=== PATIENT | female | born 1985 | race Caucasian/White ===

== ENCOUNTER 2018-06-10 13:23 | Observation (INO) | payer BC ==
[2018-06-10] MEDS ORDERED: Ketorolac 30 MG/ML SDV IVPUSH ONE (15:45)
[2018-06-10] MEDS ORDERED: Sodium Chloride 0.9% 1,000 ML IV ONE (15:45)
[2018-06-10] MEDS ORDERED: Ondansetron 4 MG/2 ML SDV IVPUSH ONE (15:45)
[2018-06-10 16:48] LABS: CHLORIDE,CL 102 mmol/L (98-107); SODIUM,NA 142 mmol/L (136-145)
[2018-06-10] MEDS ORDERED: Potassium Chloride Riders 40 MEQ in Premix Bag 1 BAG IV ONE (17:31)
[2018-06-10] MEDS ORDERED: Iopamidol 755 MG/ML 500 ML Multipack Bottle IVPUSH STA (19:29)
--- NOTE | 2018-06-10 20:29 | CT ---
INDICATION: Pain. Gastric bypass 7 weeks ago. History of , D and C, constipation and abdominal pain. TECHNIQUE: CT abdomen and pelvis acquired with 100 mL of Isovue 370 IV contrast. COMPARISON: None. FINDINGS: Lower chest: Unremarkable. Liver: Unremarkable. Spleen: Unremarkable. Pancreas: Unremarkable. Gallbladder and bile ducts: Unremarkable. Kidneys: Unremarkable. Adrenal glands: Unremarkable. GI tract: Changes of gastric bypass. No bowel obstruction or focal inflammatory changes involving the GI tract. The appendix is normal in appearance. No free air, free fluid or drainable fluid collection. Vascular structures: Unremarkable. Lymph nodes: Unremarkable. Pelvic Organs: Intrauterine device is present. Low densities suggesting nabothian cysts in the cervix. Bilateral adnexal regions as imaged are unremarkable. Bladder as imaged is unremarkable. Bones: No acute abnormality. IMPRESSION: No acute intra-abdominal or pelvic abnormality. Dictated by Abner Cardoso MD @ 06/10/2018 8:26:35 PM Please note that all CT scans at this facility use dose modulation, iterative reconstruction, and/or weight-based dosing when appropriate to reduce radiation dose to as low as reasonably achievable. Dictated by: Abner Cardoso MD @ 06/10/2018 20:27:08 (Electronically Signed)
--- NOTE | 2018-06-10 21:09 | EDM.PDOC ---
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 Musculoskeletal History: Reports: None Neurological History: Reports: None Psychiatric History: Reports: None Endocrine/Metabolic History: Reports: None Hematologic History: Reports: None Immunologic History: Reports: None Oncologic (Cancer) History: Reports: None Dermatologic History: Reports: None - Infectious Disease History Infectious Disease History: Reports: None - Past Surgical History Head Surgeries/Procedures: Reports: None GI Surgical History: Reports: Bariatric Procedure Other GI Surgeries/Procedures: gastric bypass 7 weeks ago Female Surgical History: Reports: Section, D&C Neurological Surgical History: Reports: None Social & Family History - Tobacco Use Smoking Status *Q: Never Smoker Second Hand Smoke Exposure: No - Caffeine Use Caffeine Use: Reports: None - Recreational Drug Use Recreational Drug Use: No Course - Vital Signs Last Recorded V/S: Last Vital Signs Temp 35.7 C 06/10/18 14:26 Pulse 84 06/10/18 20:00 Resp 18 06/10/18 20:00 BP 107/69 06/10/18 20:00 Pulse Ox 97 06/10/18 20:00 - Orders/Labs/Meds Orders: Active Orders 24 hr Category Date Time Status Admission Status [Patient Status] [ADT] Stat ADT 06/10/18 20:43 Ordered EKG Documentation Completion [RC] STAT Care 06/10/18 17:30 Active Notify Provider Consults [RC] ASDIRECTED Care 06/10/18 20:46 Ordered Consult to Physician [CONS] Stat Cons 06/10/18 20:45 Ordered CULTURE URINE [RM] Stat Lab 06/10/18 17:22 Received Potassium Chloride Riders [KCL 40 MEQ in Water 100 ML] Med 06/10/18 17:31 Active 40 meq Premix Bag 1 bag IV ONETIME Medication Orders Potassium Chloride 40 meq/ (Premix) 100 mls @ 25 mls/hr IV ONETIME ONE Stop: 06/10/18 21:30 Last Admin: 06/10/18 18:16 Dose: 25 mls/hr Labs: Laboratory Tests 06/10/18 06/10/18 06/10/18 Range/Units 16:15 16:15 16:15 WBC 5.70 (4.0-11.0) K/uL RBC 5.26 (4.30-5.90) M/uL Hgb 14.2 (12.0-16.0) g/dL Hct 41.6 (36.0-46.0) % MCV 79.1 L (80.0-98.0) fL MCH 27.0 (27.0-32.0) pg MCHC 34.1 (31.0-37.0) g/dL RDW Std Deviation 44.8 (28.0-62.0) fl RDW Coeff of Madelyn 16 H (11.0-15.0) % Plt Count 264 (150-400) K/uL MPV 11.60 (7.40-12.00) fL Neut % (Auto) 64.5 (48.0-80.0) % Lymph % (Auto) 20.9 (16.0-40.0) % [place] % (Auto) 14.6 (0.0-15.0) % Eos % (Auto) 0.0 (0.0-7.0) % Baso % (Auto) 0.0 (0.0-1.5) % Neut # (Auto) 3.7 (1.4-5.7) K/uL Lymph # (Auto) 1.2 (0.6-2.4) K/uL [place] # (Auto) 0.8 (0.0-0.8) K/uL Eos # (Auto) 0.0 (0.0-0.7) K/uL Baso # (Auto) 0.0 (0.0-0.1) K/uL Nucleated RBC % 0.0 /100WBC Nucleated RBCs # 0 K/uL Sodium 142 (136-145) mmol/L Potassium 2.5 L (3.5-5.1) mmol/L Chloride 102 (98-107) mmol/L Carbon Dioxide 18.7 L (21.0-32.0) mmol/L BUN 2 L (7.0-18.0) mg/dL Creatinine 0.7 (0.6-1.0) mg/dL Est Cr Clr Drug Dosing 110.01 mL/min Estimated GFR (MDRD) > 60.0 ml/min Glucose 113 H (74-106) mg/dL Calcium 9.6 (8.5-10.1) mg/dL Magnesium 1.8 (1.8-2.4) mg/dL Total Bilirubin 0.8 (0.2-1.0) mg/dL AST 31 (15-37) IU/L ALT 72 H (14-63) IU/L Alkaline Phosphatase 84 (46-116) U/L Total Protein 8.1 (6.4-8.2) g/dL Albumin 4.1 (3.4-5.0) g/dL Globulin 4.0 (2.6-4.0) g/dL Albumin/Globulin Ratio 1.0 (0.9-1.6) Lipase 82 (73-393) U/L Urine Color Urine Appearance Urine pH (5.0-8.0) Ur Specific [place] (1.001-1.035) Urine Protein (NEGATIVE) mg/dL Urine Glucose (UA) (NEGATIVE) mg/dL Urine Ketones (NEGATIVE) mg/dL Urine Occult Blood (NEGATIVE) Urine Nitrite (NEGATIVE) Urine Bilirubin (NEGATIVE) Urine Ictotest Urine Urobilinogen (<2.0) EU/dL Ur Leukocyte Esterase (NEGATIVE) Urine RBC (0-2/HPF) Urine WBC (0-5/HPF) Ur Epithelial Cells (NONE-FEW) Amorphous Sediment (NEGATIVE) Urine Bacteria (NEGATIVE) Urine HCG, Qual (NEGATIVE) 06/10/18 06/10/18 Range/Units 17:22 17:22 WBC (4.0-11.0) K/uL RBC (4.30-5.90) M/uL Hgb (12.0-16.0) g/dL Hct (36.0-46.0) % MCV (80.0-98.0) fL MCH (27.0-32.0) pg MCHC (31.0-37.0) g/dL RDW Std Deviation (28.0-62.0) fl RDW Coeff of Madelyn (11.0-15.0) % Plt Count (150-400) K/uL MPV (7.40-12.00) fL Neut % (Auto) (48.0-80.0) % Lymph % (Auto) (16.0-40.0) % [place] % (Auto) (0.0-15.0) % Eos % (Auto) (0.0-7.0) % Baso % (Auto) (0.0-1.5) % Neut # (Auto) (1.4-5.7) K/uL Lymph # (Auto) (0.6-2.4) K/uL [place] # (Auto) (0.0-0.8) K/uL Eos # (Auto) (0.0-0.7) K/uL Baso # (Auto) (0.0-0.1) K/uL Nucleated RBC % /100WBC Nucleated RBCs # K/uL Sodium (136-145) mmol/L Potassium (3.5-5.1) mmol/L Chloride (98-107) mmol/L Carbon Dioxide (21.0-32.0) mmol/L BUN (7.0-18.0) mg/dL Creatinine (0.6-1.0) mg/dL Est Cr Clr Drug Dosing mL/min Estimated GFR (MDRD) ml/min Glucose (74-106) mg/dL Calcium (8.5-10.1) mg/dL Magnesium (1.8-2.4) mg/dL Total Bilirubin (0.2-1.0) mg/dL AST (15-37) IU/L ALT (14-63) IU/L Alkaline Phosphatase (46-116) U/L Total Protein (6.4-8.2) g/dL Albumin (3.4-5.0) g/dL Globulin (2.6-4.0) g/dL Albumin/Globulin Ratio (0.9-1.6) Lipase (73-393) U/L Urine Color YELLOW Urine Appearance SLT CLOUDY Urine pH 6.0 (5.0-8.0) Ur Specific [place] >= 1.030 (1.001-1.035) Urine Protein 100 H (NEGATIVE) mg/dL Urine Glucose (UA) NEGATIVE (NEGATIVE) mg/dL Urine Ketones >=80 (NEGATIVE) mg/dL Urine Occult Blood MODERATE H (NEGATIVE) Urine Nitrite NEGATIVE (NEGATIVE) Urine Bilirubin MODERATE H (NEGATIVE) Urine Ictotest NEGATIVE Urine Urobilinogen 1.0 (<2.0) EU/dL Ur Leukocyte Esterase SMALL H (NEGATIVE) Urine RBC 4-6 (0-2/HPF) Urine WBC 8-10 (0-5/HPF) Ur Epithelial Cells MODERATE (NONE-FEW) Amorphous Sediment MODERATE (NEGATIVE) Urine Bacteria FEW (NEGATIVE) Urine HCG, Qual NEGATIVE (NEGATIVE) Meds: Medications Generic Name Dose Route Start Last Admin Trade Name Freq PRN Reason Stop Dose Admin Potassium Chloride 40 meq/ 100 mls @ 25 mls/hr 06/10/18 17:31 06/10/18 18:16 Premix IV 06/10/18 21:30 25 mls/hr ONETIME ONE Administration Discontinued Medications Generic Name Dose Route Start Last Admin Trade Name Freq PRN Reason Stop Dose Admin Sodium Chloride 1,000 mls @ 999 mls/hr 06/10/18 15:45 06/10/18 16:18 Normal Saline IV 06/10/18 16:45 999 mls/hr STAT ONE Administration Iopamidol 100 ml 06/10/18 19:29 06/10/18 19:33 Isovue Multipack-370 (76%) IVPUSH 06/10/18 19:30 100 ml ONETIME STA Administration Ketorolac Tromethamine 30 mg 06/10/18 15:45 06/10/18 16:19 Toradol IVPUSH 06/10/18 15:46 Not Given ONETIME ONE Ondansetron HCl 4 mg 06/10/18 15:45 06/10/18 16:19 Zofran IVPUSH 06/10/18 15:46 4 mg ONETIME ONE Administration Departure - Discharge Information Referrals: PCP,Unknown [Primary Care Provider] - - My Orders Last 24 Hours: My Active Orders 06/10/18 17:22 CULTURE URINE [RM] Stat 06/10/18 17:30 EKG Documentation Completion [RC] STAT 06/10/18 17:31 Potassium Chloride Riders [KCL 40 MEQ in Water 100 ML] 40 meq Premix Bag 1 bag IV ONETIME 06/10/18 20:43 Admission Status [Patient Status] [ADT] Stat 06/10/18 20:45 Consult to Physician [CONS] Stat 06/10/18 20:46 Notify Provider Consults [RC] ASDIRECTED - Assessment/Plan Last 24 Hours: My Active Orders 06/10/18 17:22 CULTURE URINE [RM] Stat 06/10/18 17:30 EKG Documentation Completion [RC] STAT 06/10/18 17:31 Potassium Chloride Riders [KCL 40 MEQ in Water 100 ML] 40 meq Premix Bag 1 bag IV ONETIME 06/10/18 20:43 Admission Status [Patient Status] [ADT] Stat 06/10/18 20:45 Consult to Physician [CONS] Stat 06/10/18 20:46 Notify Provider Consults [RC] ASDIRECTED
[2018-06-10] MEDS ORDERED: Ondansetron 4 MG/2 ML SDV IVPUSH PRN (21:38)
[2018-06-10] MEDS ORDERED: Acetaminophen 325 MG Tab PO PRN (21:38)
[2018-06-10] MEDS ORDERED: oxyCODONE 5 MG Tab PO PRN (21:39)
[2018-06-10] MEDS ORDERED: Temazepam 15 MG Cap PO PRN (21:39)
[2018-06-10] MEDS ORDERED: Sodium Chloride 0.9% with KCl 1,000 ML IV SCH (21:45)
[2018-06-10] MEDS ORDERED: cefTRIAXone 1 GM in Sodium Chloride 0.9% 50 ML IV ONE (22:00)
[2018-06-11 06:44] LABS: CHLORIDE,CL 111 mmol/L (98-107); SODIUM,NA 147 mmol/L (136-145)
--- NOTE | 2018-06-11 07:27 | PCM.HP ---
H&P History of Present Illness - General Date of Service: 06/11/18 Admit Problem/Dx: Admission Diagnosis/Problem Admission Diagnosis/Problem Hypokalemia Source of Information: Patient History Limitations: Reports: No Limitations - History of Present Illness Initial Comments - Free Text/Narative: The patient is a 32-year-old lady who had presented to the emergency department with a complaint of nausea and vomiting. The patient is 7 weeks postop gastric bypass which was completed in [facility]. The patient says that she has had nausea and has been unable to keep fluids down for the past several days. She also has not been able to keep her vitamins and supplements down as well. In the emergency department the patient was noted to have severe hypokalemia. Surgery had been consulted in regards to possibility of this being a surgical issue with regards to her nausea and vomiting. She was admitted to observation for correction of the hypokalemia. The patient has had some mild abdominal pain but she has no specific aggravating or relieving factors. Onset of Symptoms: Reports: Sudden Duration of Symptoms: Reports: Day(s):, Getting Worse Location: Reports: Abdomen Quality: Reports: Stabbing, Throbbing Severity: Moderate Improves with: Reports: Medication, Rest Worsens with: Reports: Eating Associated Symptoms: Reports: Nausea/Vomiting - Related Data Allergies/Adverse Reactions: Allergies Allergy/AdvReac Type Severity Reaction Status Date / Time No Known Allergies Allergy Verified 06/11/18 05:08 Home Medications: Home Meds Promethazine [Phenergan] 25 ml EP Q6HR 06/10/18 [History] Scopolamine [Transderm-Scop] 1 mg EP 06/10/18 [History] Venlafaxine HCl [Venlafaxine ER] 150 mg PO DAILY 06/10/18 [History] Past Medical History HEENT History: Reports: None Other HEENT History: glasse Cardiovascular History: Reports: None Respiratory History: Reports: None Gastrointestinal History: Reports: None Genitourinary History: Reports: None 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: Musculoskeletal History: Reports: None Neurological History: Reports: None Psychiatric History: Reports: None Endocrine/Metabolic History: Reports: None Hematologic History: Reports: None Immunologic History: Reports: None Oncologic (Cancer) History: Reports: None Dermatologic History: Reports: None - Infectious Disease History Infectious Disease History: Reports: None - Past Surgical History Head Surgeries/Procedures: Reports: None GI Surgical History: Reports: Bariatric Procedure Other GI Surgeries/Procedures: gastric bypass 7 weeks ago Female Surgical History: Reports: Section, D&C Neurological Surgical History: Reports: None Social & Family History - Family History Cardiac: Reports: Other (See Below) Other Cardiac Family History: heart disease Respiratory: Reports: Asthma Endocrine/Metabolic: Reports: Diabetes, type II Oncologic: Reports: Other (See Below) Other Oncologic Family History: did not specify type - Tobacco Use Smoking Status *Q: Never Smoker Second Hand Smoke Exposure: No - Caffeine Use Caffeine Use: Reports: None - Recreational Drug Use Recreational Drug Use: No - Living Situation & Occupation Living situation: Reports: Occupation: Employed H&P Review of Systems - Review of Systems: Review Of Systems: See Below General: Reports: Weakness, Fatigue HEENT: Reports: No Symptoms Pulmonary: Reports: No Symptoms Cardiovascular: Reports: No Symptoms Gastrointestinal: Reports: Abdominal Pain, Nausea, Vomiting Genitourinary: Reports: No Symptoms Musculoskeletal: Reports: No Symptoms Skin: Reports: No Symptoms Psychiatric: Reports: No Symptoms Neurological: Reports: No Symptoms Hematologic/Lymphatic: Reports: No Symptoms Immunologic: Reports: No Symptoms Exam - Exam Exam: See Below - Vital Signs Vital Signs: Last Vital Signs Temp 36.4 C 06/11/18 04:00 Pulse 71 06/11/18 04:00 Resp 14 06/11/18 04:00 BP 101/62 06/11/18 04:00 Pulse Ox 98 06/11/18 04:00 Weight: 86.636 kg - Exam Quality Assessment: No: Supplemental Oxygen General: Alert, Oriented, Cooperative, Mild Distress HEENT: Conjunctiva Clear, EACs Clear, EOMI, Pupils Equal, PERRLA. No: Mucosa Moist & [place] (Dry) Neck: Supple, Trachea Midline Lungs: Clear to Auscultation, Normal Respiratory Effort Cardiovascular: Regular Rate, Regular Rhythm GI/Abdominal Exam: Normal Bowel Sounds, Soft, Non-Tender, No Distention, Other ( Obese) (Female) Exam: Deferred Rectal (Female) Exam: Deferred Back Exam: Normal Inspection, Full Range of Motion Extremities: Normal Inspection, No Pedal Edema Skin: Warm, Dry, Intact Neurological: Cranial Nerves Intact Neuro Extensive - Mental Status: Alert, Oriented x3 Psychiatric: Alert, Normal Affect, Normal Mood - Patient Data Lab Results Last 24 hrs: Laboratory Results - last 24 hr 06/10/18 06/10/18 06/10/18 Range/Units 16:15 16:15 16:15 WBC 5.70 (4.0-11.0) K/uL RBC 5.26 (4.30-5.90) M/uL Hgb 14.2 (12.0-16.0) g/dL Hct 41.6 (36.0-46.0) % MCV 79.1 L (80.0-98.0) fL MCH 27.0 (27.0-32.0) pg MCHC 34.1 (31.0-37.0) g/dL RDW Std Deviation 44.8 (28.0-62.0) fl RDW Coeff of Madelyn 16 H (11.0-15.0) % Plt Count 264 (150-400) K/uL MPV 11.60 (7.40-12.00) fL Neut % (Auto) 64.5 (48.0-80.0) % Lymph % (Auto) 20.9 (16.0-40.0) % [place] % (Auto) 14.6 (0.0-15.0) % Eos % (Auto) 0.0 (0.0-7.0) % Baso % (Auto) 0.0 (0.0-1.5) % Neut # (Auto) 3.7 (1.4-5.7) K/uL Lymph # (Auto) 1.2 (0.6-2.4) K/uL [place] # (Auto) 0.8 (0.0-0.8) K/uL Eos # (Auto) 0.0 (0.0-0.7) K/uL Baso # (Auto) 0.0 (0.0-0.1) K/uL Nucleated RBC % 0.0 /100WBC Nucleated RBCs # 0 K/uL Sodium 142 (136-145) mmol/L Potassium 2.5 L (3.5-5.1) mmol/L Chloride 102 (98-107) mmol/L Carbon Dioxide 18.7 L (21.0-32.0) mmol/L BUN 2 L (7.0-18.0) mg/dL Creatinine 0.7 (0.6-1.0) mg/dL Est Cr Clr Drug Dosing 110.01 mL/min Estimated GFR (MDRD) > 60.0 ml/min Glucose 113 H (74-106) mg/dL Calcium 9.6 (8.5-10.1) mg/dL Magnesium 1.8 (1.8-2.4) mg/dL Total Bilirubin 0.8 (0.2-1.0) mg/dL AST 31 (15-37) IU/L ALT 72 H (14-63) IU/L Alkaline Phosphatase 84 (46-116) U/L Total Protein 8.1 (6.4-8.2) g/dL Albumin 4.1 (3.4-5.0) g/dL Globulin 4.0 (2.6-4.0) g/dL Albumin/Globulin Ratio 1.0 (0.9-1.6) Lipase 82 (73-393) U/L Urine Color Urine Appearance Urine pH (5.0-8.0) Ur Specific [place] (1.001-1.035) Urine Protein (NEGATIVE) mg/dL Urine Glucose (UA) (NEGATIVE) mg/dL Urine Ketones (NEGATIVE) mg/dL Urine Occult Blood (NEGATIVE) Urine Nitrite (NEGATIVE) Urine Bilirubin (NEGATIVE) Urine Ictotest Urine Urobilinogen (<2.0) EU/dL Ur Leukocyte Esterase (NEGATIVE) Urine RBC (0-2/HPF) Urine WBC (0-5/HPF) Ur Epithelial Cells (NONE-FEW) Amorphous Sediment (NEGATIVE) Urine Bacteria (NEGATIVE) Urine HCG, Qual (NEGATIVE) 06/10/18 06/10/18 06/11/18 Range/Units 17:22 17:22 06:21 WBC 4.75 (4.0-11.0) K/uL RBC 4.47 (4.30-5.90) M/uL Hgb 11.6 L (12.0-16.0) g/dL Hct 35.6 L (36.0-46.0) % MCV 79.6 L (80.0-98.0) fL MCH 26.0 L (27.0-32.0) pg MCHC 32.6 (31.0-37.0) g/dL RDW Std Deviation 45.6 (28.0-62.0) fl RDW Coeff of Madelyn 16 H (11.0-15.0) % Plt Count 233 (150-400) K/uL MPV 11.70 (7.40-12.00) fL Neut % (Auto) 57.0 (48.0-80.0) % Lymph % (Auto) 33.1 (16.0-40.0) % [place] % (Auto) 9.9 (0.0-15.0) % Eos % (Auto) 0.0 (0.0-7.0) % Baso % (Auto) 0.0 (0.0-1.5) % Neut # (Auto) 2.7 (1.4-5.7) K/uL Lymph # (Auto) 1.6 (0.6-2.4) K/uL [place] # (Auto) 0.5 (0.0-0.8) K/uL Eos # (Auto) 0.0 (0.0-0.7) K/uL Baso # (Auto) 0.0 (0.0-0.1) K/uL Nucleated RBC % 0.0 /100WBC Nucleated RBCs # 0 K/uL Sodium (136-145) mmol/L Potassium (3.5-5.1) mmol/L Chloride (98-107) mmol/L Carbon Dioxide (21.0-32.0) mmol/L BUN (7.0-18.0) mg/dL Creatinine (0.6-1.0) mg/dL Est Cr Clr Drug Dosing mL/min Estimated GFR (MDRD) ml/min Glucose (74-106) mg/dL Calcium (8.5-10.1) mg/dL Magnesium (1.8-2.4) mg/dL Total Bilirubin (0.2-1.0) mg/dL AST (15-37) IU/L ALT (14-63) IU/L Alkaline Phosphatase (46-116) U/L Total Protein (6.4-8.2) g/dL Albumin (3.4-5.0) g/dL Globulin (2.6-4.0) g/dL Albumin/Globulin Ratio (0.9-1.6) Lipase (73-393) U/L Urine Color YELLOW Urine Appearance SLT CLOUDY Urine pH 6.0 (5.0-8.0) Ur Specific [place] >= 1.030 (1.001-1.035) Urine Protein 100 H (NEGATIVE) mg/dL Urine Glucose (UA) NEGATIVE (NEGATIVE) mg/dL Urine Ketones >=80 (NEGATIVE) mg/dL Urine Occult Blood MODERATE H (NEGATIVE) Urine Nitrite NEGATIVE (NEGATIVE) Urine Bilirubin MODERATE H (NEGATIVE) Urine Ictotest NEGATIVE Urine Urobilinogen 1.0 (<2.0) EU/dL Ur Leukocyte Esterase SMALL H (NEGATIVE) Urine RBC 4-6 (0-2/HPF) Urine WBC 8-10 (0-5/HPF) Ur Epithelial Cells MODERATE (NONE-FEW) Amorphous Sediment MODERATE (NEGATIVE) Urine Bacteria FEW (NEGATIVE) Urine HCG, Qual NEGATIVE (NEGATIVE) 06/11/18 Range/Units 06:21 WBC (4.0-11.0) K/uL RBC (4.30-5.90) M/uL Hgb (12.0-16.0) g/dL Hct (36.0-46.0) % MCV (80.0-98.0) fL MCH (27.0-32.0) pg MCHC (31.0-37.0) g/dL RDW Std Deviation (28.0-62.0) fl RDW Coeff of Madelyn (11.0-15.0) % Plt Count (150-400) K/uL MPV (7.40-12.00) fL Neut % (Auto) (48.0-80.0) % Lymph % (Auto) (16.0-40.0) % Benzie % (Auto) (0.0-15.0) % Eos % (Auto) (0.0-7.0) % Baso % (Auto) (0.0-1.5) % Neut # (Auto) (1.4-5.7) K/uL Lymph # (Auto) (0.6-2.4) K/uL [place]zie # (Auto) (0.0-0.8) K/uL Eos # (Auto) (0.0-0.7) K/uL Baso # (Auto) (0.0-0.1) K/uL Nucleated RBC % /100WBC Nucleated RBCs # K/uL Sodium 147 H (136-145) mmol/L Potassium 3.3 L (3.5-5.1) mmol/L Chloride 111 H (98-107) mmol/L Carbon Dioxide 19.3 L (21.0-32.0) mmol/L BUN 1 L (7.0-18.0) mg/dL Creatinine 0.6 (0.6-1.0) mg/dL Est Cr Clr Drug Dosing 118.39 mL/min Estimated GFR (MDRD) > 60.0 ml/min Glucose 79 (74-106) mg/dL Calcium 8.8 (8.5-10.1) mg/dL Magnesium (1.8-2.4) mg/dL Total Bilirubin (0.2-1.0) mg/dL AST (15-37) IU/L ALT (14-63) IU/L Alkaline Phosphatase (46-116) U/L Total Protein (6.4-8.2) g/dL Albumin (3.4-5.0) g/dL Globulin (2.6-4.0) g/dL Albumin/Globulin Ratio (0.9-1.6) Lipase (73-393) U/L Urine Color Urine Appearance Urine pH (5.0-8.0) Ur Specific [place] (1.001-1.035) Urine Protein (NEGATIVE) mg/dL Urine Glucose (UA) (NEGATIVE) mg/dL Urine Ketones (NEGATIVE) mg/dL Urine Occult Blood (NEGATIVE) Urine Nitrite (NEGATIVE) Urine Bilirubin (NEGATIVE) Urine Ictotest Urine Urobilinogen (<2.0) EU/dL Ur Leukocyte Esterase (NEGATIVE) Urine RBC (0-2/HPF) Urine WBC (0-5/HPF) Ur Epithelial Cells (NONE-FEW) Amorphous Sediment (NEGATIVE) Urine Bacteria (NEGATIVE) Urine HCG, Qual (NEGATIVE) Result Diagrams: 06/11/18 06:21 06/11/18 06:21 - Problem List (1) Acute hypokalemia SNOMED Code(s): 30484632 ICD Code: E87.6 - HYPOKALEMIA Status: Acute Priority: High Current Visit: Yes (2) UTI (urinary tract infection) SNOMED Code(s): 95707720 ICD Code: N39.0 - URINARY TRACT INFECTION, SITE NOT SPECIFIED Status: Acute Priority: High Current Visit: Yes Qualifiers: Urinary tract infection type: acute cystitis Hematuria presence: without hematuria Qualified Code(s): N30.00 - Acute cystitis without hematuria (3) Dehydration SNOMED Code(s): 95095701 ICD Code: E86.0 - DEHYDRATION Status: Acute Priority: High Current Visit: Yes (4) Nausea & vomiting SNOMED Code(s): 00511142 ICD Code: R11.2 - NAUSEA WITH VOMITING, UNSPECIFIED Status: Acute Priority: High Current Visit: Yes Qualifiers: Vomiting type: bilious vomiting Qualified Code(s): R11.14 - Bilious vomiting (5) Status post gastric bypass for obesity SNOMED Code(s): 757500272, 049019261, 484990227, 541155389 ICD Code: Z98.84 - BARIATRIC SURGERY STATUS Status: Chronic Priority: High Current Visit: Yes Problem Details: 7 weeks post (6) Obesity (BMI 30.0-34.9) SNOMED Code(s): 753407130296725 ICD Code: E66.9 - OBESITY, UNSPECIFIED Status: Chronic Priority: High Current Visit: Yes Problem List Initiated/Reviewed/Updated: Yes Orders Last 24hrs: Active Orders 24 hr Category Date Time Status Admission Status [Patient Status] [ADT] Stat ADT 06/10/18 20:43 Active Notify Provider Consults [RC] ASDIRECTED Care 06/10/18 20:46 Active Consult to Physician [CONS] Stat Cons 06/10/18 20:45 Active NPO [Nothing Per Oral Diet] [DIET] Diet 06/11/18 Breakfast Active CULTURE URINE [RM] Stat Lab 06/10/18 17:22 Received Acetaminophen [Tylenol] Med 06/10/18 21:38 Active 650 mg PO Q4H PRN Ondansetron [Zofran] Med 06/10/18 21:38 Active 4 mg IVPUSH Q4H PRN Sodium Chloride 0.9% with KCl [Normal Saline with 40 Med 06/10/18 21:45 Active mEq KCl] 1,000 ml IV ASDIRECTED Temazepam [Restoril] Med 06/10/18 21:39 Active 15 mg PO BEDTIME PRN oxyCODONE Med 06/10/18 21:39 Active 5 mg PO Q4H PRN Medication Orders Acetaminophen (Tylenol) 650 mg PO Q4H PRN PRN Reason: Pain (mild 1-3) Potassium Chloride/Sodium Chloride (Normal Saline With 40 Meq Kcl) 1,000 mls @ 100 mls/hr IV ASDIRECTED [facility] Last Admin: 06/10/18 22:29 Dose: 100 mls/hr Ondansetron HCl (Zofran) 4 mg IVPUSH Q4H PRN PRN Reason: Nausea/Vomiting Oxycodone HCl (Oxycodone) 5 mg PO Q4H PRN PRN Reason: Pain (moderate 4-6) Temazepam (Restoril) 15 mg PO BEDTIME PRN PRN Reason: Sleep Assessment/Plan Comment:: The patient is an otherwise healthy 32-year-old lady was having episodes of hypokalemia secondary to GI losses from nausea and vomiting. This is been complicated by the picture that the patient has had bariatric surgery 7 weeks ago. This was done secondary to the patient's obesity which is currently listed at 32.8 kg/m. When the patient's nausea and vomiting has been controlled sufficiently she should be able to continue with her supplements in order to help to avoid recurrence of hypokalemic events. Should also be noted that the patient should continue her iron supplements as well as with fluid hydration for dehydration she was noted to have mild anemia with low RBC indices indicating iron deficiency. If the patient's symptoms have been controlled and the patient's hypokalemia had been improved sufficiently she would be appropriate for discharge. Repeat laboratory studies have been ordered. The patient also has been encouraged to ambulate.
[2018-06-11] MEDS ORDERED: Sodium Chloride 0.9% 1,000 ML IV SCH (07:30)
[2018-06-11] MEDS: Venlafaxine 75 MG Cap.ER PO SCH (09:36)
[2018-06-11] MEDS: Enoxaparin 40 MG/0.4 ML Syringe SUBCUT SCH (09:37)
--- NOTE | 2018-06-11 11:52 | EDM.PDOC ---
ED HPI GENERAL MEDICAL PROBLEM - General Chief Complaint: General Stated Complaint: NEEDING FLUIDS Time Seen by Provider: 06/10/18 15:44 Source of Information: Reports: Patient History Limitations: Reports: No Limitations - History of Present Illness INITIAL COMMENTS - FREE TEXT/NARRATIVE: HISTORY AND PHYSICAL: History of present illness: (patient seen yesterday 06/11/18 but technical issue with note occurred yesterday ) Patient is a 32-year-old female who presents to the ED today with concern for dehydration and nausea. Patient states 7-8 weeks ago she had a history of gastric bypass surgery. Patient states she's had issues with being able to eat since surgery. Patient states she did have an appointment on Tuesday with her surgeon and she had been working on adjusting some of her food intake. Patient states over the past 6-8 days the thought of trying to eat has made her vomit. Since then she states she hasn't been able to keep any food down and minimal fluid. Patient denies fever, chills, chest pain, shortness of breath, or cough. Denies headache, neck stiff ness, change in vision, syncope, or near syncope. Denies abdominal pain, diarrhea, constipation, or dysuria. Has not noted any blood in urine or stool. Patient has been eating and drinking appropriately. Review of systems: As per history of present illness and below otherwise all systems reviewed and negative. Past medical history: As per history of present illness and as reviewed below otherwise noncontributory. Surgical history: As per history of present illness and as reviewed below otherwise noncontributory. Social history: See social history for further information Family history: As per history of present illness and as reviewed below otherwise noncontributory. Physical exam: General: Patient is alert, oriented, and in no acute distress. Patient sitting comfortably on exam table. HEENT: Atraumatic, normocephalic, pupils equal and reactive bilaterally, negative for conjunctival pallor or scleral icterus, mucous membranes dry, TMs normal bilaterally, throat clear, neck supple, nontender, trachea midline. No drooling or trismus noted. No meningeal signs. No hot potato voice noted. Lungs: Clear to auscultation, breath sounds equal bilaterally, chest nontender. Heart: S1S2, regular rate and rhythm without overt murmur Abdomen: Soft, nondistended, nontender. Negative for masses or hepatosplenomegaly. Negative for costovertebral tenderness. Pelvis: Stable nontender. Genitourinary: Deferred. Rectal: Deferred. Skin: Intact, warm, dry. No lesions or rashes noted. Extremities: Atraumatic, negative for cords or calf pain. Neurovascular unremarkable. Neuro: Awake, alert, oriented. Cranial nerves II through XII unremarkable. Cerebellum unremarkable. Motor and sensory unremarkable throughout. Exam nonfocal. Notes: Dr. Blackman consulted on patient and will admit to observation. Diagnostics: CBC, CMP, UA, abdominal pelvic CT Therapeutics: Saline, potassium rider Impression: Hypokalemia Dehydration h/o gastric bypass surgery Plan: 1. Admit to observation to Dr. Blackman. Definitive disposition and diagnosis as appropriate pending reevaluation and review of above. Onset: Sudden Duration: Day(s):, Getting Worse Location: Reports: Abdomen Quality: Reports: Stabbing, Throbbing Severity: Moderate Improves with: Reports: Medication, Rest Worsens with: Reports: Eating Associated Symptoms: Reports: Nausea/Vomiting - Related Data Allergies Allergy/AdvReac Type Severity Reaction Status Date / Time No Known Allergies Allergy Verified 06/11/18 05:08 Home Meds: Home Meds Scopolamine [Transderm-Scop] 1 mg EP 06/10/18 [History] Venlafaxine HCl [Venlafaxine ER] 150 mg PO DAILY 06/10/18 [History] Ciprofloxacin HCl 500 mg PO BID #10 tablet 06/11/18 [Rx] Ondansetron [Zofran ODT] 4 mg PO Q6H PRN #12 tab.dis 06/11/18 [Rx] Past Medical History HEENT History: Reports: None Other HEENT History: glasse Cardiovascular History: Reports: None Respiratory History: Reports: None Gastrointestinal History: Reports: None Genitourinary History: Reports: None [employer] History: Reports: Musculoskeletal History: Reports: None Neurological History: Reports: None Psychiatric History: Reports: None Endocrine/Metabolic History: Reports: None Hematologic History: Reports: None Immunologic History: Reports: None Oncologic (Cancer) History: Reports: None Dermatologic History: Reports: None - Infectious Disease History Infectious Disease History: Reports: None - Past Surgical History Head Surgeries/Procedures: Reports: None GI Surgical History: Reports: Bariatric Procedure Other GI Surgeries/Procedures: gastric bypass 7 weeks ago Female Surgical History: Reports: Section, D&C Neurological Surgical History: Reports: None Social & Family History - Family History Cardiac: Reports: Other (See Below) Other Cardiac Family History: heart disease Respiratory: Reports: Asthma Endocrine/Metabolic: Reports: Diabetes, type II Oncologic: Reports: Other (See Below) Other Oncologic Family History: did not specify type - Tobacco Use Smoking Status *Q: Never Smoker Second Hand Smoke Exposure: No - Caffeine Use Caffeine Use: Reports: None - Recreational Drug Use Recreational Drug Use: No - Living Situation & Occupation Living situation: Reports: Occupation: Employed ED ROS GENERAL - Review of Systems Review Of Systems: ROS reveals no pertinent complaints other than HPI. ED EXAM, GENERAL - Physical Exam Exam: See Below (See dictation) GI/Abdominal: Normal Bowel Sounds, Soft, Non-Tender, No Distention, Other (Obese ) Back Exam: Normal Inspection, Full Range of Motion Extremities: Normal Inspection, No Pedal Edema Course - Vital Signs Last Recorded V/S: Last Vital Signs Temp 35.9 C 06/11/18 07:28 Pulse 86 06/11/18 07:28 Resp 16 06/11/18 07:28 BP 111/75 06/11/18 07:28 Pulse Ox 99 06/11/18 07:28 - Orders/Labs/Meds Orders: Active Orders 24 hr Category Date Time Status CULTURE URINE [RM] Stat Lab 06/10/18 17:22 Received Medication Orders Acetaminophen (Tylenol) 650 mg PO Q4H PRN PRN Reason: Pain (mild 1-3) Enoxaparin Sodium (Lovenox) 40 mg SUBCUT Q24H [facility] Last Admin: 06/11/18 09:37 Dose: 40 mg Potassium Chloride/Sodium Chloride (Normal Saline With 40 Meq Kcl) 1,000 mls @ 100 mls/hr IV ASDIRECTED REUBEN Last Admin: 06/10/18 22:29 Dose: 100 mls/hr Sodium Chloride (Normal Saline) 1,000 mls @ 75 mls/hr IV ASDIRECTED REUBEN Last Admin: 06/11/18 09:35 Dose: 75 mls/hr Ondansetron HCl (Zofran) 4 mg IVPUSH Q4H PRN PRN Reason: Nausea/Vomiting Last Admin: 06/11/18 09:51 Dose: 4 mg Oxycodone HCl (Oxycodone) 5 mg PO Q4H PRN PRN Reason: Pain (moderate 4-6) Temazepam (Restoril) 15 mg PO BEDTIME PRN PRN Reason: Sleep Venlafaxine HCl (Effexor Xr) 150 mg PO DAILY REUBEN Last Admin: 06/11/18 09:36 Dose: 150 mg Labs: Laboratory Tests 06/10/18 06/10/18 06/10/18 Range/Units 16:15 16:15 16:15 WBC 5.70 (4.0-11.0) K/uL RBC 5.26 (4.30-5.90) M/uL Hgb 14.2 (12.0-16.0) g/dL Hct 41.6 (36.0-46.0) % MCV 79.1 L (80.0-98.0) fL MCH 27.0 (27.0-32.0) pg MCHC 34.1 (31.0-37.0) g/dL RDW Std Deviation 44.8 (28.0-62.0) fl RDW Coeff of Madelyn 16 H (11.0-15.0) % Plt Count 264 (150-400) K/uL MPV 11.60 (7.40-12.00) fL Neut % (Auto) 64.5 (48.0-80.0) % Lymph % (Auto) 20.9 (16.0-40.0) % Placer % (Auto) 14.6 (0.0-15.0) % Eos % (Auto) 0.0 (0.0-7.0) % Baso % (Auto) 0.0 (0.0-1.5) % Neut # (Auto) 3.7 (1.4-5.7) K/uL Lymph # (Auto) 1.2 (0.6-2.4) K/uL Placer # (Auto) 0.8 (0.0-0.8) K/uL Eos # (Auto) 0.0 (0.0-0.7) K/uL Baso # (Auto) 0.0 (0.0-0.1) K/uL Nucleated RBC % 0.0 /100WBC Nucleated RBCs # 0 K/uL Sodium 142 (136-145) mmol/L Potassium 2.5 L (3.5-5.1) mmol/L Chloride 102 (98-107) mmol/L Carbon Dioxide 18.7 L (21.0-32.0) mmol/L BUN 2 L (7.0-18.0) mg/dL Creatinine 0.7 (0.6-1.0) mg/dL Est Cr Clr Drug Dosing 110.01 mL/min Estimated GFR (MDRD) > 60.0 ml/min Glucose 113 H (74-106) mg/dL Calcium 9.6 (8.5-10.1) mg/dL Magnesium 1.8 (1.8-2.4) mg/dL Total Bilirubin 0.8 (0.2-1.0) mg/dL AST 31 (15-37) IU/L ALT 72 H (14-63) IU/L Alkaline Phosphatase 84 (46-116) U/L Total Protein 8.1 (6.4-8.2) g/dL Albumin 4.1 (3.4-5.0) g/dL Globulin 4.0 (2.6-4.0) g/dL Albumin/Globulin Ratio 1.0 (0.9-1.6) Lipase 82 (73-393) U/L Urine Color Urine Appearance Urine pH (5.0-8.0) Ur Specific [place] (1.001-1.035) Urine Protein (NEGATIVE) mg/dL Urine Glucose (UA) (NEGATIVE) mg/dL Urine Ketones (NEGATIVE) mg/dL Urine Occult Blood (NEGATIVE) Urine Nitrite (NEGATIVE) Urine Bilirubin (NEGATIVE) Urine Ictotest Urine Urobilinogen (<2.0) EU/dL Ur Leukocyte Esterase (NEGATIVE) Urine RBC (0-2/HPF) Urine WBC (0-5/HPF) Ur Epithelial Cells (NONE-FEW) Amorphous Sediment (NEGATIVE) Urine Bacteria (NEGATIVE) Urine HCG, Qual (NEGATIVE) 06/10/18 06/10/18 Range/Units 17:22 17:22 WBC (4.0-11.0) K/uL RBC (4.30-5.90) M/uL Hgb (12.0-16.0) g/dL Hct (36.0-46.0) % MCV (80.0-98.0) fL MCH (27.0-32.0) pg MCHC (31.0-37.0) g/dL RDW Std Deviation (28.0-62.0) fl RDW Coeff of Madelyn (11.0-15.0) % Plt Count (150-400) K/uL MPV (7.40-12.00) fL Neut % (Auto) (48.0-80.0) % Lymph % (Auto) (16.0-40.0) % Placer % (Auto) (0.0-15.0) % Eos % (Auto) (0.0-7.0) % Baso % (Auto) (0.0-1.5) % Neut # (Auto) (1.4-5.7) K/uL Lymph # (Auto) (0.6-2.4) K/uL Placer # (Auto) (0.0-0.8) K/uL Eos # (Auto) (0.0-0.7) K/uL Baso # (Auto) (0.0-0.1) K/uL Nucleated RBC % /100WBC Nucleated RBCs # K/uL Sodium (136-145) mmol/L Potassium (3.5-5.1) mmol/L Chloride (98-107) mmol/L Carbon Dioxide (21.0-32.0) mmol/L BUN (7.0-18.0) mg/dL Creatinine (0.6-1.0) mg/dL Est Cr Clr Drug Dosing mL/min Estimated GFR (MDRD) ml/min Glucose (74-106) mg/dL Calcium (8.5-10.1) mg/dL Magnesium (1.8-2.4) mg/dL Total Bilirubin (0.2-1.0) mg/dL AST (15-37) IU/L ALT (14-63) IU/L Alkaline Phosphatase (46-116) U/L Total Protein (6.4-8.2) g/dL Albumin (3.4-5.0) g/dL Globulin (2.6-4.0) g/dL Albumin/Globulin Ratio (0.9-1.6) Lipase (73-393) U/L Urine Color YELLOW Urine Appearance SLT CLOUDY Urine pH 6.0 (5.0-8.0) Ur Specific [place] >= 1.030 (1.001-1.035) Urine Protein 100 H (NEGATIVE) mg/dL Urine Glucose (UA) NEGATIVE (NEGATIVE) mg/dL Urine Ketones >=80 (NEGATIVE) mg/dL Urine Occult Blood MODERATE H (NEGATIVE) Urine Nitrite NEGATIVE (NEGATIVE) Urine Bilirubin MODERATE H (NEGATIVE) Urine Ictotest NEGATIVE Urine Urobilinogen 1.0 (<2.0) EU/dL Ur Leukocyte Esterase SMALL H (NEGATIVE) Urine RBC 4-6 (0-2/HPF) Urine WBC 8-10 (0-5/HPF) Ur Epithelial Cells MODERATE (NONE-FEW) Amorphous Sediment MODERATE (NEGATIVE) Urine Bacteria FEW (NEGATIVE) Urine HCG, Qual NEGATIVE (NEGATIVE) Meds: Medications Generic Name Dose Route Start Last Admin Trade Name Freq PRN Reason Stop Dose Admin Acetaminophen 650 mg 06/10/18 21:38 Tylenol PO Q4H PRN Pain (mild 1-3) Enoxaparin Sodium 40 mg 06/11/18 07:30 06/11/18 09:37 Lovenox SUBCUT 40 mg Q24H REUBEN Administration Potassium Chloride/Sodium Chloride 1,000 mls @ 100 mls/hr 06/10/18 21:45 22:29 Normal Saline With 40 Meq Kcl IV 100 mls/hr ASDIRECTED REUBEN Administration Sodium Chloride 1,000 mls @ 75 mls/hr 06/11/18 07:30 06/11/18 09:35 Normal Saline IV 75 mls/hr ASDIRECTED REUBEN Administration Ondansetron HCl 4 mg 06/10/18 21:38 06/11/18 09:51 Zofran IVPUSH 4 mg Q4H PRN Administration Nausea/Vomiting Oxycodone HCl 5 mg 06/10/18 21:39 Oxycodone PO Q4H PRN Pain (moderate 4-6) Temazepam 15 mg 06/10/18 21:39 Restoril PO BEDTIME PRN Sleep Venlafaxine HCl 150 mg 06/11/18 09:00 06/11/18 09:36 Effexor Xr PO 150 mg DAILY REUBEN Administration Discontinued Medications Generic Name Dose Route Start Last Admin Trade Name Freq PRN Reason Stop Dose Admin Sodium Chloride 1,000 mls @ 999 mls/hr 06/10/18 15:45 06/10/18 16:18 Normal Saline IV 06/10/18 16:45 999 mls/hr STAT ONE Administration Potassium Chloride 40 meq/ 100 mls @ 25 mls/hr 06/10/18 17:31 06/10/18 18:16 Premix IV 06/10/18 21:30 25 mls/hr ONETIME ONE Administration Ceftriaxone Sodium 1 gm/ 50 mls @ 100 mls/hr 06/10/18 22:00 06/11/18 00:11 Sodium Chloride IV 06/10/18 22:29 Not Given ONETIME ONE Ceftriaxone Sodium/Dextrose 50 mls @ 50 mls/hr 06/10/18 22:30 06/10/18 22:30 Rocephin In Dextrose,Iso-Osm 1 Gm/50 Ml IV 06/10/18 23:29 50 mls/hr ONETIME ONE Administration Iopamidol 100 ml 06/10/18 19:29 06/10/18 19:33 Isovue Multipack-370 (76%) IVPUSH 06/10/18 19:30 100 ml ONETIME STA Administration Ketorolac Tromethamine 30 mg 06/10/18 15:45 06/10/18 16:19 Toradol IVPUSH 06/10/18 15:46 Not Given ONETIME ONE Ondansetron HCl 4 mg 06/10/18 15:45 06/10/18 16:19 Zofran IVPUSH 06/10/18 15:46 4 mg ONETIME ONE Administration Departure - Departure Time of Disposition: 11:51 Disposition: Admitted As Inpatient 68 Clinical Impression: Hypokalemia, Dehydration, History of gastric bypass - Discharge Information *PRESCRIPTION DRUG MONITORING PROGRAM REVIEWED*: No *COPY OF PRESCRIPTION DRUG MONITORING REPORT IN PATIENT AUTUMN: No - My Orders Last 24 Hours: My Active Orders 06/10/18 17:22 CULTURE URINE [RM] Stat - Assessment/Plan Last 24 Hours: My Active Orders 06/10/18 17:22 CULTURE URINE [RM] Stat
[2018-06-11] MEDS ORDERED: Promethazine 25 MG Tab PO PRN (14:51)
[2018-06-11] MEDS: NS + KCl 20mEq/L 1,000 ML IV SCH ×2 (15:24→23:25)
[2018-06-11 15:47] LABS: CHLORIDE,CL 111 mmol/L (98-107); SODIUM,NA 146 mmol/L (136-145)
--- NOTE | 2018-06-11 18:09 | PCM.SN ---
- Free Text/Narrative Note: pt seen, chart reviewed; 1) uti > cipro X 5 days 2) replenish K as you are doing 3) keep on clear liquid till nausea improved 4) dulocolax 10 mg pr thanks for the consult and care of this pleasant pt; recall if questions
[2018-06-11] MEDS: Promethazine 25 MG/ML SDV IM PRN (18:32)
--- NOTE | 2018-06-12 00:14 | CONS ---
DATE OF CONSULTATION: 06/11/2018 DATE OF : 1985 PRIMARY CARE PHYSICIAN: None PCP REFERRING PHYSICIAN: Roosevelt Blackman DO CONSULTING QUESTION: Abdominal pain. HISTORY OF PRESENT ILLNESS: The patient is 32-year-old obese lady, 32.8 BMI today, 7 weeks' status post gastric bypass, laparoscopic surgery. Postop, the patient remarked she was doing fine at first and then the last 1 to 2 weeks, she started not feeling good and feeling dry heaves and also having diarrhea. With the situation not getting better, she sought help in the emergency room. CAT scan did not show any bowel obstruction or any dilated segment, but the patient continued to feel nausea and also potassium was low. The patient was admitted to Medicine to replenish the potassium. The patient remarked last bowel movement was about 6 days ago and was running diarrhea and in the hospital on the second day of hospitalization still feels nauseated. The patient absolutely denies any abdominal pain. Her abdominal pain has been resolved. The patient is passing gas and still feels nauseated. PAST MEDICAL HISTORY: Significant for no diabetes, DC, CVA, hypertension. PAST SURGICAL HISTORY: x1, D and C x1, and laparoscopic gastric bypass. ALLERGIES: Please refer to nursing for details. MEDICATION: Please refer to nursing for details. PHYSICAL EXAMINATION: GENERAL: A very pleasant lady getting up and getting out of bed in a freely manner and very polite and smiled to the doctor. HEENT EXAMINATION: Normocephalic and atraumatic. Sclerae are anicteric. LUNGS: Clear to auscultation. HEART: Regular rate and rhythm. ABDOMEN: Soft and nondistended. No pulsating tenderness in the midline abdominal structure. Well-healed laparoscopic surgical scar. Nontender. Normal bowel sounds in all four quadrants. No high-pitched bowel sounds. No hernia appreciated. LABORATORY DATA: Upon consultation, white count is 4.8, H and H is 12 and 36, and platelet is 238. Sodium 146, potassium 3.2, BUN is 1 and creatinine is 0.6. Total bilirubin is 0.8, AST and ALT 31 and 72, alkaline phosphatase is 84. Urine shows 4 to 6 rbc's and 8 to 10 wbc's and likely suggests UTI. IMPRESSION: Nauseated and hypokalemic, probably possible hypokalemic ileus and from UA, probably also the patient has a touch of urinary tract infection, will get a 5- day treatment of Cipro or Levaquin and will keep her on either clear liquid or ice chips at least for 2 to 3 days and also will give a dose of 10 mg Dulcolax per rectum and help her to move her bowel. The patient does not seem to have any abdominal pain at this stage. Abdominal pain has completely resolved and does not seem to have any surgical issue at this stage. We will sign off and recall if question. I agree with you to continue to replenish potassium. SUZAN / SINDY /[id number]
[2018-06-12 06:41] LABS: CHLORIDE,CL 114 mmol/L (98-107); SODIUM,NA 149 mmol/L (136-145)
[2018-06-12] MEDS: Enoxaparin 40 MG/0.4 ML Syringe SUBCUT SCH (06:50)
[2018-06-12] MEDS: NS + KCl 20mEq/L 1,000 ML IV SCH (08:09)
[2018-06-12] MEDS ORDERED: Magnesium Sulfate/Water 2 GM in Premix Bag 1 BAG IV ONE (09:03)
[2018-06-12] MEDS: Venlafaxine 75 MG Cap.ER PO SCH (09:06)
[2018-06-12] MEDS: Promethazine 25 MG/ML SDV IM PRN (09:07)
--- NOTE | 2018-06-12 09:15 | PCM.PN ---
<Steff Wood M - Last Filed: 06/12/18 10:59> - General Info Date of Service: 06/12/18 Admission Dx/Problem (Free Text): Admission Diagnosis/Problem Admission Diagnosis/Problem Hypokalemia, N/V Subjective Update: Continues to have intermittent nausea. Wanting to try more [place] diet today. No pain. Passing gas, no BM since . Functional Status: Reports: Pain Controlled, Ambulating, Urinating. Denies: Tolerating Diet - Review of Systems General: Reports: No Symptoms. Denies: Fever, Weakness, Fatigue HEENT: Reports: No Symptoms. Denies: Headaches, Sore Throat Pulmonary: Reports: No Symptoms. Denies: Shortness of Breath, Pleuritic Chest Pain Cardiovascular: Reports: No Symptoms. Denies: Chest Pain Gastrointestinal: Reports: Decreased Appetite, Flatus, Nausea. Denies: Abdominal Pain Genitourinary: Reports: No Symptoms Musculoskeletal: Reports: No Symptoms Skin: Reports: No Symptoms Neurological: Reports: No Symptoms Psychiatric: Reports: No Symptoms - Patient Data Vitals - Most Recent: Last Vital Signs Temp 97.2 F 06/12/18 07:48 Pulse 70 06/12/18 07:48 Resp 15 06/12/18 07:48 BP 119/71 06/12/18 07:48 Pulse Ox 99 06/12/18 07:48 Weight - Most Recent: 86.636 kg I&O - Last 24 Hours: Intake & Output 06/11/18 06/12/18 06/12/18 22:59 06:59 14:59 Intake Total 858 1992 Output Total 350 450 Balance 508 1542 Lab Results Last 24 Hours: Laboratory Results - last 24 hr 06/11/18 06/12/18 06/12/18 Range/Units 15:22 05:11 05:11 WBC (4.0-11.0) K/uL RBC (4.30-5.90) M/uL Hgb (12.0-16.0) g/dL Hct (36.0-46.0) % MCV (80.0-98.0) fL MCH (27.0-32.0) pg MCHC (31.0-37.0) g/dL RDW Std Deviation (28.0-62.0) fl RDW Coeff of Madelyn (11.0-15.0) % Plt Count (150-400) K/uL MPV (7.40-12.00) fL Neut % (Auto) (48.0-80.0) % Lymph % (Auto) (16.0-40.0) % Blount % (Auto) (0.0-15.0) % Eos % (Auto) (0.0-7.0) % Baso % (Auto) (0.0-1.5) % Neut # (Auto) (1.4-5.7) K/uL Lymph # (Auto) (0.6-2.4) K/uL Blount # (Auto) (0.0-0.8) K/uL Eos # (Auto) (0.0-0.7) K/uL Baso # (Auto) (0.0-0.1) K/uL Nucleated RBC % /100WBC Nucleated RBCs # K/uL Sodium 146 H 149 H (136-145) mmol/L Potassium 3.2 L 3.3 L (3.5-5.1) mmol/L Chloride 111 H 114 H (98-107) mmol/L Carbon Dioxide 14.5 L 19.0 L (21.0-32.0) mmol/L BUN 1 L 1 L (7.0-18.0) mg/dL Creatinine 0.6 0.6 (0.6-1.0) mg/dL Est Cr Clr Drug Dosing 118.39 118.39 mL/min Estimated GFR (MDRD) > 60.0 > 60.0 ml/min Glucose 96 71 L (74-106) mg/dL Calcium 8.6 8.0 L (8.5-10.1) mg/dL Magnesium 1.6 L (1.8-2.4) mg/dL 06/12/18 Range/Units 06:05 WBC 3.42 L (4.0-11.0) K/uL RBC 3.99 L (4.30-5.90) M/uL Hgb 10.5 L (12.0-16.0) g/dL Hct 32.4 L (36.0-46.0) % MCV 81.2 (80.0-98.0) fL MCH 26.3 L (27.0-32.0) pg MCHC 32.4 (31.0-37.0) g/dL RDW Std Deviation 47.7 (28.0-62.0) fl RDW Coeff of Madelyn 16 H (11.0-15.0) % Plt Count 185 (150-400) K/uL MPV 11.90 (7.40-12.00) fL Neut % (Auto) 45.9 L (48.0-80.0) % Lymph % (Auto) 40.6 H (16.0-40.0) % Blount % (Auto) 12.9 (0.0-15.0) % Eos % (Auto) 0.3 (0.0-7.0) % Baso % (Auto) 0.3 (0.0-1.5) % Neut # (Auto) 1.6 (1.4-5.7) K/uL Lymph # (Auto) 1.4 (0.6-2.4) K/uL Blount # (Auto) 0.4 (0.0-0.8) K/uL Eos # (Auto) 0.0 (0.0-0.7) K/uL Baso # (Auto) 0.0 (0.0-0.1) K/uL Nucleated RBC % 0.0 /100WBC Nucleated RBCs # 0 K/uL Sodium (136-145) mmol/L Potassium (3.5-5.1) mmol/L Chloride (98-107) mmol/L Carbon Dioxide (21.0-32.0) mmol/L BUN (7.0-18.0) mg/dL Creatinine (0.6-1.0) mg/dL Est Cr Clr Drug Dosing mL/min Estimated GFR (MDRD) ml/min Glucose (74-106) mg/dL Calcium (8.5-10.1) mg/dL Magnesium (1.8-2.4) mg/dL [place] Results Last 24 Hours: Microbiology 06/10/18 17:22 Urine Culture - Final Urine, Clean Catch MIXED AYAAN >100,000 CFU/ML Med Orders - Current: Current Medications Acetaminophen (Tylenol) 650 mg PO Q4H PRN PRN Reason: Pain (mild 1-3) Enoxaparin Sodium (Lovenox) 40 mg SUBCUT Q24H REUBEN Last Admin: 06/12/18 06:50 Dose: 40 mg Potassium Chloride 40 meq/ (Dextrose/Water) 1,020 mls @ 100 mls/hr IV Q10H [facility] Magnesium Sulfate 2 gm/ Premix 50 mls @ 50 mls/hr IV ONETIME ONE Stop: 06/12/18 10:02 Oxycodone HCl (Oxycodone) 5 mg PO Q4H PRN PRN Reason: Pain (moderate 4-6) Promethazine HCl (Phenergan) 25 mg IM Q6H PRN PRN Reason: Nausea Last Admin: 06/12/18 09:07 Dose: 25 mg Temazepam (Restoril) 15 mg PO BEDTIME PRN PRN Reason: Sleep Venlafaxine HCl (Effexor Xr) 150 mg PO DAILY [facility] Last Admin: 06/12/18 09:06 Dose: Not Given Discontinued Medications Sodium Chloride (Normal Saline) 1,000 mls @ 999 mls/hr IV STAT ONE Stop: 06/10/18 16:45 Last Admin: 06/10/18 16:18 Dose: 999 mls/hr Potassium Chloride 40 meq/ (Premix) 100 mls @ 25 mls/hr IV ONETIME ONE Stop: 06/10/18 21:30 Last Admin: 06/10/18 18:16 Dose: 25 mls/hr Ceftriaxone Sodium 1 gm/ (Sodium Chloride) 50 mls @ 100 mls/hr IV ONETIME ONE Stop: 06/10/18 22:29 Last Admin: 06/11/18 00:11 Dose: Not Given Potassium Chloride/Sodium Chloride (Normal Saline With 40 Meq Kcl) 1,000 mls @ 100 mls/hr IV ASDIRECTED [facility] Last Admin: 06/10/18 22:29 Dose: 100 mls/hr Ceftriaxone Sodium/Dextrose (Rocephin In Dextrose,Iso-Osm 1 Gm/50 Ml) 50 mls @ 50 mls/hr IV ONETIME ONE Stop: 06/10/18 23:29 Last Admin: 06/10/18 22:30 Dose: 50 mls/hr Sodium Chloride (Normal Saline) 1,000 mls @ 75 mls/hr IV ASDIRECTED [facility] Last Admin: 06/11/18 09:35 Dose: 75 mls/hr Potassium Chloride/Sodium Chloride (Normal Saline With 20 Meq Kcl) 1,000 mls @ 125 mls/hr IV ASDIRECTED [facility] Last Admin: 06/12/18 08:09 Dose: 125 mls/hr Iopamidol (Isovue Multipack-370 (76%)) 100 ml IVPUSH ONETIME STA Stop: 06/10/18 19:30 Last Admin: 06/10/18 19:33 Dose: 100 ml Ketorolac Tromethamine (Toradol) 30 mg IVPUSH ONETIME ONE Stop: 06/10/18 15:46 Last Admin: 06/10/18 16:19 Dose: Not Given Ondansetron HCl (Zofran) 4 mg IVPUSH ONETIME ONE Stop: 06/10/18 15:46 Last Admin: 06/10/18 16:19 Dose: 4 mg Ondansetron HCl (Zofran) 4 mg IVPUSH Q4H PRN PRN Reason: Nausea/Vomiting Last Admin: 06/11/18 09:51 Dose: 4 mg Promethazine HCl (Phenergan) 25 mg PO Q4H PRN PRN Reason: Nausea/Vomiting Last Admin: 06/11/18 15:23 Dose: 25 mg - Exam General: Alert, Oriented, Cooperative Neck: Supple Lungs: Clear to Auscultation, Normal Respiratory Effort Cardiovascular: Regular Rate, Regular Rhythm GI/Abdominal Exam: Normal Bowel Sounds, Soft, Non-Tender Extremities: Normal Inspection, Normal Range of Motion, Non-Tender, No Pedal Edema Wound/Incisions: Healing Well Neurological: No New Focal Deficit Psy/Mental Status: Alert, Normal Affect, Normal Mood - Problem List & Annotations (1) Hypernatremia SNOMED Code(s): 200997070 Code(s): E87.0 - HYPEROSMOLALITY AND HYPERNATREMIA Status: Acute Current Visit: Yes (2) Hypomagnesemia SNOMED Code(s): 509870321 Code(s): E83.42 - HYPOMAGNESEMIA Status: Acute Current Visit: Yes (3) Dehydration SNOMED Code(s): 01542726 Code(s): E86.0 - DEHYDRATION Status: Acute Current Visit: Yes (4) Hypokalemia SNOMED Code(s): 60293337 Code(s): E87.6 - HYPOKALEMIA Status: Acute Current Visit: Yes (5) History of gastric bypass SNOMED Code(s): 081277028 Code(s): Z98.84 - BARIATRIC SURGERY STATUS Status: Acute Current Visit: Yes (6) Nausea & vomiting SNOMED Code(s): 59058078 Code(s): R11.2 - NAUSEA WITH VOMITING, UNSPECIFIED Status: Acute Priority : High Current Visit: Yes Qualifiers: Vomiting type: bilious vomiting Qualified Code(s): R11.14 - Bilious vomiting (7) UTI (urinary tract infection) SNOMED Code(s): 21348190 Code(s): N39.0 - URINARY TRACT INFECTION, SITE NOT SPECIFIED Status: Acute Priority: High Current Visit: Yes Qualifiers: Urinary tract infection type: acute cystitis Hematuria presence: without hematuria Qualified Code(s): N30.00 - Acute cystitis without hematuria - Problem List Review Problem List Initiated/Reviewed/Updated: Yes - My Orders Last 24 Hours: My Active Orders 06/12/18 08:30 Potassium Chloride 40 meq Dextrose 5% in Water 1,000 ml IV Q10H 06/12/18 09:03 Magnesium Sulfate/Water [Magnesium Sulfate 2 GM in Water 50 ML] 2 gm Premix Bag 1 bag IV ONETIME 06/12/18 13:00 BMP [BASIC METABOLIC PANEL,BMP] [CHEM] Routine - Plan Plan:: This 32 year old female admitted with N/V dehydration 7 weeks s/p gastric bypass 1. Nausea/vomiting: Continues. Phenergan helps with nausea. Taking some clear liquids in. Attempted to Call Dr Crews, bariatric surgeon, spoke with her nurse who was in contact with Dr Crews and her PA. They recommended upper GI series to further evaluate. They felt if this was normal, then she could be advance to regular diet and may be more solid foods will help settle her stomach. They also recommended placing Scopolamine patch. She reports that Radha had donated blood a couple weeks ago and they felt that may have caused her to start feeling poorly. Continue IVFs 2. Electrolyte abnormalities: Replacing Potassium and Magnesium. Will change IVFs to D5W due to hypernatremia and hyperchloremia. VTE prophylaxis: SCDs Dispo: 1-2 days pending improvement. <Roosevelt Blackman - Last Filed: 06/12/18 16:38> - General Info Admission Dx/Problem (Free Text): I have seen and examined the patient independently of Steff Wood CNP. I have discussed the case with her. I have reviewed and agreed with the plan of treatment as outlined for this patient by her. Please see orders. GI series completed. - Patient Data Vitals - Most Recent: Last Vital Signs Temp 37.2 C 06/12/18 11:00 Pulse 65 06/12/18 11:00 Resp 18 06/12/18 11:00 BP 109/57 L 06/12/18 11:00 Pulse Ox 100 06/12/18 11:00 I&O - Last 24 Hours: Intake & Output 06/12/18 06/12/18 06/12/18 06:59 14:59 22:59 Intake Total 1992 100 Output Total 450 Balance 1542 100 Lab Results Last 24 Hours: Laboratory Results - last 24 hr 06/12/18 06/12/18 06/12/18 Range/Units 05:11 05:11 06:05 WBC 3.42 L (4.0-11.0) K/uL RBC 3.99 L (4.30-5.90) M/uL Hgb 10.5 L (12.0-16.0) g/dL Hct 32.4 L (36.0-46.0) % MCV 81.2 (80.0-98.0) fL MCH 26.3 L (27.0-32.0) pg MCHC 32.4 (31.0-37.0) g/dL RDW Std Deviation 47.7 (28.0-62.0) fl RDW Coeff of Madelyn 16 H (11.0-15.0) % Plt Count 185 (150-400) K/uL MPV 11.90 (7.40-12.00) fL Neut % (Auto) 45.9 L (48.0-80.0) % Lymph % (Auto) 40.6 H (16.0-40.0) % Blount % (Auto) 12.9 (0.0-15.0) % Eos % (Auto) 0.3 (0.0-7.0) % Baso % (Auto) 0.3 (0.0-1.5) % Neut # (Auto) 1.6 (1.4-5.7) K/uL Lymph # (Auto) 1.4 (0.6-2.4) K/uL Blount # (Auto) 0.4 (0.0-0.8) K/uL Eos # (Auto) 0.0 (0.0-0.7) K/uL Baso # (Auto) 0.0 (0.0-0.1) K/uL Nucleated RBC % 0.0 /100WBC Nucleated RBCs # 0 K/uL Sodium 149 H (136-145) mmol/L Potassium 3.3 L (3.5-5.1) mmol/L Chloride 114 H (98-107) mmol/L Carbon Dioxide 19.0 L (21.0-32.0) mmol/L BUN 1 L (7.0-18.0) mg/dL Creatinine 0.6 (0.6-1.0) mg/dL Est Cr Clr Drug Dosing 118.39 mL/min Estimated GFR (MDRD) > 60.0 ml/min Glucose 71 L (74-106) mg/dL Calcium 8.0 L (8.5-10.1) mg/dL Magnesium 1.6 L (1.8-2.4) mg/dL 06/12/18 Range/Units 13:32 WBC (4.0-11.0) K/uL RBC (4.30-5.90) M/uL Hgb (12.0-16.0) g/dL Hct (36.0-46.0) % MCV (80.0-98.0) fL MCH (27.0-32.0) pg MCHC (31.0-37.0) g/dL RDW Std Deviation (28.0-62.0) fl RDW Coeff of Madelyn (11.0-15.0) % Plt Count (150-400) K/uL MPV (7.40-12.00) fL Neut % (Auto) (48.0-80.0) % Lymph % (Auto) (16.0-40.0) % Blount % (Auto) (0.0-15.0) % Eos % (Auto) (0.0-7.0) % Baso % (Auto) (0.0-1.5) % Neut # (Auto) (1.4-5.7) K/uL Lymph # (Auto) (0.6-2.4) K/uL Blount # (Auto) (0.0-0.8) K/uL Eos # (Auto) (0.0-0.7) K/uL Baso # (Auto) (0.0-0.1) K/uL Nucleated RBC % /100WBC Nucleated RBCs # K/uL Sodium 144 (136-145) mmol/L Potassium 3.6 (3.5-5.1) mmol/L Chloride 109 H (98-107) mmol/L Carbon Dioxide 21.6 (21.0-32.0) mmol/L BUN 1 L (7.0-18.0) mg/dL Creatinine 0.6 (0.6-1.0) mg/dL Est Cr Clr Drug Dosing 118.39 mL/min Estimated GFR (MDRD) > 60.0 ml/min Glucose 96 (74-106) mg/dL Calcium 8.0 L (8.5-10.1) mg/dL Magnesium (1.8-2.4) mg/dL [place] Results Last 24 Hours: Microbiology 06/10/18 17:22 Urine Culture - Final Urine, Clean Catch MIXED AYAAN >100,000 CFU/ML Med Orders - Current: Current Medications Acetaminophen (Tylenol) 650 mg PO Q4H PRN PRN Reason: Pain (mild 1-3) Enoxaparin Sodium (Lovenox) 40 mg SUBCUT Q24H [facility] Last Admin: 06/12/18 06:50 Dose: 40 mg Potassium Chloride 40 meq/ (Dextrose/Water) 1,020 mls @ 100 mls/hr IV Q10H [facility] Last Admin: 06/12/18 09:31 Dose: 100 mls/hr Ceftriaxone Sodium/Dextrose 1 (gm/ Premix) 50 mls @ 100 mls/hr IV Q24H [facility] Last Admin: 06/12/18 12:48 Dose: 100 mls/hr Oxycodone HCl (Oxycodone) 5 mg PO Q4H PRN PRN Reason: Pain (moderate 4-6) Promethazine HCl (Phenergan) 25 mg IM Q6H PRN PRN Reason: Nausea Last Admin: 06/12/18 09:07 Dose: 25 mg Scopolamine (Transderm-Scop) 1.5 mg TRDERM Q72H [facility] Last Admin: 06/12/18 12:49 Dose: 1.5 mg Temazepam (Restoril) 15 mg PO BEDTIME PRN PRN Reason: Sleep Venlafaxine HCl (Effexor Xr) 150 mg PO DAILY [facility] Last Admin: 06/12/18 09:06 Dose: Not Given Discontinued Medications Sodium Chloride (Normal Saline) 1,000 mls @ 999 mls/hr IV STAT ONE Stop: 06/10/18 16:45 Last Admin: 06/10/18 16:18 Dose: 999 mls/hr Potassium Chloride 40 meq/ (Premix) 100 mls @ 25 mls/hr IV ONETIME ONE Stop: 06/10/18 21:30 Last Admin: 06/10/18 18:16 Dose: 25 mls/hr Ceftriaxone Sodium 1 gm/ (Sodium Chloride) 50 mls @ 100 mls/hr IV ONETIME ONE Stop: 06/10/18 22:29 Last Admin: 06/11/18 00:11 Dose: Not Given Potassium Chloride/Sodium Chloride (Normal Saline With 40 Meq Kcl) 1,000 mls @ 100 mls/hr IV ASDIRECTED [facility] Last Admin: 06/10/18 22:29 Dose: 100 mls/hr Ceftriaxone Sodium/Dextrose (Rocephin In Dextrose,Iso-Osm 1 Gm/50 Ml) 50 mls @ 50 mls/hr IV ONETIME ONE Stop: 06/10/18 23:29 Last Admin: 06/10/18 22:30 Dose: 50 mls/hr Sodium Chloride (Normal Saline) 1,000 mls @ 75 mls/hr IV ASDIRECTED [facility] Last Admin: 06/11/18 09:35 Dose: 75 mls/hr Potassium Chloride/Sodium Chloride (Normal Saline With 20 Meq Kcl) 1,000 mls @ 125 mls/hr IV ASDIRECTED [facility] Last Admin: 06/12/18 08:09 Dose: 125 mls/hr Magnesium Sulfate 2 gm/ Premix 50 mls @ 50 mls/hr IV ONETIME ONE Stop: 06/12/18 10:02 Last Admin: 06/12/18 10:08 Dose: 50 mls/hr Iopamidol (Isovue Multipack-370 (76%)) 100 ml IVPUSH ONETIME STA Stop: 06/10/18 19:30 Last Admin: 06/10/18 19:33 Dose: 100 ml Ketorolac Tromethamine (Toradol) 30 mg IVPUSH ONETIME ONE Stop: 06/10/18 15:46 Last Admin: 06/10/18 16:19 Dose: Not Given Ondansetron HCl (Zofran) 4 mg IVPUSH ONETIME ONE Stop: 06/10/18 15:46 Last Admin: 06/10/18 16:19 Dose: 4 mg Ondansetron HCl (Zofran) 4 mg IVPUSH Q4H PRN PRN Reason: Nausea/Vomiting Last Admin: 06/11/18 09:51 Dose: 4 mg Promethazine HCl (Phenergan) 25 mg PO Q4H PRN PRN Reason: Nausea/Vomiting Last Admin: 06/11/18 15:23 Dose: 25 mg - Problem List & Annotations (1) Acute hypokalemia SNOMED Code(s): 00626341 Code(s): E87.6 - HYPOKALEMIA Status: Resolved Priority: High Current Visit: Yes (2) UTI (urinary tract infection) SNOMED Code(s): 47787594 Code(s): N39.0 - URINARY TRACT INFECTION, SITE NOT SPECIFIED Status: Acute Priority: High Current Visit: Yes Qualifiers: Urinary tract infection type: acute cystitis Hematuria presence: without hematuria Qualified Code(s): N30.00 - Acute cystitis without hematuria (3) Dehydration SNOMED Code(s): 65280685 Code(s): E86.0 - DEHYDRATION Status: Resolved Priority: High Current Visit: Yes (4) Nausea & vomiting SNOMED Code(s): 73137856 Code(s): R11.2 - NAUSEA WITH VOMITING, UNSPECIFIED Status: Acute Priority : High Current Visit: Yes Qualifiers: Vomiting type: bilious vomiting Qualified Code(s): R11.14 - Bilious vomiting (5) Status post gastric bypass for obesity SNOMED Code(s): 214596341, 089908774, 338032361, 664149226 Code(s): Z98.84 - BARIATRIC SURGERY STATUS Status: Chronic Priority: High Current Visit: Yes Annotation/Comment:: 7 weeks post (6) Obesity (BMI 30.0-34.9) SNOMED Code(s): 251584936090565 Code(s): E66.9 - OBESITY, UNSPECIFIED Status: Chronic Priority: High Current Visit: Yes - My Orders Last 24 Hours: My Active Orders 06/11/18 16:35 Promethazine [Phenergan] 25 mg IM Q6H PRN
[2018-06-12] MEDS: Potassium Chloride 40 MEQ in Dextrose 5% in Water 1,000 ML IV SCH ×4 (09:31→21:08)
[2018-06-12] MEDS ORDERED: Scopolamine 1.5 MG Transdermal Patch TRDERM SCH (11:45)
[2018-06-12] MEDS: cefTRIAXone 1 GM in Premix Bag 1 BAG IV SCH (12:48)
[2018-06-12 13:59] LABS: CHLORIDE,CL 109 mmol/L (98-107); SODIUM,NA 144 mmol/L (136-145)
--- NOTE | 2018-06-12 16:17 | CR ---
EXAMINATION: Single contrast upper GI HISTORY: Gastric bypass, nausea and vomiting COMPARISON: CT dated 06/10/2018 TECHNIQUE: Upright contrast upper GI was performed. FINDINGS: The patient swallowed barium without difficulty. The esophagus is normal in caliber. No filling defect or ulceration. Motility is normal. Changes are noted secondary to gastric bypass. The gastric pouch appears normal in size. The gastric ileal anastomosis is normal in caliber without evidence of obstruction. The ileal motility appeared relatively slow however no obstruction was noted. IMPRESSION: 1. Expected changes secondary to gastric bypass otherwise unremarkable.
[2018-06-12] MEDS ORDERED: Sodium Chloride 0.45% 1,000 ML IV SCH (20:45)
[2018-06-13 06:23] LABS: CHLORIDE,CL 107 mmol/L (98-107); SODIUM,NA 142 mmol/L (136-145)
[2018-06-13] MEDS: Enoxaparin 40 MG/0.4 ML Syringe SUBCUT SCH (06:40)
[2018-06-13] MEDS ORDERED: Magnesium Sulfate/Water 2 GM in Premix Bag 1 BAG IV ONE (07:22)
[2018-06-13] MEDS ORDERED: Dextrose 5%-0.225% NaCl w/KCl 1,000 ML IV SCH (07:30)
[2018-06-13] MEDS ORDERED: Potassium Chloride 20 MEQ Tab.ER PO ONE (08:12)
[2018-06-13] MEDS: Venlafaxine 75 MG Cap.ER PO SCH (09:01)
[2018-06-13] MEDS ORDERED: Potassium Chloride 10 MEQ Tab.ER PO ONE (09:20)
[2018-06-13] MEDS ORDERED: Potassium Chloride 40 MEQ in Sodium Chloride 0.9% 500 ML IV SCH (10:45)
[2018-06-13] MEDS: cefTRIAXone 1 GM in Premix Bag 1 BAG IV SCH (11:54)
[2018-06-13 14:42] LABS: CHLORIDE,CL 107 mmol/L (98-107); SODIUM,NA 142 mmol/L (136-145)
--- NOTE | 2018-06-13 15:53 | PCM.DCSUM1 ---
<Steff Wood M - Last Filed: 06/13/18 19:19> Discharge Summary - Hospital Course Brief History: The patient is a 32-year-old lady who had presented to the emergency department with a complaint of nausea and vomiting. The patient is 7 weeks postop gastric bypass which was completed in [facility]. The patient says that she has had nausea and has been unable to keep fluids down for the past several days. She also has not been able to keep her vitamins and supplements down as well. In the emergency department the patient was noted to have severe hypokalemia. Surgery had been consulted in regards to possibility of this being a surgical issue with regards to her nausea and vomiting. She was admitted to observation for correction of the hypokalemia. The patient has had some mild abdominal pain but she has no specific aggravating or relieving factors. Diagnosis: Stroke: No - Discharge Data Discharge Date: 06/13/18 Discharge Disposition: Home, Self-Care 01 Condition: Good - Discharge Diagnosis/Problem(s) (1) Hypernatremia SNOMED Code(s): 233124643 ICD Code: E87.0 - HYPEROSMOLALITY AND HYPERNATREMIA Status: Acute (2) Hypomagnesemia SNOMED Code(s): 784961229 ICD Code: E83.42 - HYPOMAGNESEMIA Status: Acute (3) Dehydration SNOMED Code(s): 68607867 ICD Code: E86.0 - DEHYDRATION Status: Acute (4) Hypokalemia SNOMED Code(s): 61365083 ICD Code: E87.6 - HYPOKALEMIA Status: Acute (5) History of gastric bypass SNOMED Code(s): 096773024 ICD Code: Z98.84 - BARIATRIC SURGERY STATUS Status: Acute (6) Nausea & vomiting SNOMED Code(s): 21303572 ICD Code: R11.2 - NAUSEA WITH VOMITING, UNSPECIFIED Status: Acute Priority: High Qualifiers: Vomiting type: bilious vomiting Qualified Code(s): R11.14 - Bilious vomiting (7) UTI (urinary tract infection) SNOMED Code(s): 90004785 ICD Code: N39.0 - URINARY TRACT INFECTION, SITE NOT SPECIFIED Status: Acute Priority: High Qualifiers: Urinary tract infection type: acute cystitis Hematuria presence: without hematuria Qualified Code(s): N30.00 - Acute cystitis without hematuria - Patient Summary/Data Consults: Consultations 06/10/18 20:45 Consult to Physician [CONS] Stat - Patient Instructions Diet: Usual Diet as Tolerated Activity: As Tolerated Showering/Bathing: May Shower Notify Provider of: Fever, Increased Pain, Swelling and Redness, Nausea and/or Vomiting - Discharge Plan *PRESCRIPTION DRUG MONITORING PROGRAM REVIEWED*: No *COPY OF PRESCRIPTION DRUG MONITORING REPORT IN PATIENT AUTUMN: No Prescriptions/Med Rec: Ciprofloxacin HCl 500 mg PO BID #10 tablet Ondansetron [Zofran ODT] 4 mg PO Q6H PRN #12 tab.dis PRN Reason: Nausea/Vomiting Home Medications: Home Meds Scopolamine [Transderm-Scop] 1 mg EP 06/10/18 [History] Venlafaxine HCl [Venlafaxine ER] 150 mg PO DAILY 06/10/18 [History] Ciprofloxacin HCl 500 mg PO BID #10 tablet 06/11/18 [Rx] Ondansetron [Zofran ODT] 4 mg PO Q6H PRN #12 tab.dis 06/11/18 [Rx] Oxygen Therapy Mode: Room Air Patient Handouts: Hypernatremia, [place], Ondansetron tablets, Hypomagnesemia, Dehydration, Adult, Fben-ye-Hblf, Urinary Tract Infection, Adult , Ciprofloxacin tablets Referrals: Alice Rico MD [Physician] - 06/22/18 10:00 am - Discharge Summary/Plan Comment DC Time >30 min.: No Discharge Summary/Plan Comment: Discharge Diagnoses: Electrolyte abnormalities- corrected Nausea/Vomiting S/P gastric bypass Radha was admitted due to hypokalemia, nausea and vomiting. She was treated with IVFs and replacement of her electrolytes including potassium and magnesium. Today she is feeling better, continues to have some nausea, but it is tolerable with Scopolamine patch. I spoke with Dr Saavedra nurse yesterday, who relayed information to Dr Crews in surgery. She recommended upper GI series , this was obtained and was negative. She recommended then Scopolamine patch and to have patient continue phenergan gel she was given at outpatient follow up. They are aware of her nausea and feel this is related to her donating blood a couple weeks ago and so close to operation. They recommended regular diet. Radha feels comfortable going home today and would much rather be there. Potassium normalized as well as magnesium. She was encouraged to follow up with PCP and with Dr Crews as previously scheduled. If she continues to have concerns return to the ED and or be in contact closely with Dr Crews's office. - General Info Date of Service: 06/13/18 Admission Dx/Problem (Free Text: Nausea Subjective Update: Doing well today, no extra Phenergan needed. Feels good going home and wanting to leave. Nausea lingers but it is intermittent. Did not throw up today and did eat some breakfast. continues to pass gas. Functional Status: Reports: Tolerating Diet, Ambulating, Urinating - Review of Systems General: Reports: No Symptoms. Denies: Fever, Weakness, Fatigue HEENT: Reports: No Symptoms. Denies: Sinus Congestion Pulmonary: Reports: No Symptoms. Denies: Shortness of Breath Cardiovascular: Reports: No Symptoms. Denies: Chest Pain Gastrointestinal: Reports: Flatus, Nausea. Denies: Abdominal Pain, Vomiting Genitourinary: Reports: No Symptoms. Denies: Dysuria, Frequency, Burning Neurological: Reports: No Symptoms Psychiatric: Reports: No Symptoms - Patient Data Vitals - Most Recent: Last Vital Signs Temp 98.1 F 06/13/18 11:40 Pulse 57 L 06/13/18 11:40 Resp 13 06/13/18 11:40 BP 95/55 L 06/13/18 11:40 Pulse Ox 94 L 06/13/18 11:40 Weight - Most Recent: 86.636 kg I&O - Last 24 hours: Intake & Output 06/13/18 06/13/18 06/13/18 06:59 14:59 22:59 Intake Total 1110 50 Output Total 250 Balance 860 50 Lab Results - Last 24 hrs: Laboratory Results - last 24 hr 06/13/18 06/13/18 06/13/18 Range/Units 05:45 05:45 14:08 WBC 3.54 L (4.0-11.0) K/uL RBC 4.16 L (4.30-5.90) M/uL Hgb 10.9 L (12.0-16.0) g/dL Hct 33.6 L (36.0-46.0) % MCV 80.8 (80.0-98.0) fL MCH 26.2 L (27.0-32.0) pg MCHC 32.4 (31.0-37.0) g/dL RDW Std Deviation 46.2 (28.0-62.0) fl RDW Coeff of Madelyn 16 H (11.0-15.0) % Plt Count 174 (150-400) K/uL MPV 11.60 (7.40-12.00) fL Neut % (Auto) 44.1 L (48.0-80.0) % Lymph % (Auto) 44.6 H (16.0-40.0) % [place] % (Auto) 11.0 (0.0-15.0) % Eos % (Auto) 0.3 (0.0-7.0) % Baso % (Auto) 0.0 (0.0-1.5) % Neut # (Auto) 1.6 (1.4-5.7) K/uL Lymph # (Auto) 1.6 (0.6-2.4) K/uL [place] # (Auto) 0.4 (0.0-0.8) K/uL Eos # (Auto) 0.0 (0.0-0.7) K/uL Baso # (Auto) 0.0 (0.0-0.1) K/uL Nucleated RBC % 0.0 /100WBC Nucleated RBCs # 0 K/uL Sodium 142 142 (136-145) mmol/L Potassium 3.1 L 4.0 (3.5-5.1) mmol/L Chloride 107 107 (98-107) mmol/L Carbon Dioxide 23.7 23.2 (21.0-32.0) mmol/L BUN 1 L 1 L (7.0-18.0) mg/dL Creatinine 0.5 L 0.5 L (0.6-1.0) mg/dL Est Cr Clr Drug Dosing 142.07 142.07 mL/min Estimated GFR (MDRD) > 60.0 > 60.0 ml/min Glucose 82 93 (74-106) mg/dL Calcium 8.2 L 8.5 (8.5-10.1) mg/dL Magnesium 1.7 L (1.8-2.4) mg/dL Med Orders - Current: Current Medications Acetaminophen (Tylenol) 650 mg PO Q4H PRN PRN Reason: Pain (mild 1-3) Enoxaparin Sodium (Lovenox) 40 mg SUBCUT Q24H [facility] Last Admin: 06/13/18 06:40 Dose: 40 mg Ceftriaxone Sodium/Dextrose 1 (gm/ Premix) 50 mls @ 100 mls/hr IV Q24H [facility] Last Admin: 06/13/18 11:54 Dose: 100 mls/hr Sodium Chloride (Sodium Chloride 0.45%) 1,000 mls @ 100 mls/hr IV ASDIRECTED [facility] Last Admin: 06/12/18 20:54 Dose: 100 mls/hr Oxycodone HCl (Oxycodone) 5 mg PO Q4H PRN PRN Reason: Pain (moderate 4-6) Promethazine HCl (Phenergan) 25 mg IM Q6H PRN PRN Reason: Nausea Last Admin: 06/12/18 09:07 Dose: 25 mg Scopolamine (Transderm-Scop) 1.5 mg TRDERM Q72H [facility] Last Admin: 06/12/18 12:49 Dose: 1.5 mg Temazepam (Restoril) 15 mg PO BEDTIME PRN PRN Reason: Sleep Venlafaxine HCl (Effexor Xr) 150 mg PO DAILY [facility] Last Admin: 06/13/18 09:01 Dose: 150 mg Discontinued Medications Sodium Chloride (Normal Saline) 1,000 mls @ 999 mls/hr IV STAT ONE Stop: 06/10/18 16:45 Last Admin: 06/10/18 16:18 Dose: 999 mls/hr Potassium Chloride 40 meq/ (Premix) 100 mls @ 25 mls/hr IV ONETIME ONE Stop: 06/10/18 21:30 Last Admin: 06/10/18 18:16 Dose: 25 mls/hr Ceftriaxone Sodium 1 gm/ (Sodium Chloride) 50 mls @ 100 mls/hr IV ONETIME ONE Stop: 06/10/18 22:29 Last Admin: 06/11/18 00:11 Dose: Not Given Potassium Chloride/Sodium Chloride (Normal Saline With 40 Meq Kcl) 1,000 mls @ 100 mls/hr IV ASDIRECTED [facility] Last Admin: 06/10/18 22:29 Dose: 100 mls/hr Ceftriaxone Sodium/Dextrose (Rocephin In Dextrose,Iso-Osm 1 Gm/50 Ml) 50 mls @ 50 mls/hr IV ONETIME ONE Stop: 06/10/18 23:29 Last Admin: 06/10/18 22:30 Dose: 50 mls/hr Sodium Chloride (Normal Saline) 1,000 mls @ 75 mls/hr IV ASDIRECTED [facility] Last Admin: 06/11/18 09:35 Dose: 75 mls/hr Potassium Chloride/Sodium Chloride (Normal Saline With 20 Meq Kcl) 1,000 mls @ 125 mls/hr IV ASDIRECTED [facility] Last Admin: 06/12/18 08:09 Dose: 125 mls/hr Potassium Chloride 40 meq/ (Dextrose/Water) 1,020 mls @ 100 mls/hr IV Q10H [facility] Last Admin: 06/12/18 21:08 Dose: Not Given Magnesium Sulfate 2 gm/ Premix 50 mls @ 50 mls/hr IV ONETIME ONE Stop: 06/12/18 10:02 Last Admin: 06/12/18 10:08 Dose: 50 mls/hr Potassium Chloride/Dextrose/Sod Cl (D5 1/4 Ns With 20 Meq Kcl) 1,000 mls @ 100 mls/hr IV ASDIRECTED [facility] Magnesium Sulfate 2 gm/ Premix 50 mls @ 50 mls/hr IV ONETIME ONE Stop: 06/13/18 08:21 Last Admin: 06/13/18 09:06 Dose: 50 mls/hr Potassium Chloride 40 meq/ (Sodium Chloride) 520 mls @ 125 mls/hr IV .BOLUS [facility] Last Admin: 06/13/18 10:52 Dose: 125 mls/hr Iopamidol (Isovue Multipack-370 (76%)) 100 ml IVPUSH ONETIME STA Stop: 06/10/18 19:30 Last Admin: 06/10/18 19:33 Dose: 100 ml Ketorolac Tromethamine (Toradol) 30 mg IVPUSH ONETIME ONE Stop: 06/10/18 15:46 Last Admin: 06/10/18 16:19 Dose: Not Given Ondansetron HCl (Zofran) 4 mg IVPUSH ONETIME ONE Stop: 06/10/18 15:46 Last Admin: 06/10/18 16:19 Dose: 4 mg Ondansetron HCl (Zofran) 4 mg IVPUSH Q4H PRN PRN Reason: Nausea/Vomiting Last Admin: 06/11/18 09:51 Dose: 4 mg Potassium Chloride (Klor-Con M20) 40 meq PO ONETIME ONE Stop: 06/13/18 08:13 Last Admin: 06/13/18 09:28 Dose: Not Given Potassium Chloride (Klor-Con 10) 40 meq PO ONETIME ONE Stop: 06/13/18 09:21 Last Admin: 06/13/18 09:38 Dose: 40 meq Promethazine HCl (Phenergan) 25 mg PO Q4H PRN PRN Reason: Nausea/Vomiting Last Admin: 06/11/18 15:23 Dose: 25 mg - Exam General: Reports: Alert, Oriented, Cooperative Lungs: Reports: Clear to Auscultation, Normal Respiratory Effort Cardiovascular: Reports: Regular Rate, Regular Rhythm GI/Abdominal Exam: Normal Bowel Sounds, Soft, Non-Tender Back Exam: Reports: Normal Inspection, Full Range of Motion Extremities: Normal Inspection, Normal Range of Motion, Non-Tender Neurological: Reports: No New Focal Deficit Psy/Mental Status: Reports: Alert, Normal Affect, Normal Mood <Hiral,Roosevelt Merida - Last Filed: 06/14/18 08:01> Discharge Summary - Hospital Course Free Text/Narrative:: I have seen and examined the patient independently of Steff Wood CNP. I have discussed the case with her. I have reviewed and agreed with the plan of treatment as outlined for this patient by her. Please see orders. GI series completed. - Discharge Diagnosis/Problem(s) (1) Acute hypokalemia SNOMED Code(s): 49024626 ICD Code: E87.6 - HYPOKALEMIA Status: Resolved Priority: High (2) UTI (urinary tract infection) SNOMED Code(s): 96702429 ICD Code: N39.0 - URINARY TRACT INFECTION, SITE NOT SPECIFIED Status: Acute Priority: High Qualifiers: Urinary tract infection type: acute cystitis Hematuria presence: without hematuria Qualified Code(s): N30.00 - Acute cystitis without hematuria (3) Dehydration SNOMED Code(s): 71906878 ICD Code: E86.0 - DEHYDRATION Status: Resolved Priority: High (4) Nausea & vomiting SNOMED Code(s): 22581458 ICD Code: R11.2 - NAUSEA WITH VOMITING, UNSPECIFIED Status: Acute Priority: High Qualifiers: Vomiting type: bilious vomiting Qualified Code(s): R11.14 - Bilious vomiting (5) Status post gastric bypass for obesity SNOMED Code(s): 576367976, 586991139, 238742954, 376287816 ICD Code: Z98.84 - BARIATRIC SURGERY STATUS Status: Chronic Priority: High Problem Details: 7 weeks post (6) Obesity (BMI 30.0-34.9) SNOMED Code(s): 563543951711926 ICD Code: E66.9 - OBESITY, UNSPECIFIED Status: Chronic Priority: High - Patient Summary/Data Consults: Consultations 06/10/18 20:45 Consult to Physician [CONS] Stat - Patient Data Vitals - Most Recent: Last Vital Signs Temp 36.7 C 06/13/18 16:00 Pulse 72 06/13/18 16:00 Resp 16 06/13/18 16:00 BP 107/64 06/13/18 16:00 Pulse Ox 99 06/13/18 16:00 I&O - Last 24 hours: Intake & Output 06/13/18 06/14/18 06/14/18 22:59 06:59 14:59 Intake Total 940 Output Total 1150 Balance -210 Lab Results - Last 24 hrs: Laboratory Results - last 24 hr 06/13/18 Range/Units 14:08 Sodium 142 (136-145) mmol/L Potassium 4.0 (3.5-5.1) mmol/L Chloride 107 (98-107) mmol/L Carbon Dioxide 23.2 (21.0-32.0) mmol/L BUN 1 L (7.0-18.0) mg/dL Creatinine 0.5 L (0.6-1.0) mg/dL Est Cr Clr Drug Dosing 142.07 mL/min Estimated GFR (MDRD) > 60.0 ml/min Glucose 93 (74-106) mg/dL Calcium 8.5 (8.5-10.1) mg/dL Med Orders - Current: Current Medications Discontinued Medications Acetaminophen (Tylenol) 650 mg PO Q4H PRN PRN Reason: Pain (mild 1-3) Enoxaparin Sodium (Lovenox) 40 mg SUBCUT Q24H [facility] Last Admin: 06/13/18 06:40 Dose: 40 mg Sodium Chloride (Normal Saline) 1,000 mls @ 999 mls/hr IV STAT ONE Stop: 06/10/18 16:45 Last Admin: 06/10/18 16:18 Dose: 999 mls/hr Potassium Chloride 40 meq/ (Premix) 100 mls @ 25 mls/hr IV ONETIME ONE Stop: 06/10/18 21:30 Last Admin: 06/10/18 18:16 Dose: 25 mls/hr Ceftriaxone Sodium 1 gm/ (Sodium Chloride) 50 mls @ 100 mls/hr IV ONETIME ONE Stop: 06/10/18 22:29 Last Admin: 06/11/18 00:11 Dose: Not Given Potassium Chloride/Sodium Chloride (Normal Saline With 40 Meq Kcl) 1,000 mls @ 100 mls/hr IV ASDIRECTED [facility] Last Admin: 06/10/18 22:29 Dose: 100 mls/hr Ceftriaxone Sodium/Dextrose (Rocephin In Dextrose,Iso-Osm 1 Gm/50 Ml) 50 mls @ 50 mls/hr IV ONETIME ONE Stop: 06/10/18 23:29 Last Admin: 06/10/18 22:30 Dose: 50 mls/hr Sodium Chloride (Normal Saline) 1,000 mls @ 75 mls/hr IV ASDIRECTED [facility] Last Admin: 06/11/18 09:35 Dose: 75 mls/hr Potassium Chloride/Sodium Chloride (Normal Saline With 20 Meq Kcl) 1,000 mls @ 125 mls/hr IV ASDIRECTED [facility] Last Admin: 06/12/18 08:09 Dose: 125 mls/hr Potassium Chloride 40 meq/ (Dextrose/Water) 1,020 mls @ 100 mls/hr IV Q10H [facility] Last Admin: 06/12/18 21:08 Dose: Not Given Magnesium Sulfate 2 gm/ Premix 50 mls @ 50 mls/hr IV ONETIME ONE Stop: 06/12/18 10:02 Last Admin: 06/12/18 10:08 Dose: 50 mls/hr Ceftriaxone Sodium/Dextrose 1 (gm/ Premix) 50 mls @ 100 mls/hr IV Q24H [facility] Last Admin: 06/13/18 11:54 Dose: 100 mls/hr Sodium Chloride (Sodium Chloride 0.45%) 1,000 mls @ 100 mls/hr IV ASDIRECTED [facility] Last Admin: 06/12/18 20:54 Dose: 100 mls/hr Potassium Chloride/Dextrose/Sod Cl (D5 1/4 Ns With 20 Meq Kcl) 1,000 mls @ 100 mls/hr IV ASDIRECTED [facility] Magnesium Sulfate 2 gm/ Premix 50 mls @ 50 mls/hr IV ONETIME ONE Stop: 06/13/18 08:21 Last Admin: 06/13/18 09:06 Dose: 50 mls/hr Potassium Chloride 40 meq/ (Sodium Chloride) 520 mls @ 125 mls/hr IV .BOLUS [facility] Last Admin: 06/13/18 10:52 Dose: 125 mls/hr Iopamidol (Isovue Multipack-370 (76%)) 100 ml IVPUSH ONETIME STA Stop: 06/10/18 19:30 Last Admin: 06/10/18 19:33 Dose: 100 ml Ketorolac Tromethamine (Toradol) 30 mg IVPUSH ONETIME ONE Stop: 06/10/18 15:46 Last Admin: 06/10/18 16:19 Dose: Not Given Ondansetron HCl (Zofran) 4 mg IVPUSH ONETIME ONE Stop: 06/10/18 15:46 Last Admin: 06/10/18 16:19 Dose: 4 mg Ondansetron HCl (Zofran) 4 mg IVPUSH Q4H PRN PRN Reason: Nausea/Vomiting Last Admin: 06/11/18 09:51 Dose: 4 mg Oxycodone HCl (Oxycodone) 5 mg PO Q4H PRN PRN Reason: Pain (moderate 4-6) Potassium Chloride (Klor-Con M20) 40 meq PO ONETIME ONE Stop: 06/13/18 08:13 Last Admin: 06/13/18 09:28 Dose: Not Given Potassium Chloride (Klor-Con 10) 40 meq PO ONETIME ONE Stop: 06/13/18 09:21 Last Admin: 06/13/18 09:38 Dose: 40 meq Promethazine HCl (Phenergan) 25 mg PO Q4H PRN PRN Reason: Nausea/Vomiting Last Admin: 06/11/18 15:23 Dose: 25 mg Promethazine HCl (Phenergan) 25 mg IM Q6H PRN PRN Reason: Nausea Last Admin: 06/12/18 09:07 Dose: 25 mg Scopolamine (Transderm-Scop) 1.5 mg TRDERM Q72H [facility] Last Admin: 06/12/18 12:49 Dose: 1.5 mg Temazepam (Restoril) 15 mg PO BEDTIME PRN PRN Reason: Sleep Venlafaxine HCl (Effexor Xr) 150 mg PO DAILY [facility] Last Admin: 06/13/18 09:01 Dose: 150 mg
[2018-06-13 17:11] VITALS: BP 107/64
== END 2018-06-13 17:15 | disposition home or self-care (01) ==
LOC: MW.ED 13:23 → MW.MS 20:43
PROVIDERS: ADMIT Internal Medicine; ATTEND Internal Medicine
DX: E87.6 Hypokalemia (principal); E87.0 Hyperosmolality and hypernatremia; E83.42 Hypomagnesemia; E86.0 Dehydration; N30.00 Acute cystitis without hematuria; E66.9 Obesity, unspecified; Z68.32 Body mass index [BMI] 32.0-32.9, adult; Z98.84 Bariatric surgery status; Z79.899 Other long term (current) drug therapy
CPT/HCPCS: 36415; 74177; 74246; 80048; 80053; 81001; 81025; 83690; 83735; 85025; 87086; 93005; 96361; 96365; 96366; 96367; 96368; 96372; 96375; 96376; 99285; A9270; G0378; J0696; J1650; J2405; J2550; J3475; J3480; J7030; J7040; J7060; Q9967; 99284

== ENCOUNTER 2018-07-24 15:23 | Observation (INO) | payer BC ==
[2018-07-24] MEDS ORDERED: Ondansetron 4 MG/2 ML SDV IVPUSH ONE (15:40)
[2018-07-24] MEDS ORDERED: Sodium Chloride 0.9% 1,000 ML IV ONE (15:40)
--- NOTE | 2018-07-24 16:11 | EDM.PDOC ---
ED HPI GENERAL MEDICAL PROBLEM - General Chief Complaint: Gastrointestinal Problem Stated Complaint: DEHYDRATED Time Seen by Provider: 07/24/18 15:27 Source of Information: Reports: Patient History Limitations: Reports: No Limitations - History of Present Illness INITIAL COMMENTS - FREE TEXT/NARRATIVE: HISTORY AND PHYSICAL: History of present illness: Patient is a 32-year-old female who presents to the ED today with concern for dehydration and nausea. Patient has had gastric bypass done back in March and has had difficulties with eating since his surgery. Patient was seen in the ED on 06/11/18 for similar complaint and was admitted due to dehydration. Patient states that since then she is followed up with her GI specialist on several occasions and has had continuous issues with eating and drinking. Patient states she has a scope scheduled for August 01 in [place]. Patient states the last time she has eaten was on Tuesday and had just a few bites of tomato. Patient states she has not drank much since. Patient states she is starting to feel dizzy and lightheaded which is similar to how she felt last time she was seen in the ED. Denies any abdominal pain. Patient denies fever, chills, chest pain, shortness of breath, or cough. Denies headache, neck stiff ness, change in vision, syncope, or near syncope. Denies abdominal pain, diarrhea, constipation, or dysuria. Has not noted any blood in urine or stool. Review of systems: As per history of present illness and below otherwise all systems reviewed and negative. Past medical history: As per history of present illness and as reviewed below otherwise noncontributory. Surgical history: As per history of present illness and as reviewed below otherwise noncontributory. Social history: See social history for further information Family history: As per history of present illness and as reviewed below otherwise noncontributory. Physical exam: General: Patient is alert, oriented, and in no acute distress. Patient laying comfortably on exam table, tired appearing. HEENT: Atraumatic, normocephalic, pupils equal and reactive bilaterally, negative for conjunctival pallor or scleral icterus, mucous membranes dry, TMs normal bilaterally, throat clear, neck supple, nontender, trachea midline. No drooling or trismus noted. No meningeal signs. No hot potato voice noted. Lungs: Clear to auscultation, breath sounds equal bilaterally, chest nontender. Heart: S1S2, regular rate and rhythm without overt murmur Abdomen: Soft, nondistended, nontender. Negative for masses or hepatosplenomegaly. Negative for costovertebral tenderness. Pelvis: Stable nontender. Genitourinary: Deferred. Rectal: Deferred. Skin: Intact, warm, dry. No lesions or rashes noted. Extremities: Atraumatic, negative for cords or calf pain. Neurovascular unremarkable. Neuro: Awake, alert, oriented. Cranial nerves II through XII unremarkable. Cerebellum unremarkable. Motor and sensory unremarkable throughout. Exam nonfocal. Notes: Dr. Overton verbally involved in patient care. Dr. Kilgore consult on patient and will admit to observation. Voices understanding and is agreeable to plan of care. Denies any further questions or concerns at this time. Diagnostics: CBC, CMP, UA, urine hCG, lipase, EKG, orthostatic vitals, magnesium, Therapeutics: Saline, Zofran, Potassium Impression: hypokalemia Dehydration h/o gastric bypass Plan: 1. Admit to observation to Dr. Kilgore Definitive disposition and diagnosis as appropriate pending reevaluation and review of above. 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: Musculoskeletal History: Reports: None Neurological History: Reports: None Psychiatric History: Reports: None Endocrine/Metabolic History: Reports: None Hematologic History: Reports: None Immunologic History: Reports: None Oncologic (Cancer) History: Reports: None Dermatologic History: Reports: None - Infectious Disease History Infectious Disease History: Reports: Chicken Pox - Past Surgical History Head Surgeries/Procedures: Reports: None GI Surgical History: Reports: Bariatric Procedure Female Surgical History: Reports: Section, D&C Neurological Surgical History: Reports: None Social & Family History - Family History Family Medical History: Noncontributory Cardiac: Reports: Other (See Below) Other Cardiac Family History: heart disease Respiratory: Reports: Asthma Endocrine/Metabolic: Reports: Diabetes, type II Oncologic: Reports: Other (See Below) Other Oncologic Family History: did not specify type - Tobacco Use Smoking Status *Q: Never Smoker - Caffeine Use Caffeine Use: Reports: None - Recreational Drug Use Recreational Drug Use: No - Living Situation & Occupation Living situation: Reports: Occupation: Employed ED ROS GENERAL - Review of Systems Review Of Systems: ROS reveals no pertinent complaints other than HPI. ED EXAM, GI/ABD - Physical Exam Exam: See Below (See dictation) Course - Vital Signs Last Recorded V/S: Last Vital Signs Temp 36.1 C 07/24/18 15:30 Pulse 104 H 07/24/18 15:30 Resp 18 07/24/18 15:30 BP 124/89 07/24/18 15:30 Pulse Ox 96 07/24/18 15:30 - Orders/Labs/Meds Orders: Active Orders 24 hr Category Date Time Status Admission Status [Patient Status] [ADT] Stat ADT 07/24/18 16:38 Ordered EKG Documentation Completion [RC] STAT Care 07/24/18 16:11 Active Orthostatic Vital Signs [RC] ASDIRECTED Care 07/24/18 16:11 Active HCG QUALITATIVE,URINE [URCHEM] Stat Lab 07/24/18 15:40 Ordered MAGNESIUM [CHEM] Stat Lab 07/24/18 16:37 Ordered UA RFX RIVERA AND CULT IF INDIC [URIN] Stat Lab 07/24/18 15:40 Ordered Potassium Chloride Riders [KCL 40 MEQ in Water 100 ML] Med 07/24/18 16:31 Ordered 40 meq Premix Bag 1 bag IV ONETIME Sodium Chloride 0.9% [Normal Saline] 1,000 ml Med 07/24/18 15:40 Active IV BOLUS Medication Orders Sodium Chloride (Normal Saline) 1,000 mls @ 999 mls/hr IV BOLUS ONE Stop: 07/24/18 16:40 Last Admin: 07/24/18 15:59 Dose: 999 mls/hr Potassium Chloride 40 meq/ (Premix) 100 mls @ 25 mls/hr IV ONETIME ONE Stop: 07/24/18 20:30 Labs: Laboratory Tests 07/24/18 07/24/18 Range/Units 15:47 15:47 WBC 6.10 (4.0-11.0) K/uL RBC 5.57 (4.30-5.90) M/uL Hgb 14.8 (12.0-16.0) g/dL Hct 44.5 (36.0-46.0) % MCV 79.9 L (80.0-98.0) fL MCH 26.6 L (27.0-32.0) pg MCHC 33.3 (31.0-37.0) g/dL RDW Std Deviation 41.9 (28.0-62.0) fl RDW Coeff of Madelyn 15 (11.0-15.0) % Plt Count 213 (150-400) K/uL MPV 12.20 H (7.40-12.00) fL Neut % (Auto) 50.8 (48.0-80.0) % Lymph % (Auto) 36.2 (16.0-40.0) % [place] % (Auto) 13.0 (0.0-15.0) % Eos % (Auto) 0.0 (0.0-7.0) % Baso % (Auto) 0.0 (0.0-1.5) % Neut # (Auto) 3.1 (1.4-5.7) K/uL Lymph # (Auto) 2.2 (0.6-2.4) K/uL [place] # (Auto) 0.8 (0.0-0.8) K/uL Eos # (Auto) 0.0 (0.0-0.7) K/uL Baso # (Auto) 0.0 (0.0-0.1) K/uL Nucleated RBC % 0.0 /100WBC Nucleated RBCs # 0 K/uL Sodium 141 (136-145) mmol/L Potassium 2.8 L (3.5-5.1) mmol/L Chloride 98 (98-107) mmol/L Carbon Dioxide 23.5 (21.0-32.0) mmol/L BUN 2 L (7.0-18.0) mg/dL Creatinine 0.7 (0.6-1.0) mg/dL Est Cr Clr Drug Dosing 101.48 mL/min Estimated GFR (MDRD) > 60.0 ml/min Glucose 110 H (74-106) mg/dL Calcium 9.5 (8.5-10.1) mg/dL Total Bilirubin 1.1 H (0.2-1.0) mg/dL AST 59 H (15-37) IU/L ALT 62 (14-63) IU/L Alkaline Phosphatase 71 (46-116) U/L Total Protein 7.5 (6.4-8.2) g/dL Albumin 4.0 (3.4-5.0) g/dL Globulin 3.5 (2.6-4.0) g/dL Albumin/Globulin Ratio 1.1 (0.9-1.6) Lipase 101 (73-393) U/L Meds: Medications Generic Name Dose Route Start Last Admin Trade Name Kevin PRN Reason Stop Dose Admin Sodium Chloride 1,000 mls @ 999 mls/hr 07/24/18 15:40 07/24/18 15:59 Normal Saline IV 07/24/18 16:40 999 mls/hr BOLUS ONE Administration Potassium Chloride 40 meq/ 100 mls @ 25 mls/hr 07/24/18 16:31 Premix IV 07/24/18 20:30 ONETIME ONE Discontinued Medications Generic Name Dose Route Start Last Admin Trade Name Kevin PRN Reason Stop Dose Admin Ondansetron HCl 4 mg 07/24/18 15:40 07/24/18 15:59 Zofran IVPUSH 07/24/18 15:41 4 mg ONETIME ONE Administration Departure - Departure Time of Disposition: 16:40 Disposition: Refer to Observation Clinical Impression: Hypokalemia, Dehydration, History of gastric bypass, Nausea - Discharge Information Referrals: PCP,Unknown [Primary Care Provider] - - My Orders Last 24 Hours: My Active Orders 07/24/18 15:40 HCG QUALITATIVE,URINE [URCHEM] Stat UA RFX RIVERA AND CULT IF INDIC [URIN] Stat Sodium Chloride 0.9% [Normal Saline] 1,000 ml IV BOLUS 07/24/18 16:11 EKG Documentation Completion [RC] STAT Orthostatic Vital Signs [RC] ASDIRECTED 07/24/18 16:31 Potassium Chloride Riders [KCL 40 MEQ in Water 100 ML] 40 meq Premix Bag 1 bag IV ONETIME 07/24/18 16:37 MAGNESIUM [CHEM] Stat 07/24/18 16:38 Admission Status [Patient Status] [ADT] Stat - Assessment/Plan Last 24 Hours: My Active Orders 07/24/18 15:40 HCG QUALITATIVE,URINE [URCHEM] Stat UA RFX RIVERA AND CULT IF INDIC [URIN] Stat Sodium Chloride 0.9% [Normal Saline] 1,000 ml IV BOLUS 07/24/18 16:11 EKG Documentation Completion [RC] STAT Orthostatic Vital Signs [RC] ASDIRECTED 07/24/18 16:31 Potassium Chloride Riders [KCL 40 MEQ in Water 100 ML] 40 meq Premix Bag 1 bag IV ONETIME 07/24/18 16:37 MAGNESIUM [CHEM] Stat 07/24/18 16:38 Admission Status [Patient Status] [ADT] Stat
[2018-07-24 16:16] LABS: CHLORIDE,CL 98 mmol/L (98-107); SODIUM,NA 141 mmol/L (136-145)
[2018-07-24] MEDS ORDERED: Potassium Chloride Riders 40 MEQ in Premix Bag 1 BAG IV ONE (16:31)
[2018-07-24] MEDS ORDERED: Sodium Chloride 0.9% 1,000 ML IV SCH (17:30)
--- NOTE | 2018-07-24 18:11 | PCM.HP ---
H&P History of Present Illness - General Date of Service: 07/24/18 Admit Problem/Dx: Admission Diagnosis/Problem Admission Diagnosis/Problem Hypokalemia Source of Information: Patient History Limitations: Reports: No Limitations - History of Present Illness Initial Comments - Free Text/Narative: 32F hx of recent gastric bypass procedure, depression presenting to the ER w/ complaint of nausea, vomiting x2-3 days. She is currently dry heaving. She does not endorse any abdominal pain, dizziness, pain elsewhere. She states that she has a f/u with her surgeon in [place] upcoming next week for an EGD. This issue with malabsorption, nausea has been a reoccurring issue. Her last bowel movement was a few days ago, which is normal as per her. She denies fever, hemoptysis. - Related Data Allergies/Adverse Reactions: Allergies Allergy/AdvReac Type Severity Reaction Status Date / Time No Known Allergies Allergy Verified 07/24/18 15:38 Home Medications: Home Meds Scopolamine [Transderm-Scop] 1 mg TOP ASDIRECTED 06/10/18 [History] Venlafaxine HCl [Venlafaxine ER] 150 mg PO DAILY 06/10/18 [History] Ondansetron [Zofran ODT] 4 mg PO Q6H PRN #12 tab.dis 06/11/18 [Rx] Past Medical History HEENT History: Reports: None Other HEENT History: glasse Cardiovascular History: Reports: None Respiratory History: Reports: None Gastrointestinal History: Reports: None Genitourinary History: Reports: None 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: Musculoskeletal History: Reports: None Neurological History: Reports: None Psychiatric History: Reports: None Endocrine/Metabolic History: Reports: None Hematologic History: Reports: None Immunologic History: Reports: None Oncologic (Cancer) History: Reports: None Dermatologic History: Reports: None - Infectious Disease History Infectious Disease History: Reports: Chicken Pox - Past Surgical History Head Surgeries/Procedures: Reports: None GI Surgical History: Reports: Bariatric Procedure Female Surgical History: Reports: Section, D&C Neurological Surgical History: Reports: None Social & Family History - Family History Family Medical History: Noncontributory Cardiac: Reports: Other (See Below) Other Cardiac Family History: heart disease Respiratory: Reports: Asthma Endocrine/Metabolic: Reports: Diabetes, type II Oncologic: Reports: Other (See Below) Other Oncologic Family History: did not specify type - Tobacco Use Smoking Status *Q: Never Smoker - Caffeine Use Caffeine Use: Reports: None - Recreational Drug Use Recreational Drug Use: No - Living Situation & Occupation Living situation: Reports: Occupation: Employed H&P Review of Systems - Review of Systems: Review Of Systems: ROS reveals no pertinent complaints other than HPI. Exam - Exam Exam: See Below - Vital Signs Vital Signs: Last Vital Signs Temp 36.1 C 07/24/18 15:30 Pulse 67 07/24/18 17:25 Resp 18 07/24/18 17:25 BP 108/69 07/24/18 17:25 Pulse Ox 99 07/24/18 17:25 Orthostatic Blood Pressure [ 100/52 Standing] Orthostatic Blood Pressure [ 105/59 Sitting] Orthostatic Blood Pressure [ 104/73 Supine] Weight: 75 kg - Exam General: Alert, Oriented, 4 HEENT: Conjunctiva Clear, EACs Clear, EOMI, Hearing Intact, Nares Patent, Normal Nasal Septum, Posterior Pharynx Clear, TMs Clear, Other (dry oral mucosa) , PERRLA Neck: Supple, Trachea Midline, 2 Lungs: Clear to Auscultation, Normal Respiratory Effort Cardiovascular: Regular Rate, Regular Rhythm GI/Abdominal Exam: Normal Bowel Sounds, Soft, Non-Tender, No Organomegaly, No Distention, No Abnormal Bruit, No Mass Back Exam: Normal Inspection, Full Range of Motion, NT Extremities: Normal Inspection, No Pedal Edema Peripheral Pulses: 2+: Dorsalis Pedis (L), Dorsalis Pedis (R) Skin: Warm, Dry, Intact Neurological: Cranial Nerves Intact, Reflexes Equal Bilateral DTR: 1+: Achilles (L), Achilles (R) Psychiatric: Alert, Normal Affect, Normal Mood - Patient Data Lab Results Last 24 hrs: Laboratory Results - last 24 hr 07/24/18 07/24/18 07/24/18 Range/Units 15:47 15:47 15:47 WBC 6.10 (4.0-11.0) K/uL RBC 5.57 (4.30-5.90) M/uL Hgb 14.8 (12.0-16.0) g/dL Hct 44.5 (36.0-46.0) % MCV 79.9 L (80.0-98.0) fL MCH 26.6 L (27.0-32.0) pg MCHC 33.3 (31.0-37.0) g/dL RDW Std Deviation 41.9 (28.0-62.0) fl RDW Coeff of Madelyn 15 (11.0-15.0) % Plt Count 213 (150-400) K/uL MPV 12.20 H (7.40-12.00) fL Neut % (Auto) 50.8 (48.0-80.0) % Lymph % (Auto) 36.2 (16.0-40.0) % [place] % (Auto) 13.0 (0.0-15.0) % Eos % (Auto) 0.0 (0.0-7.0) % Baso % (Auto) 0.0 (0.0-1.5) % Neut # (Auto) 3.1 (1.4-5.7) K/uL Lymph # (Auto) 2.2 (0.6-2.4) K/uL [place] # (Auto) 0.8 (0.0-0.8) K/uL Eos # (Auto) 0.0 (0.0-0.7) K/uL Baso # (Auto) 0.0 (0.0-0.1) K/uL Nucleated RBC % 0.0 /100WBC Nucleated RBCs # 0 K/uL Sodium 141 (136-145) mmol/L Potassium 2.8 L (3.5-5.1) mmol/L Chloride 98 (98-107) mmol/L Carbon Dioxide 23.5 (21.0-32.0) mmol/L BUN 2 L (7.0-18.0) mg/dL Creatinine 0.7 (0.6-1.0) mg/dL Est Cr Clr Drug Dosing 101.48 mL/min Estimated GFR (MDRD) > 60.0 ml/min Glucose 110 H (74-106) mg/dL Calcium 9.5 (8.5-10.1) mg/dL Magnesium 1.9 (1.8-2.4) mg/dL Total Bilirubin 1.1 H (0.2-1.0) mg/dL AST 59 H (15-37) IU/L ALT 62 (14-63) IU/L Alkaline Phosphatase 71 (46-116) U/L Total Protein 7.5 (6.4-8.2) g/dL Albumin 4.0 (3.4-5.0) g/dL Globulin 3.5 (2.6-4.0) g/dL Albumin/Globulin Ratio 1.1 (0.9-1.6) Lipase 101 (73-393) U/L Urine Color Urine Appearance Urine pH (5.0-8.0) Ur Specific [place] (1.001-1.035) Urine Protein (NEGATIVE) mg/dL Urine Glucose (UA) (NEGATIVE) mg/dL Urine Ketones (NEGATIVE) mg/dL Urine Occult Blood (NEGATIVE) Urine Nitrite (NEGATIVE) Urine Bilirubin (NEGATIVE) Urine Ictotest Urine Urobilinogen (<2.0) EU/dL Ur Leukocyte Esterase (NEGATIVE) Urine RBC (0-2/HPF) Urine WBC (0-5/HPF) Ur Epithelial Cells (NONE-FEW) Urine Bacteria (NEGATIVE) Urine HCG, Qual (NEGATIVE) 07/24/18 07/24/18 Range/Units 16:55 16:56 WBC (4.0-11.0) K/uL RBC (4.30-5.90) M/uL Hgb (12.0-16.0) g/dL Hct (36.0-46.0) % MCV (80.0-98.0) fL MCH (27.0-32.0) pg MCHC (31.0-37.0) g/dL RDW Std Deviation (28.0-62.0) fl RDW Coeff of Madelyn (11.0-15.0) % Plt Count (150-400) K/uL MPV (7.40-12.00) fL Neut % (Auto) (48.0-80.0) % Lymph % (Auto) (16.0-40.0) % [place] % (Auto) (0.0-15.0) % Eos % (Auto) (0.0-7.0) % Baso % (Auto) (0.0-1.5) % Neut # (Auto) (1.4-5.7) K/uL Lymph # (Auto) (0.6-2.4) K/uL [place] # (Auto) (0.0-0.8) K/uL Eos # (Auto) (0.0-0.7) K/uL Baso # (Auto) (0.0-0.1) K/uL Nucleated RBC % /100WBC Nucleated RBCs # K/uL Sodium (136-145) mmol/L Potassium (3.5-5.1) mmol/L Chloride (98-107) mmol/L Carbon Dioxide (21.0-32.0) mmol/L BUN (7.0-18.0) mg/dL Creatinine (0.6-1.0) mg/dL Est Cr Clr Drug Dosing mL/min Estimated GFR (MDRD) ml/min Glucose (74-106) mg/dL Calcium (8.5-10.1) mg/dL Magnesium (1.8-2.4) mg/dL Total Bilirubin (0.2-1.0) mg/dL AST (15-37) IU/L ALT (14-63) IU/L Alkaline Phosphatase (46-116) U/L Total Protein (6.4-8.2) g/dL Albumin (3.4-5.0) g/dL Globulin (2.6-4.0) g/dL Albumin/Globulin Ratio (0.9-1.6) Lipase (73-393) U/L Urine Color YELLOW Urine Appearance CLEAR Urine pH 6.0 (5.0-8.0) Ur Specific [place] >= 1.030 (1.001-1.035) Urine Protein 30 H (NEGATIVE) mg/dL Urine Glucose (UA) NEGATIVE (NEGATIVE) mg/dL Urine Ketones >=80 (NEGATIVE) mg/dL Urine Occult Blood LARGE H (NEGATIVE) Urine Nitrite NEGATIVE (NEGATIVE) Urine Bilirubin SMALL H (NEGATIVE) Urine Ictotest NEGATIVE Urine Urobilinogen 0.2 (<2.0) EU/dL Ur Leukocyte Esterase NEGATIVE (NEGATIVE) Urine RBC 7-8 (0-2/HPF) Urine WBC 0-1 (0-5/HPF) Ur Epithelial Cells FEW (NONE-FEW) Urine Bacteria FEW (NEGATIVE) Urine HCG, Qual NEGATIVE (NEGATIVE) Result Diagrams: 07/24/18 15:47 07/24/18 15:47 Problem List Initiated/Reviewed/Updated: Yes Orders Last 24hrs: Active Orders 24 hr Category Date Time Status Admission Status [Patient Status] [ADT] Stat ADT 07/24/18 16:38 Active EKG Documentation Completion [RC] STAT Care 07/24/18 16:11 Active Orthostatic Vital Signs [RC] ASDIRECTED Care 07/24/18 16:11 Active Potassium Chloride Riders [KCL 40 MEQ in Water 100 ML] Med 07/24/18 16:31 Active 40 meq Premix Bag 1 bag IV ONETIME Sodium Chloride 0.9% [Normal Saline] 1,000 ml Med 07/24/18 17:30 Active IV ASDIRECTED Medication Orders Potassium Chloride 40 meq/ (Premix) 100 mls @ 25 mls/hr IV ONETIME ONE Stop: 07/24/18 20:30 Last Admin: 07/24/18 17:28 Dose: 25 mls/hr Sodium Chloride (Normal Saline) 1,000 mls @ 125 mls/hr IV ASDIRECTED [facility] Last Admin: 07/24/18 17:28 Dose: 125 mls/hr Assessment/Plan Comment:: Assessment: #1. Dehydration #2. Hypokalemia #3. Nausea #4. History of gastric bypass procedure Plan: #1. Refer to observation #2. Vitals per floor #3. Regular diet #4. IVNS + 40meq KCl at 125ml/h #5. 20meq KCl PO x1. She received 40meq of potassium in the ER #6. PRN Zofran #7. Repeat bmp tomorrow AM #8. Anticipate dc 1-2 days
[2018-07-24] MEDS ORDERED: Ondansetron 4 MG/2 ML SDV IVPUSH PRN (18:13)
[2018-07-24] MEDS ORDERED: Potassium Chloride 40 MEQ in Sodium Chloride 0.9% 480 ML IV ONE (18:15)
[2018-07-24] MEDS ORDERED: Potassium Chloride 20 MEQ Tab.ER PO ONE (18:15)
[2018-07-24] MEDS ORDERED: Potassium Chloride 20 MEQ Tab.ER PO SCH (20:45)
[2018-07-24] MEDS: NS + KCl 20mEq/L 1,000 ML IV SCH (23:46)
[2018-07-25] MEDS: NS + KCl 20mEq/L 1,000 ML IV SCH (06:49)
[2018-07-25 08:14] LABS: CHLORIDE,CL 109 mmol/L (98-107); SODIUM,NA 147 mmol/L (136-145)
[2018-07-25] MEDS: Simethicone 80 MG Tab.Chew PO ONE ×2 (08:26→14:53)
[2018-07-25] MEDS: Potassium Chloride 20 MEQ Tab.ER PO ONE ×2 (08:50→08:56)
[2018-07-25 08:53] LABS: BILIRUBIN INDIRECT 0.71
[2018-07-25] MEDS ORDERED: Potassium Chloride 20 MEQ Tab.ER PO ONE ×2 (09:21→10:03)
[2018-07-25] MEDS ORDERED: Sodium Chloride 0.9% with KCl 1,000 ML IV SCH (09:30)
[2018-07-25] MEDS ORDERED: Potassium Chloride 10% 20 MEQ/15 ML Soln 30 ML UD Cup PO ONE (10:15)
[2018-07-25 12:28] VITALS: BP 90/55
--- NOTE | 2018-07-25 13:59 | PCM.DCSUM1 ---
Discharge Summary - Hospital Course Free Text/Narrative:: Admission date: 07/24/2018 Discharge date: 07/25/2018 Admission dx: #1. Dehydration #2. Hypokalemia #3. Nausea #4. History of gastric bypass procedure Discharge dx: #1. Mild hypokalemia #2. History of gastric bypass Hospital course: 32F hx of gastric bypass presented w/ intractable nausea and dry heaving found to be mildly dehydrated and hypokalemia. She was given IV fluids and potassium replacement. next morning she felt better w/ K+ of 3.3. She wanted to go home. She is to go home on oral liquid Potassium which is low likely to malabsorption issues. She has a f/u with her surgeon who did her gastric bypass next week where she'll get an EGD as this has been a reoccuring issue after her procedure. I recommend repeat K+ check at her f/u with PCP. - Discharge Data Discharge Date: 07/25/18 Discharge Disposition: Home, Self-Care 01 Condition: Stable - Patient Instructions Diet: Usual Diet as Tolerated Activity: As Tolerated Notify Provider of: Fever, Increased Pain, Nausea and/or Vomiting - Discharge Plan Prescriptions/Med Rec: Potassium Chloride [Potassium Chloride Solution] 20 meq PO DAILY 5 Days #1 bottle Home Medications: Home Meds Scopolamine [Transderm-Scop] 1 mg TOP ASDIRECTED 06/10/18 [History] Venlafaxine HCl [Venlafaxine ER] 150 mg PO DAILY 06/10/18 [History] Ondansetron [Zofran ODT] 4 mg PO Q6H PRN #12 tab.dis 06/11/18 [Rx] Potassium Chloride [Potassium Chloride Solution] 20 meq PO DAILY 5 Days #1 bottle 07/25/18 [Rx] Patient Handouts: Hypokalemia Referrals: Rebecca Chun PA [Physician Outreach Nurse] - 07/31/18 2:30 pm - Discharge Summary/Plan Comment DC Time >30 min.: No - Patient Data Vitals - Most Recent: Last Vital Signs Temp 36.1 C 07/25/18 12:00 Pulse 58 L 07/25/18 12:00 Resp 16 07/25/18 12:00 BP 90/55 L 07/25/18 12:00 Pulse Ox 100 07/25/18 12:00 Orthostatic Blood Pressure [ 100/52 Standing] Orthostatic Blood Pressure [ 105/59 Sitting] Orthostatic Blood Pressure [ 104/73 Supine] Weight - Most Recent: 73.5 kg I&O - Last 24 hours: Intake & Output 07/24/18 07/25/18 07/25/18 22:59 06:59 14:59 Intake Total 1075 Output Total 750 Balance 325 Lab Results - Last 24 hrs: Laboratory Results - last 24 hr 07/24/18 07/24/18 07/24/18 Range/Units 15:47 15:47 15:47 WBC 6.10 (4.0-11.0) K/uL RBC 5.57 (4.30-5.90) M/uL Hgb 14.8 (12.0-16.0) g/dL Hct 44.5 (36.0-46.0) % MCV 79.9 L (80.0-98.0) fL MCH 26.6 L (27.0-32.0) pg MCHC 33.3 (31.0-37.0) g/dL RDW Std Deviation 41.9 (28.0-62.0) fl RDW Coeff of Madelyn 15 (11.0-15.0) % Plt Count 213 (150-400) K/uL MPV 12.20 H (7.40-12.00) fL Neut % (Auto) 50.8 (48.0-80.0) % Lymph % (Auto) 36.2 (16.0-40.0) % [place] % (Auto) 13.0 (0.0-15.0) % Eos % (Auto) 0.0 (0.0-7.0) % Baso % (Auto) 0.0 (0.0-1.5) % Neut # (Auto) 3.1 (1.4-5.7) K/uL Lymph # (Auto) 2.2 (0.6-2.4) K/uL [place] # (Auto) 0.8 (0.0-0.8) K/uL Eos # (Auto) 0.0 (0.0-0.7) K/uL Baso # (Auto) 0.0 (0.0-0.1) K/uL Nucleated RBC % 0.0 /100WBC Nucleated RBCs # 0 K/uL Sodium 141 (136-145) mmol/L Potassium 2.8 L (3.5-5.1) mmol/L Chloride 98 (98-107) mmol/L Carbon Dioxide 23.5 (21.0-32.0) mmol/L BUN 2 L (7.0-18.0) mg/dL Creatinine 0.7 (0.6-1.0) mg/dL Est Cr Clr Drug Dosing 101.48 mL/min Estimated GFR (MDRD) > 60.0 ml/min Glucose 110 H (74-106) mg/dL Calcium 9.5 (8.5-10.1) mg/dL Magnesium 1.9 (1.8-2.4) mg/dL Total Bilirubin 1.1 H (0.2-1.0) mg/dL Direct Bilirubin (0.0-0.5) mg/dL Indirect Bilirubin AST 59 H (15-37) IU/L ALT 62 (14-63) IU/L Alkaline Phosphatase 71 (46-116) U/L Total Protein 7.5 (6.4-8.2) g/dL Albumin 4.0 (3.4-5.0) g/dL Globulin 3.5 (2.6-4.0) g/dL Albumin/Globulin Ratio 1.1 (0.9-1.6) Lipase 101 (73-393) U/L Urine Color Urine Appearance Urine pH (5.0-8.0) Ur Specific [place] (1.001-1.035) Urine Protein (NEGATIVE) mg/dL Urine Glucose (UA) (NEGATIVE) mg/dL Urine Ketones (NEGATIVE) mg/dL Urine Occult Blood (NEGATIVE) Urine Nitrite (NEGATIVE) Urine Bilirubin (NEGATIVE) Urine Ictotest Urine Urobilinogen (<2.0) EU/dL Ur Leukocyte Esterase (NEGATIVE) Urine RBC (0-2/HPF) Urine WBC (0-5/HPF) Ur Epithelial Cells (NONE-FEW) Urine Bacteria (NEGATIVE) Urine HCG, Qual (NEGATIVE) 07/24/18 07/24/18 07/25/18 Range/Units 16:55 16:56 07:35 WBC (4.0-11.0) K/uL RBC (4.30-5.90) M/uL Hgb (12.0-16.0) g/dL Hct (36.0-46.0) % MCV (80.0-98.0) fL MCH (27.0-32.0) pg MCHC (31.0-37.0) g/dL RDW Std Deviation (28.0-62.0) fl RDW Coeff of Madelyn (11.0-15.0) % Plt Count (150-400) K/uL MPV (7.40-12.00) fL Neut % (Auto) (48.0-80.0) % Lymph % (Auto) (16.0-40.0) % [place] % (Auto) (0.0-15.0) % Eos % (Auto) (0.0-7.0) % Baso % (Auto) (0.0-1.5) % Neut # (Auto) (1.4-5.7) K/uL Lymph # (Auto) (0.6-2.4) K/uL [place] # (Auto) (0.0-0.8) K/uL Eos # (Auto) (0.0-0.7) K/uL Baso # (Auto) (0.0-0.1) K/uL Nucleated RBC % /100WBC Nucleated RBCs # K/uL Sodium 147 H (136-145) mmol/L Potassium 3.0 L (3.5-5.1) mmol/L Chloride 109 H (98-107) mmol/L Carbon Dioxide 21.8 (21.0-32.0) mmol/L BUN 2 L (7.0-18.0) mg/dL Creatinine 0.6 (0.6-1.0) mg/dL Est Cr Clr Drug Dosing 118.39 mL/min Estimated GFR (MDRD) > 60.0 ml/min Glucose 76 (74-106) mg/dL Calcium 8.5 (8.5-10.1) mg/dL Magnesium (1.8-2.4) mg/dL Total Bilirubin (0.2-1.0) mg/dL Direct Bilirubin (0.0-0.5) mg/dL Indirect Bilirubin AST (15-37) IU/L ALT (14-63) IU/L Alkaline Phosphatase (46-116) U/L Total Protein (6.4-8.2) g/dL Albumin (3.4-5.0) g/dL Globulin (2.6-4.0) g/dL Albumin/Globulin Ratio (0.9-1.6) Lipase (73-393) U/L Urine Color YELLOW Urine Appearance CLEAR Urine pH 6.0 (5.0-8.0) Ur Specific [place] >= 1.030 (1.001-1.035) Urine Protein 30 H (NEGATIVE) mg/dL Urine Glucose (UA) NEGATIVE (NEGATIVE) mg/dL Urine Ketones >=80 (NEGATIVE) mg/dL Urine Occult Blood LARGE H (NEGATIVE) Urine Nitrite NEGATIVE (NEGATIVE) Urine Bilirubin SMALL H (NEGATIVE) Urine Ictotest NEGATIVE Urine Urobilinogen 0.2 (<2.0) EU/dL Ur Leukocyte Esterase NEGATIVE (NEGATIVE) Urine RBC 7-8 (0-2/HPF) Urine WBC 0-1 (0-5/HPF) Ur Epithelial Cells FEW (NONE-FEW) Urine Bacteria FEW (NEGATIVE) Urine HCG, Qual NEGATIVE (NEGATIVE) 07/25/18 07/25/18 Range/Units 07:35 13:00 WBC (4.0-11.0) K/uL RBC (4.30-5.90) M/uL Hgb (12.0-16.0) g/dL Hct (36.0-46.0) % MCV (80.0-98.0) fL MCH (27.0-32.0) pg MCHC (31.0-37.0) g/dL RDW Std Deviation (28.0-62.0) fl RDW Coeff of Madelyn (11.0-15.0) % Plt Count (150-400) K/uL MPV (7.40-12.00) fL Neut % (Auto) (48.0-80.0) % Lymph % (Auto) (16.0-40.0) % [place] % (Auto) (0.0-15.0) % Eos % (Auto) (0.0-7.0) % Baso % (Auto) (0.0-1.5) % Neut # (Auto) (1.4-5.7) K/uL Lymph # (Auto) (0.6-2.4) K/uL [place] # (Auto) (0.0-0.8) K/uL Eos # (Auto) (0.0-0.7) K/uL Baso # (Auto) (0.0-0.1) K/uL Nucleated RBC % /100WBC Nucleated RBCs # K/uL Sodium (136-145) mmol/L Potassium 3.3 L (3.5-5.1) mmol/L Chloride (98-107) mmol/L Carbon Dioxide (21.0-32.0) mmol/L BUN (7.0-18.0) mg/dL Creatinine (0.6-1.0) mg/dL Est Cr Clr Drug Dosing mL/min Estimated GFR (MDRD) ml/min Glucose (74-106) mg/dL Calcium (8.5-10.1) mg/dL Magnesium 1.8 (1.8-2.4) mg/dL Total Bilirubin 0.9 (0.2-1.0) mg/dL Direct Bilirubin 0.19 (0.0-0.5) mg/dL Indirect Bilirubin 0.71 AST 37 (15-37) IU/L ALT 44 (14-63) IU/L Alkaline Phosphatase 51 (46-116) U/L Total Protein 6.0 L (6.4-8.2) g/dL Albumin 3.1 L (3.4-5.0) g/dL Globulin 2.9 (2.6-4.0) g/dL Albumin/Globulin Ratio 1.1 (0.9-1.6) Lipase (73-393) U/L Urine Color Urine Appearance Urine pH (5.0-8.0) Ur Specific [place] (1.001-1.035) Urine Protein (NEGATIVE) mg/dL Urine Glucose (UA) (NEGATIVE) mg/dL Urine Ketones (NEGATIVE) mg/dL Urine Occult Blood (NEGATIVE) Urine Nitrite (NEGATIVE) Urine Bilirubin (NEGATIVE) Urine Ictotest Urine Urobilinogen (<2.0) EU/dL Ur Leukocyte Esterase (NEGATIVE) Urine RBC (0-2/HPF) Urine WBC (0-5/HPF) Ur Epithelial Cells (NONE-FEW) Urine Bacteria (NEGATIVE) Urine HCG, Qual (NEGATIVE) Med Orders - Current: Current Medications Potassium Chloride/Sodium Chloride (Normal Saline With 40 Meq Kcl) 1,000 mls @ 200 mls/hr IV ASDIRECTED REUBEN Stop: 07/25/18 14:29 Last Admin: 07/25/18 10:38 Dose: 200 mls/hr Ondansetron HCl (Zofran) 4 mg IVPUSH Q4H PRN PRN Reason: Nausea Last Admin: 07/24/18 22:31 Dose: 4 mg Discontinued Medications Sodium Chloride (Normal Saline) 1,000 mls @ 999 mls/hr IV BOLUS ONE Stop: 07/24/18 16:40 Last Admin: 07/24/18 15:59 Dose: 999 mls/hr Potassium Chloride 40 meq/ (Premix) 100 mls @ 25 mls/hr IV ONETIME ONE Stop: 07/24/18 20:30 Last Admin: 07/24/18 17:28 Dose: 25 mls/hr Sodium Chloride (Normal Saline) 1,000 mls @ 125 mls/hr IV ASDIRECTED [facility] Last Admin: 07/24/18 17:28 Dose: 125 mls/hr Potassium Chloride 40 meq/ (Sodium Chloride) 500 mls @ 125 mls/hr IV ONETIME ONE Stop: 07/24/18 22:14 Last Admin: 07/24/18 23:27 Dose: Not Given Potassium Chloride/Sodium Chloride (Normal Saline With 20 Meq Kcl) 1,000 mls @ 150 mls/hr IV ASDIRECTED [facility] Last Admin: 07/25/18 06:49 Dose: 150 mls/hr Ondansetron HCl (Zofran) 4 mg IVPUSH ONETIME ONE Stop: 07/24/18 15:41 Last Admin: 07/24/18 15:59 Dose: 4 mg Potassium Chloride (Klor-Con M20) 20 meq PO ONETIME ONE Stop: 07/24/18 18:16 Last Admin: 07/24/18 23:25 Dose: Not Given Potassium Chloride (Klor-Con M20) 20 meq PO ONETIME REUBEN Stop: 07/24/18 23:00 Potassium Chloride (Klor-Con M20) 40 meq PO ONETIME ONE Stop: 07/25/18 08:28 Last Admin: 07/25/18 08:56 Dose: Not Given Potassium Chloride (Klor-Con M20) 40 meq PO ONETIME ONE Stop: 07/25/18 09:22 Last Admin: 07/25/18 11:05 Dose: Not Given Potassium Chloride (Potassium Chloride) 40 meq PO ONETIME ONE Stop: 07/25/18 10:16 Last Admin: 07/25/18 10:15 Dose: 40 meq Simethicone (Simethicone) 160 mg PO ONETIME ONE Stop: 07/25/18 08:13 Last Admin: 07/25/18 08:26 Dose: 160 mg
== END 2018-07-25 14:45 | disposition home or self-care (01) ==
LOC: MW.ED 15:23 → MW.MS 18:42
PROVIDERS: ADMIT Internal Medicine; ATTEND Internal Medicine
DX: E87.6 Hypokalemia (principal); E86.0 Dehydration; Z98.84 Bariatric surgery status; Z79.899 Other long term (current) drug therapy
CPT/HCPCS: 36415; 80048; 80053; 80076; 81001; 81025; 83690; 83735; 84132; 85025; 93005; 96361; 96365; 96366; 96375; 96376; 99285; A4217; A9270; G0378; J2405; J3480; J7040

== ENCOUNTER 2018-08-13 09:48 | Inpatient (IN) | payer BC ==
[2018-08-13] MEDS ORDERED: Ondansetron 4 MG/2 ML SDV IVPUSH ONE (10:06)
[2018-08-13] MEDS ORDERED: Sodium Chloride 0.9% 1,000 ML IV ONE ×2 (10:06→10:56)
--- NOTE | 2018-08-13 10:11 | EDM.PDOC ---
ED HPI GENERAL MEDICAL PROBLEM - General Chief Complaint: Gastrointestinal Problem Stated Complaint: DEHYDRATION Time Seen by Provider: 08/13/18 10:07 Source of Information: Reports: Patient History Limitations: Reports: No Limitations - History of Present Illness INITIAL COMMENTS - FREE TEXT/NARRATIVE: HISTORY AND PHYSICAL: History of present illness: Patient is a 32-year-old female who presents to the emergency room with complaints of nausea and vomiting 3 days. She had a bariatric surgery performed in March 2018 in [place]. Denies any postoperative complications. She states since that time she has had 3 separate episodes of nausea and vomiting. Recently she had a EGD done for further assessment of these symptoms. Mom reports there were no significant findings with the EGD. She had been prescribed some antinausea medications for these symptoms but states she has not tried them this round and she felt they were not giving her any relief. She has been encouraged to follow-up with the primary care provider here in [place] but states she is not able to be evaluated until August. Patient denies any fever, chills, headache, change in vision, syncope or near syncope. Denies any chest pain, back pain, shortness of breath or cough. Denies any diarrhea, constipation or dysuria. Has not noted any blood in urine or stool. Patient has been eating and drinking appropriately. Review of systems: As per history of present illness and below otherwise all systems reviewed and negative. Past medical history: As per history of present illness and as reviewed below otherwise noncontributory. Surgical history: As per history of present illness and as reviewed below otherwise noncontributory. Social history: See social history for further information Family history: As per history of present illness and as reviewed below otherwise noncontributory. Physical exam: General: Well-developed and well-nourished 32-year-old female. Alert and oriented. Flat affect and avoids eye contact. Nontoxic appearing and in no acute distress. HEENT: Atraumatic, normocephalic, pupils equal and reactive bilaterally, negative for conjunctival pallor or scleral icterus, mucous membranes moist, trachea midline. No drooling or trismus noted. No meningeal signs. No hot potato voice noted. Lungs: Clear to auscultation, breath sounds equal bilaterally, chest nontender. Heart: S1S2, regular rate and rhythm without overt murmur Abdomen: Soft, nondistended, nontender. Negative for masses. Negative for costovertebral tenderness. Pelvis: Stable nontender. Genitourinary: Deferred. Rectal: Deferred. Skin: Intact, warm, dry. No lesions or rashes noted. Extremities: Atraumatic, moves all extremities per self without difficulty or deficits. Neurovascular unremarkable. Neuro: Awake, alert, oriented. Cranial nerves II through XII unremarkable. Cerebellum unremarkable. Motor and sensory unremarkable throughout. Exam nonfocal. Notes: Patient reports that she does have a history of hypokalemia although does not take any supplement replacements for this. Today her potassium is low. We'll give her IV replacement of this. We did discuss admission for fluid and electrolyte replacement. She is agreeable. Dr. Blackman was consulted on this case and agreeable for admission. Vital signs remain stable. We'll continue to monitor. Diagnostics: CBC, CMP, lipase, UA, magnesium, EKG Therapeutics: IV fluids, zofran, 40meQ K Impression: Hypokalemia History of bariatric surgery Dehydration Plan: Observation admission to [facility] Definitive disposition and diagnosis as appropriate pending reevaluation and review of above. 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: Musculoskeletal History: Reports: None Neurological History: Reports: None Psychiatric History: Reports: None Endocrine/Metabolic History: Reports: None Hematologic History: Reports: None Immunologic History: Reports: None Oncologic (Cancer) History: Reports: None Dermatologic History: Reports: None - Infectious Disease History Infectious Disease History: Reports: Chicken Pox - Past Surgical History Head Surgeries/Procedures: Reports: None GI Surgical History: Reports: Bariatric Procedure Female Surgical History: Reports: Section, D&C Neurological Surgical History: Reports: None Social & Family History - Family History Family Medical History: Noncontributory Cardiac: Reports: Other (See Below) Other Cardiac Family History: heart disease Respiratory: Reports: Asthma Endocrine/Metabolic: Reports: Diabetes, type II Oncologic: Reports: Other (See Below) Other Oncologic Family History: did not specify type - Tobacco Use Smoking Status *Q: Never Smoker - Caffeine Use Caffeine Use: Reports: None - Recreational Drug Use Recreational Drug Use: No - Living Situation & Occupation Living situation: Reports: Occupation: Employed ED ROS GENERAL - Review of Systems Review Of Systems: ROS reveals no pertinent complaints other than HPI. ED EXAM, GI/ABD - Physical Exam Exam: See Below (See dictation) Course - Vital Signs Last Recorded V/S: Last Vital Signs Temp 96.9 F 08/13/18 09:55 Pulse 68 08/13/18 11:12 Resp 18 08/13/18 11:12 BP 105/72 08/13/18 11:12 Pulse Ox 98 08/13/18 11:12 - Orders/Labs/Meds Orders: Active Orders 24 hr Category Date Time Status Admission Status [Patient Status] [ADT] Stat ADT 08/13/18 11:18 Active EKG Documentation Completion [RC] STAT Care 08/13/18 10:53 Active HCG QUALITATIVE,URINE [URCHEM] Stat Lab 08/13/18 10:06 Ordered UA RFX RIVERA AND CULT IF INDIC [URIN] Stat Lab 08/13/18 10:06 Ordered Potassium Chloride Riders [KCL 40 MEQ in Water 100 ML] Med 08/13/18 10:52 Active 40 meq Premix Bag 1 bag IV ONETIME Sodium Chloride 0.9% [Normal Saline] 1,000 ml Med 08/13/18 10:56 Active IV STAT Medication Orders Enoxaparin Sodium (Lovenox) 40 mg SUBCUT Q24H [facility] Last Admin: 08/13/18 12:46 Dose: 40 mg Potassium Chloride 40 meq/ (Premix) 100 mls @ 25 mls/hr IV ONETIME ONE Stop: 08/13/18 14:51 Last Admin: 08/13/18 11:37 Dose: 25 mls/hr Sodium Chloride (Normal Saline) 1,000 mls @ 125 mls/hr IV STAT ONE Stop: 08/13/18 18:55 Last Admin: 08/13/18 11:37 Dose: 125 mls/hr Ketorolac Tromethamine (Toradol) 30 mg IM Q6H PRN PRN Reason: Pain (moderate 4-6) Morphine Sulfate (Morphine) 2 mg IVPUSH Q2H PRN PRN Reason: Pain (severe 7-10) Stop: 08/14/18 11:50 Ondansetron HCl (Zofran) 4 mg IVPUSH Q4H PRN PRN Reason: Nausea Labs: Laboratory Tests 08/13/18 08/13/18 08/13/18 Range/Units 10:15 10:18 10:18 WBC 5.76 (4.0-11.0) K/uL RBC 5.73 (4.30-5.90) M/uL Hgb 15.6 (12.0-16.0) g/dL Hct 47.1 H (36.0-46.0) % MCV 82.2 (80.0-98.0) fL MCH 27.2 (27.0-32.0) pg MCHC 33.1 (31.0-37.0) g/dL RDW Std Deviation 46.4 (28.0-62.0) fl RDW Coeff of Madelyn 16 H (11.0-15.0) % Plt Count 256 (150-400) K/uL MPV 11.90 (7.40-12.00) fL Neut % (Auto) 51.9 (48.0-80.0) % Lymph % (Auto) 34.0 (16.0-40.0) % [place] % (Auto) 14.1 (0.0-15.0) % Eos % (Auto) 0.0 (0.0-7.0) % Baso % (Auto) 0.0 (0.0-1.5) % Neut # (Auto) 3.0 (1.4-5.7) K/uL Lymph # (Auto) 2.0 (0.6-2.4) K/uL [place] # (Auto) 0.8 (0.0-0.8) K/uL Eos # (Auto) 0.0 (0.0-0.7) K/uL Baso # (Auto) 0.0 (0.0-0.1) K/uL Nucleated RBC % 0.0 /100WBC Nucleated RBCs # 0 K/uL Sodium 142 (136-145) mmol/L Potassium 2.7 L (3.5-5.1) mmol/L Chloride 103 (98-107) mmol/L Carbon Dioxide 19.2 L (21.0-32.0) mmol/L BUN 5 L (7.0-18.0) mg/dL Creatinine 0.7 (0.6-1.0) mg/dL Est Cr Clr Drug Dosing 101.48 mL/min Estimated GFR (MDRD) > 60.0 ml/min Glucose 136 H (74-106) mg/dL Calcium 9.3 (8.5-10.1) mg/dL Magnesium (1.8-2.4) mg/dL Total Bilirubin 1.1 H (0.2-1.0) mg/dL AST 40 H (15-37) IU/L ALT 50 (14-63) IU/L Alkaline Phosphatase 63 (46-116) U/L Total Protein 7.6 (6.4-8.2) g/dL Albumin 4.0 (3.4-5.0) g/dL Globulin 3.6 (2.6-4.0) g/dL Albumin/Globulin Ratio 1.1 (0.9-1.6) Lipase (73-393) U/L TSH 3rd Generation 2.04 (0.36-3.74) uIU/mL 08/13/18 08/13/18 Range/Units 10:18 10:18 WBC (4.0-11.0) K/uL RBC (4.30-5.90) M/uL Hgb (12.0-16.0) g/dL Hct (36.0-46.0) % MCV (80.0-98.0) fL MCH (27.0-32.0) pg MCHC (31.0-37.0) g/dL RDW Std Deviation (28.0-62.0) fl RDW Coeff of Madelyn (11.0-15.0) % Plt Count (150-400) K/uL MPV (7.40-12.00) fL Neut % (Auto) (48.0-80.0) % Lymph % (Auto) (16.0-40.0) % [place] % (Auto) (0.0-15.0) % Eos % (Auto) (0.0-7.0) % Baso % (Auto) (0.0-1.5) % Neut # (Auto) (1.4-5.7) K/uL Lymph # (Auto) (0.6-2.4) K/uL [place] # (Auto) (0.0-0.8) K/uL Eos # (Auto) (0.0-0.7) K/uL Baso # (Auto) (0.0-0.1) K/uL Nucleated RBC % /100WBC Nucleated RBCs # K/uL Sodium (136-145) mmol/L Potassium (3.5-5.1) mmol/L Chloride (98-107) mmol/L Carbon Dioxide (21.0-32.0) mmol/L BUN (7.0-18.0) mg/dL Creatinine (0.6-1.0) mg/dL Est Cr Clr Drug Dosing mL/min Estimated GFR (MDRD) ml/min Glucose (74-106) mg/dL Calcium (8.5-10.1) mg/dL Magnesium 1.8 (1.8-2.4) mg/dL Total Bilirubin (0.2-1.0) mg/dL AST (15-37) IU/L ALT (14-63) IU/L Alkaline Phosphatase (46-116) U/L Total Protein (6.4-8.2) g/dL Albumin (3.4-5.0) g/dL Globulin (2.6-4.0) g/dL Albumin/Globulin Ratio (0.9-1.6) Lipase 102 (73-393) U/L TSH 3rd Generation (0.36-3.74) uIU/mL Meds: Medications Generic Name Dose Route Start Last Admin Trade Name Freq PRN Reason Stop Dose Admin Enoxaparin Sodium 40 mg 08/13/18 12:00 08/13/18 12:46 Lovenox SUBCUT 40 mg Q24H REUBEN Administration Potassium Chloride 40 meq/ 100 mls @ 25 mls/hr 08/13/18 10:52 08/13/18 11:37 Premix IV 08/13/18 14:51 25 mls/hr ONETIME ONE Administration Sodium Chloride 1,000 mls @ 125 mls/hr 08/13/18 10:56 08/13/18 11:37 Normal Saline IV 08/13/18 18:55 125 mls/hr STAT ONE Administration Ketorolac Tromethamine 30 mg 08/13/18 11:48 Toradol IM Q6H PRN Pain (moderate 4-6) Morphine Sulfate 2 mg 08/13/18 11:48 Morphine IVPUSH 08/14/18 11:50 Q2H PRN Pain (severe 7-10) Ondansetron HCl 4 mg 08/13/18 11:48 Zofran IVPUSH Q4H PRN Nausea Discontinued Medications Generic Name Dose Route Start Last Admin Trade Name Freq PRN Reason Stop Dose Admin Sodium Chloride 1,000 mls @ 999 mls/hr 08/13/18 10:06 08/13/18 10:26 Normal Saline IV 08/13/18 11:06 999 mls/hr STAT ONE Administration Ondansetron HCl 4 mg 08/13/18 10:06 08/13/18 10:26 Zofran IVPUSH 08/13/18 10:07 4 mg ONETIME ONE Administration Sumatriptan Succinate 6 mg 08/13/18 11:55 08/13/18 12:45 Imitrex SUBCUT 08/13/18 11:56 Not Given ONETIME ONE Departure - Departure Time of Disposition: 12:49 Disposition: Refer to Observation Clinical Impression: Dehydration, History of gastric bypass, Hypokalemia - Discharge Information - My Orders Last 24 Hours: My Active Orders 08/13/18 10:06 HCG QUALITATIVE,URINE [URCHEM] Stat UA RFX RIVERA AND CULT IF INDIC [URIN] Stat 08/13/18 10:52 Potassium Chloride Riders [KCL 40 MEQ in Water 100 ML] 40 meq Premix Bag 1 bag IV ONETIME 08/13/18 10:53 EKG Documentation Completion [RC] STAT 08/13/18 10:56 Sodium Chloride 0.9% [Normal Saline] 1,000 ml IV STAT 08/13/18 11:18 Admission Status [Patient Status] [ADT] Stat - Assessment/Plan Last 24 Hours: My Active Orders 08/13/18 10:06 HCG QUALITATIVE,URINE [URCHEM] Stat UA RFX RIVERA AND CULT IF INDIC [URIN] Stat 08/13/18 10:52 Potassium Chloride Riders [KCL 40 MEQ in Water 100 ML] 40 meq Premix Bag 1 bag IV ONETIME 08/13/18 10:53 EKG Documentation Completion [RC] STAT 08/13/18 10:56 Sodium Chloride 0.9% [Normal Saline] 1,000 ml IV STAT 08/13/18 11:18 Admission Status [Patient Status] [ADT] Stat
[2018-08-13 10:45] LABS: CHLORIDE,CL 103 mmol/L (98-107); SODIUM,NA 142 mmol/L (136-145)
[2018-08-13] MEDS ORDERED: Potassium Chloride Riders 40 MEQ in Premix Bag 1 BAG IV ONE ×2 (10:52→16:39)
[2018-08-13] MEDS ORDERED: Ketorolac 30 MG/ML SDV IM PRN (11:48)
[2018-08-13] MEDS ORDERED: Morphine 10 MG/ML Syringe IVPUSH PRN (11:48)
[2018-08-13] MEDS ORDERED: SUMAtriptan 6 MG/0.5 ML SDV SUBCUT ONE (11:55)
--- NOTE | 2018-08-13 12:01 | PCM.HP ---
<Tomy Blackwood - Last Filed: 08/13/18 12:01> H&P History of Present Illness - General Date of Service: 08/13/18 Admit Problem/Dx: Admission Diagnosis/Problem Admission Diagnosis/Problem Hypokalemia - History of Present Illness Initial Comments - Free Text/Narative: 32 y/o female s/p bariatric surgery in Mar 2018 who presents today to the ER accompanied by her mother for nausea and vomiting. Patient has been feeling nauseous for the past 4-5 days, poor appetite with intermittent vomiting. No hematemesis. Denies any headache, cough, chest pain, dyspnea, abdominal pain, dysuria, diarrhea, constipation. No recent illness. States that her nausea has been on and off since her surgery. Had upper EGD performed recently about 2 weeks ago which did not show any acute finding. In addition, she tells me she has not taken her antidepressant since feeling nauseous. Did not try anti-nausea medication at home since she states it doesn' t work. Denies any alcohol consumption. No illicit drug use. In the ER, she was found to by hypokalemic K 2.8. Now receiving NS IV with KCl. States she still feels nauseous but improved from before. upper abd Pain Score (Numeric/FACES): 3 - Related Data Allergies/Adverse Reactions: Allergies Allergy/AdvReac Type Severity Reaction Status Date / Time No Known Allergies Allergy Verified 07/24/18 15:38 Home Medications: Home Meds Cyanocobalamin (Vitamin B-12) [Vitamin B-12] 08/13/18 [History] Omeprazole 08/13/18 [History] Past Medical History HEENT History: Reports: None Other HEENT History: glasses Cardiovascular History: Reports: None Respiratory History: Reports: None Gastrointestinal History: Reports: None Other Gastrointestinal History: Bariatric surgery in March Genitourinary History: Reports: None [employer]ATE History: Reports: Musculoskeletal History: Reports: None Neurological History: Reports: None Psychiatric History: Reports: None Endocrine/Metabolic History: Reports: None Hematologic History: Reports: None Immunologic History: Reports: None Oncologic (Cancer) History: Reports: None Dermatologic History: Reports: None - Infectious Disease History Infectious Disease History: Reports: Chicken Pox - Past Surgical History Head Surgeries/Procedures: Reports: None GI Surgical History: Reports: Bariatric Procedure Female Surgical History: Reports: Section, D&C Neurological Surgical History: Reports: None Social & Family History - Family History Family Medical History: Noncontributory Cardiac: Reports: Other (See Below) Other Cardiac Family History: heart disease Respiratory: Reports: Asthma Endocrine/Metabolic: Reports: Diabetes, type II Oncologic: Reports: Other (See Below) Other Oncologic Family History: did not specify type - Tobacco Use Smoking Status *Q: Never Smoker - Caffeine Use Caffeine Use: Reports: None - Recreational Drug Use Recreational Drug Use: No - Living Situation & Occupation Living situation: Reports: Occupation: Employed H&P Review of Systems - Review of Systems: Review Of Systems: ROS reveals no pertinent complaints other than HPI. Exam - Exam Exam: See Below - Vital Signs Vital Signs: Last Vital Signs Temp 36.1 C 08/13/18 09:55 Pulse 68 08/13/18 11:12 Resp 18 08/13/18 11:12 BP 105/72 08/13/18 11:12 Pulse Ox 98 08/13/18 11:12 Weight: 74.843 kg - Exam General: Alert, Oriented, Cooperative HEENT: Conjunctiva Clear, Other (dry oral mucosa) Lungs: Clear to Auscultation, Normal Respiratory Effort. No: Crackles, Wheezing Cardiovascular: Regular Rate, Regular Rhythm GI/Abdominal Exam: Normal Bowel Sounds, Soft, Non-Tender, No Organomegaly, No Distention Extremities: Normal Inspection, No Pedal Edema Skin: Warm, Dry - Patient Data Lab Results Last 24 hrs: Laboratory Results - last 24 hr 08/13/18 08/13/18 08/13/18 Range/Units 10:18 10:18 10:18 WBC 5.76 (4.0-11.0) K/uL RBC 5.73 (4.30-5.90) M/uL Hgb 15.6 (12.0-16.0) g/dL Hct 47.1 H (36.0-46.0) % MCV 82.2 (80.0-98.0) fL MCH 27.2 (27.0-32.0) pg MCHC 33.1 (31.0-37.0) g/dL RDW Std Deviation 46.4 (28.0-62.0) fl RDW Coeff of Madelyn 16 H (11.0-15.0) % Plt Count 256 (150-400) K/uL MPV 11.90 (7.40-12.00) fL Neut % (Auto) 51.9 (48.0-80.0) % Lymph % (Auto) 34.0 (16.0-40.0) % [place] % (Auto) 14.1 (0.0-15.0) % Eos % (Auto) 0.0 (0.0-7.0) % Baso % (Auto) 0.0 (0.0-1.5) % Neut # (Auto) 3.0 (1.4-5.7) K/uL Lymph # (Auto) 2.0 (0.6-2.4) K/uL [place] # (Auto) 0.8 (0.0-0.8) K/uL Eos # (Auto) 0.0 (0.0-0.7) K/uL Baso # (Auto) 0.0 (0.0-0.1) K/uL Nucleated RBC % 0.0 /100WBC Nucleated RBCs # 0 K/uL Sodium 142 (136-145) mmol/L Potassium 2.7 L (3.5-5.1) mmol/L Chloride 103 (98-107) mmol/L Carbon Dioxide 19.2 L (21.0-32.0) mmol/L BUN 5 L (7.0-18.0) mg/dL Creatinine 0.7 (0.6-1.0) mg/dL Est Cr Clr Drug Dosing 101.48 mL/min Estimated GFR (MDRD) > 60.0 ml/min Glucose 136 H (74-106) mg/dL Calcium 9.3 (8.5-10.1) mg/dL Magnesium (1.8-2.4) mg/dL Total Bilirubin 1.1 H (0.2-1.0) mg/dL AST 40 H (15-37) IU/L ALT 50 (14-63) IU/L Alkaline Phosphatase 63 (46-116) U/L Total Protein 7.6 (6.4-8.2) g/dL Albumin 4.0 (3.4-5.0) g/dL Globulin 3.6 (2.6-4.0) g/dL Albumin/Globulin Ratio 1.1 (0.9-1.6) Lipase 102 (73-393) U/L 08/13/18 Range/Units 10:18 WBC (4.0-11.0) K/uL RBC (4.30-5.90) M/uL Hgb (12.0-16.0) g/dL Hct (36.0-46.0) % MCV (80.0-98.0) fL MCH (27.0-32.0) pg MCHC (31.0-37.0) g/dL RDW Std Deviation (28.0-62.0) fl RDW Coeff of Madelyn (11.0-15.0) % Plt Count (150-400) K/uL MPV (7.40-12.00) fL Neut % (Auto) (48.0-80.0) % Lymph % (Auto) (16.0-40.0) % [place] % (Auto) (0.0-15.0) % Eos % (Auto) (0.0-7.0) % Baso % (Auto) (0.0-1.5) % Neut # (Auto) (1.4-5.7) K/uL Lymph # (Auto) (0.6-2.4) K/uL [place] # (Auto) (0.0-0.8) K/uL Eos # (Auto) (0.0-0.7) K/uL Baso # (Auto) (0.0-0.1) K/uL Nucleated RBC % /100WBC Nucleated RBCs # K/uL Sodium (136-145) mmol/L Potassium (3.5-5.1) mmol/L Chloride (98-107) mmol/L Carbon Dioxide (21.0-32.0) mmol/L BUN (7.0-18.0) mg/dL Creatinine (0.6-1.0) mg/dL Est Cr Clr Drug Dosing mL/min Estimated GFR (MDRD) ml/min Glucose (74-106) mg/dL Calcium (8.5-10.1) mg/dL Magnesium 1.8 (1.8-2.4) mg/dL Total Bilirubin (0.2-1.0) mg/dL AST (15-37) IU/L ALT (14-63) IU/L Alkaline Phosphatase (46-116) U/L Total Protein (6.4-8.2) g/dL Albumin (3.4-5.0) g/dL Globulin (2.6-4.0) g/dL Albumin/Globulin Ratio (0.9-1.6) Lipase (73-393) U/L Result Diagrams: 08/13/18 10:18 08/13/18 10:18 Problem List Initiated/Reviewed/Updated: Yes Orders Last 24hrs: Active Orders 24 hr Category Date Time Status Admission Status [Patient Status] [ADT] Stat ADT 08/13/18 11:18 Active EKG Documentation Completion [RC] STAT Care 08/13/18 10:53 Active Intake and Output [RC] QSHIFT Care 08/13/18 11:49 Ordered Oxygen Therapy [RC] PRN Care 08/13/18 11:48 Ordered Up ad [place] [RC] ASDIRECTED Care 08/13/18 11:48 Ordered VTE/DVT Education [RC] PER UNIT ROUTINE Care 08/13/18 11:48 Ordered Vital Signs [RC] Q4H Care 08/13/18 11:48 Ordered Nothing per Oral Now Diet [DIET] Diet 08/13/18 Dinner Ordered DRUG SCREEN, URINE [URCHEM] Routine Lab 08/13/18 11:52 Ordered HCG QUALITATIVE,URINE [URCHEM] Stat Lab 08/13/18 10:06 Ordered TSH [CHEM] Routine Lab 08/13/18 11:52 Ordered UA RFX RIVERA AND CULT IF INDIC [URIN] Stat Lab 08/13/18 10:06 Ordered Enoxaparin [Lovenox] Med 08/13/18 12:00 Ordered 40 mg SUBCUT Q24H Ketorolac [Toradol] Med 08/13/18 11:48 Ordered 30 mg IM Q6H PRN Morphine Med 08/13/18 11:48 Ordered 2 mg IVPUSH Q2H PRN Ondansetron [Zofran] Med 08/13/18 11:48 Ordered 4 mg IVPUSH Q4H PRN Potassium Chloride Riders [KCL 40 MEQ in Water 100 ML] Med 08/13/18 10:52 Active 40 meq Premix Bag 1 bag IV ONETIME SUMAtriptan [Imitrex] Med 08/13/18 11:55 Once 6 mg SUBCUT ONETIME ONE Sodium Chloride 0.9% [Normal Saline] 1,000 ml Med 08/13/18 10:56 Active IV STAT Resuscitation Status Routine Resus Stat 08/13/18 11:48 Ordered Medication Orders Enoxaparin Sodium (Lovenox) 40 mg SUBCUT Q24H REUBEN Potassium Chloride 40 meq/ (Premix) 100 mls @ 25 mls/hr IV ONETIME ONE Stop: 08/13/18 14:51 Last Admin: 08/13/18 11:37 Dose: 25 mls/hr Sodium Chloride (Normal Saline) 1,000 mls @ 125 mls/hr IV STAT ONE Stop: 08/13/18 18:55 Last Admin: 08/13/18 11:37 Dose: 125 mls/hr Ketorolac Tromethamine (Toradol) 30 mg IM Q6H PRN PRN Reason: Pain (moderate 4-6) Morphine Sulfate (Morphine) 2 mg IVPUSH Q2H PRN PRN Reason: Pain (severe 7-10) Stop: 08/14/18 11:50 Ondansetron HCl (Zofran) 4 mg IVPUSH Q4H PRN PRN Reason: Nausea Sumatriptan Succinate (Imitrex) 6 mg SUBCUT ONETIME ONE Stop: 08/13/18 11:56 Assessment/Plan Comment:: A: 1. Intractable nausea, vomiting 2. Hypokalemia 3. PMH bariatric surgery, depression, anxiety P: 1. Intractable nausea,vomiting- NPO for now. Zofran PRN. Will check urine drug screen and TSH. Will try sumatriptan for possible migraine and see if that helps. 2. Hypokalemia-getting NS+ 40 mEq in the ER. Will recheck and replete as needed. 3. HX depression, anxiety- will hold her PO meds for now until nausea, vomiting improved. Dispo: 1-2 days <Roosevelt Blackman - Last Filed: 08/13/18 14:26> H&P History of Present Illness - General Admit Problem/Dx: Admission Diagnosis/Problem Admission Diagnosis/Problem Hypokalemia I have seen and examined to patient independently of medical pathology teacher, Tomy Manzano MD. I have discussed the case for care of this patient with him. I have reviewed and approve of the plan of care as outlined by medical pathology teacher. Please see orders. Exam - Vital Signs Vital Signs: Last Vital Signs Temp 35.6 C 08/13/18 12:00 Pulse 81 08/13/18 12:00 Resp 17 08/13/18 12:00 BP 112/75 08/13/18 12:00 Pulse Ox 99 08/13/18 12:00 - Patient Data Lab Results Last 24 hrs: Laboratory Results - last 24 hr 08/13/18 08/13/18 08/13/18 Range/Units 10:15 10:18 10:18 WBC 5.76 (4.0-11.0) K/uL RBC 5.73 (4.30-5.90) M/uL Hgb 15.6 (12.0-16.0) g/dL Hct 47.1 H (36.0-46.0) % MCV 82.2 (80.0-98.0) fL MCH 27.2 (27.0-32.0) pg MCHC 33.1 (31.0-37.0) g/dL RDW Std Deviation 46.4 (28.0-62.0) fl RDW Coeff of Madelyn 16 H (11.0-15.0) % Plt Count 256 (150-400) K/uL MPV 11.90 (7.40-12.00) fL Neut % (Auto) 51.9 (48.0-80.0) % Lymph % (Auto) 34.0 (16.0-40.0) % [place] % (Auto) 14.1 (0.0-15.0) % Eos % (Auto) 0.0 (0.0-7.0) % Baso % (Auto) 0.0 (0.0-1.5) % Neut # (Auto) 3.0 (1.4-5.7) K/uL Lymph # (Auto) 2.0 (0.6-2.4) K/uL [place] # (Auto) 0.8 (0.0-0.8) K/uL Eos # (Auto) 0.0 (0.0-0.7) K/uL Baso # (Auto) 0.0 (0.0-0.1) K/uL Nucleated RBC % 0.0 /100WBC Nucleated RBCs # 0 K/uL Sodium 142 (136-145) mmol/L Potassium 2.7 L (3.5-5.1) mmol/L Chloride 103 (98-107) mmol/L Carbon Dioxide 19.2 L (21.0-32.0) mmol/L BUN 5 L (7.0-18.0) mg/dL Creatinine 0.7 (0.6-1.0) mg/dL Est Cr Clr Drug Dosing 101.48 mL/min Estimated GFR (MDRD) > 60.0 ml/min Glucose 136 H (74-106) mg/dL Calcium 9.3 (8.5-10.1) mg/dL Magnesium (1.8-2.4) mg/dL Total Bilirubin 1.1 H (0.2-1.0) mg/dL AST 40 H (15-37) IU/L ALT 50 (14-63) IU/L Alkaline Phosphatase 63 (46-116) U/L Total Protein 7.6 (6.4-8.2) g/dL Albumin 4.0 (3.4-5.0) g/dL Globulin 3.6 (2.6-4.0) g/dL Albumin/Globulin Ratio 1.1 (0.9-1.6) Lipase (73-393) U/L TSH 3rd Generation 2.04 (0.36-3.74) uIU/mL Urine Color Urine Appearance Urine pH (5.0-8.0) Ur Specific [place] (1.001-1.035) Urine Protein (NEGATIVE) mg/dL Urine Glucose (UA) (NEGATIVE) mg/dL Urine Ketones (NEGATIVE) mg/dL Urine Occult Blood (NEGATIVE) Urine Nitrite (NEGATIVE) Urine Bilirubin (NEGATIVE) Urine Ictotest Urine Urobilinogen (<2.0) EU/dL Ur Leukocyte Esterase (NEGATIVE) Urine RBC (0-2/HPF) Urine WBC (0-5/HPF) Ur Epithelial Cells (NONE-FEW) Amorphous Sediment (NEGATIVE) Urine Bacteria (NEGATIVE) Urine Mucus (NONE-MOD) Urine HCG, Qual (NEGATIVE) Urine Opiates Screen (NEGATIVE) Ur Oxycodone Screen (NEGATIVE) Urine Methadone Screen (NEGATIVE) Ur Barbiturates Screen (NEGATIVE) Ur Phencyclidine Scrn (NEGATIVE) Ur Amphetamine Screen (NEGATIVE) U Methamphetamines Scrn (NEGATIVE) U Benzodiazepines Scrn (NEGATIVE) U Cocaine Metab Screen (NEGATIVE) U Marijuana (THC) Screen (NEGATIVE) 08/13/18 08/13/18 08/13/18 Range/Units 10:18 10:18 14:00 WBC (4.0-11.0) K/uL RBC (4.30-5.90) M/uL Hgb (12.0-16.0) g/dL Hct (36.0-46.0) % MCV (80.0-98.0) fL MCH (27.0-32.0) pg MCHC (31.0-37.0) g/dL RDW Std Deviation (28.0-62.0) fl RDW Coeff of Madelyn (11.0-15.0) % Plt Count (150-400) K/uL MPV (7.40-12.00) fL Neut % (Auto) (48.0-80.0) % Lymph % (Auto) (16.0-40.0) % [place] % (Auto) (0.0-15.0) % Eos % (Auto) (0.0-7.0) % Baso % (Auto) (0.0-1.5) % Neut # (Auto) (1.4-5.7) K/uL Lymph # (Auto) (0.6-2.4) K/uL [place] # (Auto) (0.0-0.8) K/uL Eos # (Auto) (0.0-0.7) K/uL Baso # (Auto) (0.0-0.1) K/uL Nucleated RBC % /100WBC Nucleated RBCs # K/uL Sodium (136-145) mmol/L Potassium (3.5-5.1) mmol/L Chloride (98-107) mmol/L Carbon Dioxide (21.0-32.0) mmol/L BUN (7.0-18.0) mg/dL Creatinine (0.6-1.0) mg/dL Est Cr Clr Drug Dosing mL/min Estimated GFR (MDRD) ml/min Glucose (74-106) mg/dL Calcium (8.5-10.1) mg/dL Magnesium 1.8 (1.8-2.4) mg/dL Total Bilirubin (0.2-1.0) mg/dL AST (15-37) IU/L ALT (14-63) IU/L Alkaline Phosphatase (46-116) U/L Total Protein (6.4-8.2) g/dL Albumin (3.4-5.0) g/dL Globulin (2.6-4.0) g/dL Albumin/Globulin Ratio (0.9-1.6) Lipase 102 (73-393) U/L TSH 3rd Generation (0.36-3.74) uIU/mL Urine Color DARK YELLOW Urine Appearance CLOUDY Urine pH 6.0 (5.0-8.0) Ur Specific [place] >= 1.030 (1.001-1.035) Urine Protein 30 H (NEGATIVE) mg/dL Urine Glucose (UA) NEGATIVE (NEGATIVE) mg/dL Urine Ketones >=80 (NEGATIVE) mg/dL Urine Occult Blood MODERATE H (NEGATIVE) Urine Nitrite NEGATIVE (NEGATIVE) Urine Bilirubin MODERATE H (NEGATIVE) Urine Ictotest POSITIVE Urine Urobilinogen 0.2 (<2.0) EU/dL Ur Leukocyte Esterase MODERATE H (NEGATIVE) Urine RBC 10-15 (0-2/HPF) Urine WBC 30-40 (0-5/HPF) Ur Epithelial Cells MODERATE (NONE-FEW) Amorphous Sediment LIGHT (NEGATIVE) Urine Bacteria 1+ H (NEGATIVE) Urine Mucus LIGHT (NONE-MOD) Urine HCG, Qual (NEGATIVE) Urine Opiates Screen (NEGATIVE) Ur Oxycodone Screen (NEGATIVE) Urine Methadone Screen (NEGATIVE) Ur Barbiturates Screen (NEGATIVE) Ur Phencyclidine Scrn (NEGATIVE) Ur Amphetamine Screen (NEGATIVE) U Methamphetamines Scrn (NEGATIVE) U Benzodiazepines Scrn (NEGATIVE) U Cocaine Metab Screen (NEGATIVE) U Marijuana (THC) Screen (NEGATIVE) 08/13/18 08/13/18 Range/Units 14:00 14:00 WBC (4.0-11.0) K/uL RBC (4.30-5.90) M/uL Hgb (12.0-16.0) g/dL Hct (36.0-46.0) % MCV (80.0-98.0) fL MCH (27.0-32.0) pg MCHC (31.0-37.0) g/dL RDW Std Deviation (28.0-62.0) fl RDW Coeff of Madelyn (11.0-15.0) % Plt Count (150-400) K/uL MPV (7.40-12.00) fL Neut % (Auto) (48.0-80.0) % Lymph % (Auto) (16.0-40.0) % [place] % (Auto) (0.0-15.0) % Eos % (Auto) (0.0-7.0) % Baso % (Auto) (0.0-1.5) % Neut # (Auto) (1.4-5.7) K/uL Lymph # (Auto) (0.6-2.4) K/uL [place] # (Auto) (0.0-0.8) K/uL Eos # (Auto) (0.0-0.7) K/uL Baso # (Auto) (0.0-0.1) K/uL Nucleated RBC % /100WBC Nucleated RBCs # K/uL Sodium (136-145) mmol/L Potassium (3.5-5.1) mmol/L Chloride (98-107) mmol/L Carbon Dioxide (21.0-32.0) mmol/L BUN (7.0-18.0) mg/dL Creatinine (0.6-1.0) mg/dL Est Cr Clr Drug Dosing mL/min Estimated GFR (MDRD) ml/min Glucose (74-106) mg/dL Calcium (8.5-10.1) mg/dL Magnesium (1.8-2.4) mg/dL Total Bilirubin (0.2-1.0) mg/dL AST (15-37) IU/L ALT (14-63) IU/L Alkaline Phosphatase (46-116) U/L Total Protein (6.4-8.2) g/dL Albumin (3.4-5.0) g/dL Globulin (2.6-4.0) g/dL Albumin/Globulin Ratio (0.9-1.6) Lipase (73-393) U/L TSH 3rd Generation (0.36-3.74) uIU/mL Urine Color Urine Appearance Urine pH (5.0-8.0) Ur Specific [place] (1.001-1.035) Urine Protein (NEGATIVE) mg/dL Urine Glucose (UA) (NEGATIVE) mg/dL Urine Ketones (NEGATIVE) mg/dL Urine Occult Blood (NEGATIVE) Urine Nitrite (NEGATIVE) Urine Bilirubin (NEGATIVE) Urine Ictotest Urine Urobilinogen (<2.0) EU/dL Ur Leukocyte Esterase (NEGATIVE) Urine RBC (0-2/HPF) Urine WBC (0-5/HPF) Ur Epithelial Cells (NONE-FEW) Amorphous Sediment (NEGATIVE) Urine Bacteria (NEGATIVE) Urine Mucus (NONE-MOD) Urine HCG, Qual NEGATIVE (NEGATIVE) Urine Opiates Screen NEGATIVE (NEGATIVE) Ur Oxycodone Screen NEGATIVE (NEGATIVE) Urine Methadone Screen NEGATIVE (NEGATIVE) Ur Barbiturates Screen NEGATIVE (NEGATIVE) Ur Phencyclidine Scrn NEGATIVE (NEGATIVE) Ur Amphetamine Screen NEGATIVE (NEGATIVE) U Methamphetamines Scrn NEGATIVE (NEGATIVE) U Benzodiazepines Scrn NEGATIVE (NEGATIVE) U Cocaine Metab Screen NEGATIVE (NEGATIVE) U Marijuana (THC) Screen NEGATIVE (NEGATIVE) Result Diagrams: 08/13/18 10:18 08/13/18 10:18 Orders Last 24hrs: Active Orders 24 hr Category Date Time Status Admission Status [Patient Status] [ADT] Stat ADT 08/13/18 11:18 Active EKG Documentation Completion [RC] STAT Care 08/13/18 10:53 Active Intake and Output [RC] Q12H Care 08/13/18 11:49 Active Oxygen Therapy [RC] PRN Care 08/13/18 11:48 Active Up ad [place] [RC] ASDIRECTED Care 08/13/18 11:48 Active VTE/DVT Education [RC] PER UNIT ROUTINE Care 08/13/18 11:48 Active Vital Signs [RC] Q4H Care 08/13/18 11:48 Active Nothing per Oral Now Diet [DIET] Diet 08/13/18 Dinner Active CULTURE URINE [RM] Stat Lab 08/13/18 14:00 Received Enoxaparin [Lovenox] Med 08/13/18 12:00 Active 40 mg SUBCUT Q24H Ketorolac [Toradol] Med 08/13/18 11:48 Active 30 mg IM Q6H PRN Morphine Med 08/13/18 11:48 Active 2 mg IVPUSH Q2H PRN Ondansetron [Zofran] Med 08/13/18 11:48 Active 4 mg IVPUSH Q4H PRN Potassium Chloride Riders [KCL 40 MEQ in Water 100 ML] Med 08/13/18 10:52 Active 40 meq Premix Bag 1 bag IV ONETIME Sodium Chloride 0.9% [Normal Saline] 1,000 ml Med 08/13/18 10:56 Active IV STAT Resuscitation Status Routine Resus Stat 08/13/18 11:48 Ordered Medication Orders Enoxaparin Sodium (Lovenox) 40 mg SUBCUT Q24H REUBEN Last Admin: 08/13/18 12:46 Dose: 40 mg Potassium Chloride 40 meq/ (Premix) 100 mls @ 25 mls/hr IV ONETIME ONE Stop: 08/13/18 14:51 Last Admin: 08/13/18 11:37 Dose: 25 mls/hr Sodium Chloride (Normal Saline) 1,000 mls @ 125 mls/hr IV STAT ONE Stop: 08/13/18 18:55 Last Admin: 08/13/18 11:37 Dose: 125 mls/hr Ketorolac Tromethamine (Toradol) 30 mg IM Q6H PRN PRN Reason: Pain (moderate 4-6) Morphine Sulfate (Morphine) 2 mg IVPUSH Q2H PRN PRN Reason: Pain (severe 7-10) Stop: 08/14/18 11:50 Ondansetron HCl (Zofran) 4 mg IVPUSH Q4H PRN PRN Reason: Nausea
[2018-08-13] MEDS: Enoxaparin 40 MG/0.4 ML Syringe SUBCUT SCH (12:46)
--- NOTE | 2018-08-13 12:49 | CR ---
Indication: Vomiting. Technique: AP portable upright view of the abdomen was obtained. Comparison: None Findings: High-density material is identified within the ascending colon. The bowel gas pattern is nonobstructive. No free air is identified. The pelvis is not included on the study. Impression: Nonobstructive bowel gas pattern. No free air. Dictated by Jigna Thomas MD @ Aug 13 2018 12:47PM Signed by Dr. Jigna Thomas @ Aug 13 2018 12:48PM
[2018-08-13] MEDS: cefTRIAXone 1 GM in Premix Bag 1 BAG IV SCH (15:07)
[2018-08-13] MEDS: Ondansetron 4 MG/2 ML SDV IVPUSH PRN (19:26)
[2018-08-13] MEDS: Sodium Chloride 0.9% 1,000 ML IV SCH (21:46)
[2018-08-14] MEDS: Omeprazole 20 MG Cap.CR PO ONE ×2 (01:36→04:55)
[2018-08-14] MEDS: Sodium Chloride 0.9% 1,000 ML IV SCH (05:41)
[2018-08-14] MEDS: Ondansetron 4 MG/2 ML SDV IVPUSH PRN ×4 (05:49→21:17)
[2018-08-14 06:38] LABS: CHLORIDE,CL 114 mmol/L (98-107); SODIUM,NA 148 mmol/L (136-145)
[2018-08-14] MEDS ORDERED: Morphine 2 MG/ML Syringe IVPUSH PRN (07:23)
[2018-08-14] MEDS ORDERED: Pantoprazole 40 MG in Sodium Chloride 0.9% 100 ML IVPUSH SCH (08:00)
[2018-08-14] MEDS ORDERED: Potassium Chloride 40 MEQ in Dextrose 5% in Water 1,000 ML IV SCH ×2 (08:00)
[2018-08-14] MEDS ORDERED: Pantoprazole 40 MG Vial IV SCH (08:15)
--- NOTE | 2018-08-14 08:16 | PCM.PN ---
<Steff Wood M - Last Filed: 08/14/18 09:10> - General Info Date of Service: 08/14/18 Admission Dx/Problem (Free Text): Admission Diagnosis/Problem Admission Diagnosis/Problem Hypokalemia, N/V Subjective Update: Continues to have pain when eating, points to esophagus up and down and nauseated. No chest pain or SOB. taking very limits fluids in. Functional Status: Reports: Ambulating, Urinating. Denies: Pain Controlled, Tolerating Diet - Review of Systems General: Reports: Malaise HEENT: Reports: No Symptoms. Denies: Headaches, Sore Throat Pulmonary: Reports: No Symptoms. Denies: Shortness of Breath Cardiovascular: Reports: No Symptoms. Denies: Chest Pain Gastrointestinal: Reports: Abdominal Pain (more GERD like symptoms), Decreased Appetite, Nausea. Denies: Vomiting Genitourinary: Reports: No Symptoms. Denies: Dysuria, Frequency, Burning Musculoskeletal: Reports: No Symptoms Skin: Reports: No Symptoms Neurological: Reports: No Symptoms Psychiatric: Reports: No Symptoms - Patient Data Vitals - Most Recent: Last Vital Signs Temp 96.6 F 08/14/18 07:40 Pulse 60 08/14/18 07:40 Resp 16 08/14/18 07:40 BP 103/64 08/14/18 07:40 Pulse Ox 100 08/14/18 07:40 Weight - Most Recent: 74.843 kg I&O - Last 24 Hours: Intake & Output 08/13/18 08/14/18 08/14/18 22:59 06:59 14:59 Intake Total 637 1706 Output Total 100 200 Balance 537 1506 Lab Results Last 24 Hours: Laboratory Results - last 24 hr 08/13/18 08/13/18 08/13/18 Range/Units 10:15 10:15 10:18 WBC 5.76 (4.0-11.0) K/uL RBC 5.73 (4.30-5.90) M/uL Hgb 15.6 (12.0-16.0) g/dL Hct 47.1 H (36.0-46.0) % MCV 82.2 (80.0-98.0) fL MCH 27.2 (27.0-32.0) pg MCHC 33.1 (31.0-37.0) g/dL RDW Std Deviation 46.4 (28.0-62.0) fl RDW Coeff of Madelyn 16 H (11.0-15.0) % Plt Count 256 (150-400) K/uL MPV 11.90 (7.40-12.00) fL Neut % (Auto) 51.9 (48.0-80.0) % Lymph % (Auto) 34.0 (16.0-40.0) % [place] % (Auto) 14.1 (0.0-15.0) % Eos % (Auto) 0.0 (0.0-7.0) % Baso % (Auto) 0.0 (0.0-1.5) % Neut # (Auto) 3.0 (1.4-5.7) K/uL Lymph # (Auto) 2.0 (0.6-2.4) K/uL [place] # (Auto) 0.8 (0.0-0.8) K/uL Eos # (Auto) 0.0 (0.0-0.7) K/uL Baso # (Auto) 0.0 (0.0-0.1) K/uL Nucleated RBC % 0.0 /100WBC Nucleated RBCs # 0 K/uL Sodium (136-145) mmol/L Potassium (3.5-5.1) mmol/L Chloride (98-107) mmol/L Carbon Dioxide (21.0-32.0) mmol/L BUN (7.0-18.0) mg/dL Creatinine (0.6-1.0) mg/dL Est Cr Clr Drug Dosing mL/min Estimated GFR (MDRD) ml/min Glucose (74-106) mg/dL Calcium (8.5-10.1) mg/dL Magnesium (1.8-2.4) mg/dL Total Bilirubin (0.2-1.0) mg/dL AST (15-37) IU/L ALT (14-63) IU/L Alkaline Phosphatase (46-116) U/L Total Protein (6.4-8.2) g/dL Albumin (3.4-5.0) g/dL Globulin (2.6-4.0) g/dL Albumin/Globulin Ratio (0.9-1.6) Triglycerides 98 (0-200) mg/dL Cholesterol 195 (50-200) mg/dL LDL Cholesterol, Calc 132 (60-180) mg/dL VLDL Cholesterol 19 (5-55) mg/dL HDL Cholesterol 43 (40-60) mg/dL Cholesterol/HDL Ratio 4.5 (3.3-6.0) Lipase (73-393) U/L TSH 3rd Generation 2.04 (0.36-3.74) uIU/mL Urine Color Urine Appearance Urine pH (5.0-8.0) Ur Specific [place] (1.001-1.035) Urine Protein (NEGATIVE) mg/dL Urine Glucose (UA) (NEGATIVE) mg/dL Urine Ketones (NEGATIVE) mg/dL Urine Occult Blood (NEGATIVE) Urine Nitrite (NEGATIVE) Urine Bilirubin (NEGATIVE) Urine Ictotest Urine Urobilinogen (<2.0) EU/dL Ur Leukocyte Esterase (NEGATIVE) Urine RBC (0-2/HPF) Urine WBC (0-5/HPF) Ur Epithelial Cells (NONE-FEW) Amorphous Sediment (NEGATIVE) Urine Bacteria (NEGATIVE) Urine Mucus (NONE-MOD) Urine HCG, Qual (NEGATIVE) Urine Opiates Screen (NEGATIVE) Ur Oxycodone Screen (NEGATIVE) Urine Methadone Screen (NEGATIVE) Ur Barbiturates Screen (NEGATIVE) Ur Phencyclidine Scrn (NEGATIVE) Ur Amphetamine Screen (NEGATIVE) U Methamphetamines Scrn (NEGATIVE) U Benzodiazepines Scrn (NEGATIVE) U Cocaine Metab Screen (NEGATIVE) U Marijuana (THC) Screen (NEGATIVE) 08/13/18 08/13/18 08/13/18 Range/Units 10:18 10:18 10:18 WBC (4.0-11.0) K/uL RBC (4.30-5.90) M/uL Hgb (12.0-16.0) g/dL Hct (36.0-46.0) % MCV (80.0-98.0) fL MCH (27.0-32.0) pg MCHC (31.0-37.0) g/dL RDW Std Deviation (28.0-62.0) fl RDW Coeff of Madelyn (11.0-15.0) % Plt Count (150-400) K/uL MPV (7.40-12.00) fL Neut % (Auto) (48.0-80.0) % Lymph % (Auto) (16.0-40.0) % [place] % (Auto) (0.0-15.0) % Eos % (Auto) (0.0-7.0) % Baso % (Auto) (0.0-1.5) % Neut # (Auto) (1.4-5.7) K/uL Lymph # (Auto) (0.6-2.4) K/uL [place] # (Auto) (0.0-0.8) K/uL Eos # (Auto) (0.0-0.7) K/uL Baso # (Auto) (0.0-0.1) K/uL Nucleated RBC % /100WBC Nucleated RBCs # K/uL Sodium 142 (136-145) mmol/L Potassium 2.7 L (3.5-5.1) mmol/L Chloride 103 (98-107) mmol/L Carbon Dioxide 19.2 L (21.0-32.0) mmol/L BUN 5 L (7.0-18.0) mg/dL Creatinine 0.7 (0.6-1.0) mg/dL Est Cr Clr Drug Dosing 101.48 mL/min Estimated GFR (MDRD) > 60.0 ml/min Glucose 136 H (74-106) mg/dL Calcium 9.3 (8.5-10.1) mg/dL Magnesium 1.8 (1.8-2.4) mg/dL Total Bilirubin 1.1 H (0.2-1.0) mg/dL AST 40 H (15-37) IU/L ALT 50 (14-63) IU/L Alkaline Phosphatase 63 (46-116) U/L Total Protein 7.6 (6.4-8.2) g/dL Albumin 4.0 (3.4-5.0) g/dL Globulin 3.6 (2.6-4.0) g/dL Albumin/Globulin Ratio 1.1 (0.9-1.6) Triglycerides (0-200) mg/dL Cholesterol (50-200) mg/dL LDL Cholesterol, Calc (60-180) mg/dL VLDL Cholesterol (5-55) mg/dL HDL Cholesterol (40-60) mg/dL Cholesterol/HDL Ratio (3.3-6.0) Lipase 102 (73-393) U/L TSH 3rd Generation (0.36-3.74) uIU/mL Urine Color Urine Appearance Urine pH (5.0-8.0) Ur Specific [place] (1.001-1.035) Urine Protein (NEGATIVE) mg/dL Urine Glucose (UA) (NEGATIVE) mg/dL Urine Ketones (NEGATIVE) mg/dL Urine Occult Blood (NEGATIVE) Urine Nitrite (NEGATIVE) Urine Bilirubin (NEGATIVE) Urine Ictotest Urine Urobilinogen (<2.0) EU/dL Ur Leukocyte Esterase (NEGATIVE) Urine RBC (0-2/HPF) Urine WBC (0-5/HPF) Ur Epithelial Cells (NONE-FEW) Amorphous Sediment (NEGATIVE) Urine Bacteria (NEGATIVE) Urine Mucus (NONE-MOD) Urine HCG, Qual (NEGATIVE) Urine Opiates Screen (NEGATIVE) Ur Oxycodone Screen (NEGATIVE) Urine Methadone Screen (NEGATIVE) Ur Barbiturates Screen (NEGATIVE) Ur Phencyclidine Scrn (NEGATIVE) Ur Amphetamine Screen (NEGATIVE) U Methamphetamines Scrn (NEGATIVE) U Benzodiazepines Scrn (NEGATIVE) U Cocaine Metab Screen (NEGATIVE) U Marijuana (THC) Screen (NEGATIVE) 08/13/18 08/13/18 08/13/18 Range/Units 14:00 14:00 14:00 WBC (4.0-11.0) K/uL RBC (4.30-5.90) M/uL Hgb (12.0-16.0) g/dL Hct (36.0-46.0) % MCV (80.0-98.0) fL MCH (27.0-32.0) pg MCHC (31.0-37.0) g/dL RDW Std Deviation (28.0-62.0) fl RDW Coeff of Madelyn (11.0-15.0) % Plt Count (150-400) K/uL MPV (7.40-12.00) fL Neut % (Auto) (48.0-80.0) % Lymph % (Auto) (16.0-40.0) % [place] % (Auto) (0.0-15.0) % Eos % (Auto) (0.0-7.0) % Baso % (Auto) (0.0-1.5) % Neut # (Auto) (1.4-5.7) K/uL Lymph # (Auto) (0.6-2.4) K/uL [place] # (Auto) (0.0-0.8) K/uL Eos # (Auto) (0.0-0.7) K/uL Baso # (Auto) (0.0-0.1) K/uL Nucleated RBC % /100WBC Nucleated RBCs # K/uL Sodium (136-145) mmol/L Potassium (3.5-5.1) mmol/L Chloride (98-107) mmol/L Carbon Dioxide (21.0-32.0) mmol/L BUN (7.0-18.0) mg/dL Creatinine (0.6-1.0) mg/dL Est Cr Clr Drug Dosing mL/min Estimated GFR (MDRD) ml/min Glucose (74-106) mg/dL Calcium (8.5-10.1) mg/dL Magnesium (1.8-2.4) mg/dL Total Bilirubin (0.2-1.0) mg/dL AST (15-37) IU/L ALT (14-63) IU/L Alkaline Phosphatase (46-116) U/L Total Protein (6.4-8.2) g/dL Albumin (3.4-5.0) g/dL Globulin (2.6-4.0) g/dL Albumin/Globulin Ratio (0.9-1.6) Triglycerides (0-200) mg/dL Cholesterol (50-200) mg/dL LDL Cholesterol, Calc (60-180) mg/dL VLDL Cholesterol (5-55) mg/dL HDL Cholesterol (40-60) mg/dL Cholesterol/HDL Ratio (3.3-6.0) Lipase (73-393) U/L TSH 3rd Generation (0.36-3.74) uIU/mL Urine Color DARK YELLOW Urine Appearance CLOUDY Urine pH 6.0 (5.0-8.0) Ur Specific [place] >= 1.030 (1.001-1.035) Urine Protein 30 H (NEGATIVE) mg/dL Urine Glucose (UA) NEGATIVE (NEGATIVE) mg/dL Urine Ketones >=80 (NEGATIVE) mg/dL Urine Occult Blood MODERATE H (NEGATIVE) Urine Nitrite NEGATIVE (NEGATIVE) Urine Bilirubin MODERATE H (NEGATIVE) Urine Ictotest POSITIVE Urine Urobilinogen 0.2 (<2.0) EU/dL Ur Leukocyte Esterase MODERATE H (NEGATIVE) Urine RBC 10-15 (0-2/HPF) Urine WBC 30-40 (0-5/HPF) Ur Epithelial Cells MODERATE (NONE-FEW) Amorphous Sediment LIGHT (NEGATIVE) Urine Bacteria 1+ H (NEGATIVE) Urine Mucus LIGHT (NONE-MOD) Urine HCG, Qual NEGATIVE (NEGATIVE) Urine Opiates Screen NEGATIVE (NEGATIVE) Ur Oxycodone Screen NEGATIVE (NEGATIVE) Urine Methadone Screen NEGATIVE (NEGATIVE) Ur Barbiturates Screen NEGATIVE (NEGATIVE) Ur Phencyclidine Scrn NEGATIVE (NEGATIVE) Ur Amphetamine Screen NEGATIVE (NEGATIVE) U Methamphetamines Scrn NEGATIVE (NEGATIVE) U Benzodiazepines Scrn NEGATIVE (NEGATIVE) U Cocaine Metab Screen NEGATIVE (NEGATIVE) U Marijuana (THC) Screen NEGATIVE (NEGATIVE) 08/14/18 08/14/18 Range/Units 05:26 05:26 WBC 3.68 L (4.0-11.0) K/uL RBC 4.56 (4.30-5.90) M/uL Hgb 12.1 (12.0-16.0) g/dL Hct 38.5 (36.0-46.0) % MCV 84.4 (80.0-98.0) fL MCH 26.5 L (27.0-32.0) pg MCHC 31.4 (31.0-37.0) g/dL RDW Std Deviation 48.2 (28.0-62.0) fl RDW Coeff of Madelyn 16 H (11.0-15.0) % Plt Count 194 (150-400) K/uL MPV 11.50 (7.40-12.00) fL Neut % (Auto) (48.0-80.0) % Lymph % (Auto) (16.0-40.0) % [place] % (Auto) (0.0-15.0) % Eos % (Auto) (0.0-7.0) % Baso % (Auto) (0.0-1.5) % Neut # (Auto) (1.4-5.7) K/uL Lymph # (Auto) (0.6-2.4) K/uL [place] # (Auto) (0.0-0.8) K/uL Eos # (Auto) (0.0-0.7) K/uL Baso # (Auto) (0.0-0.1) K/uL Nucleated RBC % 0.0 /100WBC Nucleated RBCs # 0 K/uL Sodium 148 H (136-145) mmol/L Potassium 3.1 L (3.5-5.1) mmol/L Chloride 114 H (98-107) mmol/L Carbon Dioxide 22.9 (21.0-32.0) mmol/L BUN 4 L (7.0-18.0) mg/dL Creatinine 0.5 L (0.6-1.0) mg/dL Est Cr Clr Drug Dosing 142.07 mL/min Estimated GFR (MDRD) > 60.0 ml/min Glucose 82 (74-106) mg/dL Calcium 8.5 (8.5-10.1) mg/dL Magnesium (1.8-2.4) mg/dL Total Bilirubin (0.2-1.0) mg/dL AST (15-37) IU/L ALT (14-63) IU/L Alkaline Phosphatase (46-116) U/L Total Protein (6.4-8.2) g/dL Albumin (3.4-5.0) g/dL Globulin (2.6-4.0) g/dL Albumin/Globulin Ratio (0.9-1.6) Triglycerides (0-200) mg/dL Cholesterol (50-200) mg/dL LDL Cholesterol, Calc (60-180) mg/dL VLDL Cholesterol (5-55) mg/dL HDL Cholesterol (40-60) mg/dL Cholesterol/HDL Ratio (3.3-6.0) Lipase (73-393) U/L TSH 3rd Generation (0.36-3.74) uIU/mL Urine Color Urine Appearance Urine pH (5.0-8.0) Ur Specific [place] (1.001-1.035) Urine Protein (NEGATIVE) mg/dL Urine Glucose (UA) (NEGATIVE) mg/dL Urine Ketones (NEGATIVE) mg/dL Urine Occult Blood (NEGATIVE) Urine Nitrite (NEGATIVE) Urine Bilirubin (NEGATIVE) Urine Ictotest Urine Urobilinogen (<2.0) EU/dL Ur Leukocyte Esterase (NEGATIVE) Urine RBC (0-2/HPF) Urine WBC (0-5/HPF) Ur Epithelial Cells (NONE-FEW) Amorphous Sediment (NEGATIVE) Urine Bacteria (NEGATIVE) Urine Mucus (NONE-MOD) Urine HCG, Qual (NEGATIVE) Urine Opiates Screen (NEGATIVE) Ur Oxycodone Screen (NEGATIVE) Urine Methadone Screen (NEGATIVE) Ur Barbiturates Screen (NEGATIVE) Ur Phencyclidine Scrn (NEGATIVE) Ur Amphetamine Screen (NEGATIVE) U Methamphetamines Scrn (NEGATIVE) U Benzodiazepines Scrn (NEGATIVE) U Cocaine Metab Screen (NEGATIVE) U Marijuana (THC) Screen (NEGATIVE) Med Orders - Current: Current Medications Enoxaparin Sodium (Lovenox) 40 mg SUBCUT Q24H [facility] Last Admin: 08/13/18 12:46 Dose: 40 mg Ceftriaxone Sodium/Dextrose 1 (gm/ Premix) 50 mls @ 100 mls/hr IV Q24H [facility] Last Admin: 08/13/18 15:07 Dose: 100 mls/hr Potassium Chloride 40 meq/ (Dextrose/Water) 1,020 mls @ 100 mls/hr IV ASDIRECTED [facility] Stop: 08/14/18 18:11 Ketorolac Tromethamine (Toradol) 30 mg IM Q6H PRN PRN Reason: Pain (moderate 4-6) Morphine Sulfate (Morphine) 2 mg IVPUSH Q2H PRN PRN Reason: Pain (severe 7-10) Stop: 08/14/18 11:50 Ondansetron HCl (Zofran) 4 mg IVPUSH Q4H PRN PRN Reason: Nausea Last Admin: 08/14/18 05:49 Dose: 4 mg Pantoprazole Sodium (Protonix Iv) 40 mg IV Q24H [facility] Discontinued Medications Sodium Chloride (Normal Saline) 1,000 mls @ 999 mls/hr IV STAT ONE Stop: 08/13/18 11:06 Last Admin: 08/13/18 10:26 Dose: 999 mls/hr Potassium Chloride 40 meq/ (Premix) 100 mls @ 25 mls/hr IV ONETIME ONE Stop: 08/13/18 14:51 Last Admin: 08/13/18 11:37 Dose: 25 mls/hr Sodium Chloride (Normal Saline) 1,000 mls @ 125 mls/hr IV STAT ONE Stop: 08/13/18 18:55 Last Admin: 08/13/18 11:37 Dose: 125 mls/hr Potassium Chloride 40 meq/ (Premix) 100 mls @ 25 mls/hr IV ONETIME ONE Stop: 08/13/18 20:38 Last Admin: 08/13/18 17:12 Dose: 25 mls/hr Sodium Chloride (Normal Saline) 1,000 mls @ 100 mls/hr IV ASDIRECTED [facility] Last Admin: 08/14/18 05:41 Dose: 100 mls/hr Morphine Sulfate (Morphine) 2 mg IVPUSH Q2H PRN PRN Reason: Pain (severe 7-10) Stop: 08/14/18 11:50 Omeprazole (Omeprazole) 40 mg PO ONETIME ONE Stop: 08/14/18 01:07 Last Admin: 08/14/18 04:55 Dose: Not Given Ondansetron HCl (Zofran) 4 mg IVPUSH ONETIME ONE Stop: 08/13/18 10:07 Last Admin: 08/13/18 10:26 Dose: 4 mg Sumatriptan Succinate (Imitrex) 6 mg SUBCUT ONETIME ONE Stop: 08/13/18 11:56 Last Admin: 08/13/18 12:45 Dose: Not Given - Exam General: Alert, Oriented, Cooperative, No Acute Distress Lungs: Clear to Auscultation, Normal Respiratory Effort Cardiovascular: Regular Rate, Regular Rhythm GI/Abdominal Exam: Normal Bowel Sounds, Soft, Non-Tender, No Organomegaly Extremities: Normal Inspection, Normal Range of Motion, Non-Tender, No Pedal Edema Neurological: No New Focal Deficit Psy/Mental Status: Alert, Normal Affect, Normal Mood - Problem List & Annotations (1) Hypernatremia SNOMED Code(s): 353798533 Code(s): E87.0 - HYPEROSMOLALITY AND HYPERNATREMIA Status: Acute Current Visit: No (2) Hypokalemia SNOMED Code(s): 04686534 Code(s): E87.6 - HYPOKALEMIA Status: Acute Current Visit: Yes (3) Dehydration SNOMED Code(s): 96851577 Code(s): E86.0 - DEHYDRATION Status: Acute Current Visit: Yes (4) Hypomagnesemia SNOMED Code(s): 897895197 Code(s): E83.42 - HYPOMAGNESEMIA Status: Acute Current Visit: No (5) Nausea & vomiting SNOMED Code(s): 10188610 Code(s): R11.2 - NAUSEA WITH VOMITING, UNSPECIFIED Status: Acute Priority : High Current Visit: No Qualifiers: Vomiting type: bilious vomiting Qualified Code(s): R11.14 - Bilious vomiting (6) UTI (urinary tract infection) SNOMED Code(s): 07684664 Code(s): N39.0 - URINARY TRACT INFECTION, SITE NOT SPECIFIED Status: Acute Priority: High Current Visit: No Qualifiers: Urinary tract infection type: acute cystitis Hematuria presence: without hematuria Qualified Code(s): N30.00 - Acute cystitis without hematuria (7) History of gastric bypass SNOMED Code(s): 413769453 Code(s): Z98.84 - BARIATRIC SURGERY STATUS Status: Chronic Current Visit : Yes - Problem List Review Problem List Initiated/Reviewed/Updated: Yes - My Orders Last 24 Hours: My Active Orders 08/14/18 05:26 MAGNESIUM [CHEM] Routine PHOSPHORUS [CHEM] Routine 08/14/18 08:00 Potassium Chloride 40 meq Dextrose 5% in Water 1,000 ml IV ASDIRECTED 08/14/18 08:15 Pantoprazole [ProTONIX IV] 40 mg IV Q24H - Plan Plan:: This 32 year old female admitted with hypokalemia, hypernatremia secondary to dehydration and gastric bypass. 1. Intractable nausea, vomiting: Reports pain to esophagus when she swallows and burning. Had EGD done with surgeon, Dr Crews, in [place], will obtain these records. Consider H pylori testing. Add Protonix IV BID for now. trial Carafate QID and HS 2. Hypokalemia, hypernatremia, hyperchloremia: Replace IV. Stop NS. Change to D5W with 40 KCL, recheck labwork this afternoon to insure improvement. 3. UTI: UC pending. Continue Rocephin. VTE prophylaxis: Lovenox. Dispo: 1-2 days <Roosevelt Blackman - Last Filed: 08/14/18 12:22> - General Info Admission Dx/Problem (Free Text): I have seen and examined to patient independently of Steff Wood CNP. I have discussed the case for care of this patient with her. I have reviewed and approve of the plan of care as outlined by her. Please see orders. - Patient Data Vitals - Most Recent: Last Vital Signs Temp 35.9 C 08/14/18 07:40 Pulse 60 08/14/18 07:40 Resp 16 08/14/18 07:40 BP 103/64 08/14/18 07:40 Pulse Ox 100 08/14/18 11:54 I&O - Last 24 Hours: Intake & Output 08/13/18 08/14/18 08/14/18 22:59 06:59 14:59 Intake Total 637 1706 1070 Output Total 100 200 Balance 537 1506 1070 Lab Results Last 24 Hours: Laboratory Results - last 24 hr 08/13/18 08/13/18 08/13/18 Range/Units 10:15 10:15 14:00 WBC (4.0-11.0) K/uL RBC (4.30-5.90) M/uL Hgb (12.0-16.0) g/dL Hct (36.0-46.0) % MCV (80.0-98.0) fL MCH (27.0-32.0) pg MCHC (31.0-37.0) g/dL RDW Std Deviation (28.0-62.0) fl RDW Coeff of Madelyn (11.0-15.0) % Plt Count (150-400) K/uL MPV (7.40-12.00) fL Nucleated RBC % /100WBC Nucleated RBCs # K/uL Sodium (136-145) mmol/L Potassium (3.5-5.1) mmol/L Chloride (98-107) mmol/L Carbon Dioxide (21.0-32.0) mmol/L BUN (7.0-18.0) mg/dL Creatinine (0.6-1.0) mg/dL Est Cr Clr Drug Dosing mL/min Estimated GFR (MDRD) ml/min Glucose (74-106) mg/dL Calcium (8.5-10.1) mg/dL Phosphorus (2.6-4.7) mg/dL Magnesium (1.8-2.4) mg/dL Triglycerides 98 (0-200) mg/dL Cholesterol 195 (50-200) mg/dL LDL Cholesterol, Calc 132 (60-180) mg/dL VLDL Cholesterol 19 (5-55) mg/dL HDL Cholesterol 43 (40-60) mg/dL Cholesterol/HDL Ratio 4.5 (3.3-6.0) TSH 3rd Generation 2.04 (0.36-3.74) uIU/mL Urine Color DARK YELLOW Urine Appearance CLOUDY Urine pH 6.0 (5.0-8.0) Ur Specific [place] >= 1.030 (1.001-1.035) Urine Protein 30 H (NEGATIVE) mg/dL Urine Glucose (UA) NEGATIVE (NEGATIVE) mg/dL Urine Ketones >=80 (NEGATIVE) mg/dL Urine Occult Blood MODERATE H (NEGATIVE) Urine Nitrite NEGATIVE (NEGATIVE) Urine Bilirubin MODERATE H (NEGATIVE) Urine Ictotest POSITIVE Urine Urobilinogen 0.2 (<2.0) EU/dL Ur Leukocyte Esterase MODERATE H (NEGATIVE) Urine RBC 10-15 (0-2/HPF) Urine WBC 30-40 (0-5/HPF) Ur Epithelial Cells MODERATE (NONE-FEW) Amorphous Sediment LIGHT (NEGATIVE) Urine Bacteria 1+ H (NEGATIVE) Urine Mucus LIGHT (NONE-MOD) Urine HCG, Qual (NEGATIVE) Urine Opiates Screen (NEGATIVE) Ur Oxycodone Screen (NEGATIVE) Urine Methadone Screen (NEGATIVE) Ur Barbiturates Screen (NEGATIVE) Ur Phencyclidine Scrn (NEGATIVE) Ur Amphetamine Screen (NEGATIVE) U Methamphetamines Scrn (NEGATIVE) U Benzodiazepines Scrn (NEGATIVE) U Cocaine Metab Screen (NEGATIVE) U Marijuana (THC) Screen (NEGATIVE) 08/13/18 08/13/18 08/14/18 Range/Units 14:00 14:00 05:26 WBC 3.68 L (4.0-11.0) K/uL RBC 4.56 (4.30-5.90) M/uL Hgb 12.1 (12.0-16.0) g/dL Hct 38.5 (36.0-46.0) % MCV 84.4 (80.0-98.0) fL MCH 26.5 L (27.0-32.0) pg MCHC 31.4 (31.0-37.0) g/dL RDW Std Deviation 48.2 (28.0-62.0) fl RDW Coeff of Madelyn 16 H (11.0-15.0) % Plt Count 194 (150-400) K/uL MPV 11.50 (7.40-12.00) fL Nucleated RBC % 0.0 /100WBC Nucleated RBCs # 0 K/uL Sodium (136-145) mmol/L Potassium (3.5-5.1) mmol/L Chloride (98-107) mmol/L Carbon Dioxide (21.0-32.0) mmol/L BUN (7.0-18.0) mg/dL Creatinine (0.6-1.0) mg/dL Est Cr Clr Drug Dosing mL/min Estimated GFR (MDRD) ml/min Glucose (74-106) mg/dL Calcium (8.5-10.1) mg/dL Phosphorus (2.6-4.7) mg/dL Magnesium (1.8-2.4) mg/dL Triglycerides (0-200) mg/dL Cholesterol (50-200) mg/dL LDL Cholesterol, Calc (60-180) mg/dL VLDL Cholesterol (5-55) mg/dL HDL Cholesterol (40-60) mg/dL Cholesterol/HDL Ratio (3.3-6.0) TSH 3rd Generation (0.36-3.74) uIU/mL Urine Color Urine Appearance Urine pH (5.0-8.0) Ur Specific [place] (1.001-1.035) Urine Protein (NEGATIVE) mg/dL Urine Glucose (UA) (NEGATIVE) mg/dL Urine Ketones (NEGATIVE) mg/dL Urine Occult Blood (NEGATIVE) Urine Nitrite (NEGATIVE) Urine Bilirubin (NEGATIVE) Urine Ictotest Urine Urobilinogen (<2.0) EU/dL Ur Leukocyte Esterase (NEGATIVE) Urine RBC (0-2/HPF) Urine WBC (0-5/HPF) Ur Epithelial Cells (NONE-FEW) Amorphous Sediment (NEGATIVE) Urine Bacteria (NEGATIVE) Urine Mucus (NONE-MOD) Urine HCG, Qual NEGATIVE (NEGATIVE) Urine Opiates Screen NEGATIVE (NEGATIVE) Ur Oxycodone Screen NEGATIVE (NEGATIVE) Urine Methadone Screen NEGATIVE (NEGATIVE) Ur Barbiturates Screen NEGATIVE (NEGATIVE) Ur Phencyclidine Scrn NEGATIVE (NEGATIVE) Ur Amphetamine Screen NEGATIVE (NEGATIVE) U Methamphetamines Scrn NEGATIVE (NEGATIVE) U Benzodiazepines Scrn NEGATIVE (NEGATIVE) U Cocaine Metab Screen NEGATIVE (NEGATIVE) U Marijuana (THC) Screen NEGATIVE (NEGATIVE) 08/14/18 08/14/18 Range/Units 05:26 05:26 WBC (4.0-11.0) K/uL RBC (4.30-5.90) M/uL Hgb (12.0-16.0) g/dL Hct (36.0-46.0) % MCV (80.0-98.0) fL MCH (27.0-32.0) pg MCHC (31.0-37.0) g/dL RDW Std Deviation (28.0-62.0) fl RDW Coeff of Madelyn (11.0-15.0) % Plt Count (150-400) K/uL MPV (7.40-12.00) fL Nucleated RBC % /100WBC Nucleated RBCs # K/uL Sodium 148 H (136-145) mmol/L Potassium 3.1 L (3.5-5.1) mmol/L Chloride 114 H (98-107) mmol/L Carbon Dioxide 22.9 (21.0-32.0) mmol/L BUN 4 L (7.0-18.0) mg/dL Creatinine 0.5 L (0.6-1.0) mg/dL Est Cr Clr Drug Dosing 142.07 mL/min Estimated GFR (MDRD) > 60.0 ml/min Glucose 82 (74-106) mg/dL Calcium 8.5 (8.5-10.1) mg/dL Phosphorus 3.8 (2.6-4.7) mg/dL Magnesium 1.6 L (1.8-2.4) mg/dL Triglycerides (0-200) mg/dL Cholesterol (50-200) mg/dL LDL Cholesterol, Calc (60-180) mg/dL VLDL Cholesterol (5-55) mg/dL HDL Cholesterol (40-60) mg/dL Cholesterol/HDL Ratio (3.3-6.0) TSH 3rd Generation (0.36-3.74) uIU/mL Urine Color Urine Appearance Urine pH (5.0-8.0) Ur Specific [place] (1.001-1.035) Urine Protein (NEGATIVE) mg/dL Urine Glucose (UA) (NEGATIVE) mg/dL Urine Ketones (NEGATIVE) mg/dL Urine Occult Blood (NEGATIVE) Urine Nitrite (NEGATIVE) Urine Bilirubin (NEGATIVE) Urine Ictotest Urine Urobilinogen (<2.0) EU/dL Ur Leukocyte Esterase (NEGATIVE) Urine RBC (0-2/HPF) Urine WBC (0-5/HPF) Ur Epithelial Cells (NONE-FEW) Amorphous Sediment (NEGATIVE) Urine Bacteria (NEGATIVE) Urine Mucus (NONE-MOD) Urine HCG, Qual (NEGATIVE) Urine Opiates Screen (NEGATIVE) Ur Oxycodone Screen (NEGATIVE) Urine Methadone Screen (NEGATIVE) Ur Barbiturates Screen (NEGATIVE) Ur Phencyclidine Scrn (NEGATIVE) Ur Amphetamine Screen (NEGATIVE) U Methamphetamines Scrn (NEGATIVE) U Benzodiazepines Scrn (NEGATIVE) U Cocaine Metab Screen (NEGATIVE) U Marijuana (THC) Screen (NEGATIVE) Med Orders - Current: Current Medications Enoxaparin Sodium (Lovenox) 40 mg SUBCUT Q24H [facility] Last Admin: 08/14/18 11:25 Dose: 40 mg Ceftriaxone Sodium/Dextrose 1 (gm/ Premix) 50 mls @ 100 mls/hr IV Q24H [facility] Last Admin: 08/13/18 15:07 Dose: 100 mls/hr Potassium Chloride 40 meq/ (Dextrose/Water) 1,020 mls @ 100 mls/hr IV ASDIRECTED [facility] Stop: 08/14/18 18:11 Last Admin: 08/14/18 09:52 Dose: 100 mls/hr Ketorolac Tromethamine (Toradol) 30 mg IM Q6H PRN PRN Reason: Pain (moderate 4-6) Lorazepam (Ativan) 0.25 mg IVPUSH Q6H PRN PRN Reason: Nausea Ondansetron HCl (Zofran) 4 mg IVPUSH Q4H PRN PRN Reason: Nausea Last Admin: 08/14/18 11:28 Dose: 4 mg Pantoprazole Sodium (Protonix Iv) 40 mg IV Q12H [facility] Last Admin: 08/14/18 09:31 Dose: 40 mg Sucralfate (Carafate) 1 gm PO QIDACANDBED [facility] Last Admin: 08/14/18 11:25 Dose: 1 gm Discontinued Medications Sodium Chloride (Normal Saline) 1,000 mls @ 999 mls/hr IV STAT ONE Stop: 08/13/18 11:06 Last Admin: 08/13/18 10:26 Dose: 999 mls/hr Potassium Chloride 40 meq/ (Premix) 100 mls @ 25 mls/hr IV ONETIME ONE Stop: 08/13/18 14:51 Last Admin: 08/13/18 11:37 Dose: 25 mls/hr Sodium Chloride (Normal Saline) 1,000 mls @ 125 mls/hr IV STAT ONE Stop: 08/13/18 18:55 Last Admin: 08/13/18 11:37 Dose: 125 mls/hr Potassium Chloride 40 meq/ (Premix) 100 mls @ 25 mls/hr IV ONETIME ONE Stop: 08/13/18 20:38 Last Admin: 08/13/18 17:12 Dose: 25 mls/hr Sodium Chloride (Normal Saline) 1,000 mls @ 100 mls/hr IV ASDIRECTED [facility] Last Admin: 08/14/18 05:41 Dose: 100 mls/hr Magnesium Sulfate 2 gm/ Premix 50 mls @ 50 mls/hr IV ONETIME ONE Stop: 08/14/18 09:59 Last Admin: 08/14/18 09:36 Dose: 50 mls/hr Morphine Sulfate (Morphine) 2 mg IVPUSH Q2H PRN PRN Reason: Pain (severe 7-10) Stop: 08/14/18 11:50 Morphine Sulfate (Morphine) 2 mg IVPUSH Q2H PRN PRN Reason: Pain (severe 7-10) Stop: 08/14/18 11:50 Omeprazole (Omeprazole) 40 mg PO ONETIME ONE Stop: 08/14/18 01:07 Last Admin: 08/14/18 04:55 Dose: Not Given Ondansetron HCl (Zofran) 4 mg IVPUSH ONETIME ONE Stop: 08/13/18 10:07 Last Admin: 08/13/18 10:26 Dose: 4 mg Pantoprazole Sodium (Protonix Iv) 40 mg IV Q24H [facility] Last Admin: 08/14/18 09:53 Dose: Not Given Sumatriptan Succinate (Imitrex) 6 mg SUBCUT ONETIME ONE Stop: 08/13/18 11:56 Last Admin: 08/13/18 12:45 Dose: Not Given
[2018-08-14] MEDS ORDERED: Magnesium Sulfate/Water 2 GM in Premix Bag 1 BAG IV ONE (09:00)
[2018-08-14] MEDS: Pantoprazole 40 MG Vial IV SCH ×2 (09:31→21:17)
[2018-08-14] MEDS: Enoxaparin 40 MG/0.4 ML Syringe SUBCUT SCH (11:25)
[2018-08-14] MEDS: Sucralfate Suspension 1 GM/10 ML Cup PO SCH ×3 (11:25→21:17)
[2018-08-14 14:11] LABS: CHLORIDE,CL 109 mmol/L (98-107); SODIUM,NA 144 mmol/L (136-145)
[2018-08-14] MEDS: cefTRIAXone 1 GM in Premix Bag 1 BAG IV SCH (14:19)
[2018-08-14] MEDS: Sodium Chloride 0.45% with KCl 1,000 ML IV SCH (21:26)
[2018-08-15] MEDS: Ondansetron 4 MG/2 ML SDV IVPUSH PRN ×3 (03:52→19:31)
[2018-08-15 06:14] LABS: CHLORIDE,CL 105 mmol/L (98-107); SODIUM,NA 140 mmol/L (136-145)
[2018-08-15] MEDS: Sodium Chloride 0.45% with KCl 1,000 ML IV SCH ×2 (07:29→09:33)
[2018-08-15] MEDS ORDERED: Magnesium Sulfate/Water 2 GM in Premix Bag 1 BAG IV ONE (08:04)
--- NOTE | 2018-08-15 08:09 | PCM.PN ---
<Steff Wood M - Last Filed: 08/15/18 09:37> - General Info Date of Service: 08/15/18 Admission Dx/Problem (Free Text): Hypokalemia, intractable nausea Subjective Update: Feeling dizziness this morning. No abdominal pain. Not taking much orally in. Feels dizzy since yesterday, feels like it started after Carafate and Protonix was started. No headache. Functional Status: Reports: Pain Controlled, Ambulating, Urinating. Denies: Tolerating Diet - Review of Systems General: Reports: Malaise. Denies: Appetite HEENT: Reports: Other (dizziness). Denies: Headaches, Visual Changes Pulmonary: Reports: No Symptoms. Denies: Shortness of Breath Cardiovascular: Reports: No Symptoms. Denies: Chest Pain Gastrointestinal: Reports: Nausea. Denies: Abdominal Pain, Vomiting Genitourinary: Reports: No Symptoms. Denies: Dysuria, Frequency, Burning Musculoskeletal: Reports: No Symptoms. Denies: Neck Pain Skin: Reports: No Symptoms Neurological: Reports: Dizziness. Denies: Headache, Paresthesia, Syncope, Trouble Speaking - Patient Data Vitals - Most Recent: Last Vital Signs Temp 96.7 F 08/15/18 04:00 Pulse 61 08/15/18 04:00 Resp 16 08/15/18 04:00 BP 100/58 L 08/15/18 04:00 Pulse Ox 96 08/15/18 04:00 Weight - Most Recent: 74.843 kg I&O - Last 24 Hours: Intake & Output 08/14/18 08/15/18 08/15/18 22:59 06:59 14:59 Intake Total 300 1945 Output Total 500 1150 Balance -200 795 Lab Results Last 24 Hours: Laboratory Results - last 24 hr 08/14/18 08/14/18 08/15/18 Range/Units 05:26 13:47 05:16 WBC 2.93 L (4.0-11.0) K/uL RBC 4.36 (4.30-5.90) M/uL Hgb 11.8 L (12.0-16.0) g/dL Hct 36.4 (36.0-46.0) % MCV 83.5 (80.0-98.0) fL MCH 27.1 (27.0-32.0) pg MCHC 32.4 (31.0-37.0) g/dL RDW Std Deviation 47.2 (28.0-62.0) fl RDW Coeff of Madelyn 16 H (11.0-15.0) % Plt Count 184 (150-400) K/uL MPV 11.90 (7.40-12.00) fL Neut % (Auto) 42.7 L (48.0-80.0) % Lymph % (Auto) 45.7 H (16.0-40.0) % [place] % (Auto) 11.6 (0.0-15.0) % Eos % (Auto) 0.0 (0.0-7.0) % Baso % (Auto) 0.0 (0.0-1.5) % Neut # (Auto) 1.3 L (1.4-5.7) K/uL Lymph # (Auto) 1.3 (0.6-2.4) K/uL [place] # (Auto) 0.3 (0.0-0.8) K/uL Eos # (Auto) 0.0 (0.0-0.7) K/uL Baso # (Auto) 0.0 (0.0-0.1) K/uL Nucleated RBC % 0.0 /100WBC Nucleated RBCs # 0 K/uL Sodium 144 (136-145) mmol/L Potassium 3.0 L (3.5-5.1) mmol/L Chloride 109 H (98-107) mmol/L Carbon Dioxide 26.0 (21.0-32.0) mmol/L BUN 3 L (7.0-18.0) mg/dL Creatinine 0.5 L (0.6-1.0) mg/dL Est Cr Clr Drug Dosing 142.07 mL/min Estimated GFR (MDRD) > 60.0 ml/min Glucose 120 H (74-106) mg/dL Calcium 7.9 L (8.5-10.1) mg/dL Phosphorus 3.8 (2.6-4.7) mg/dL Magnesium 1.6 L (1.8-2.4) mg/dL 08/15/18 Range/Units 05:16 WBC (4.0-11.0) K/uL RBC (4.30-5.90) M/uL Hgb (12.0-16.0) g/dL Hct (36.0-46.0) % MCV (80.0-98.0) fL MCH (27.0-32.0) pg MCHC (31.0-37.0) g/dL RDW Std Deviation (28.0-62.0) fl RDW Coeff of Madelyn (11.0-15.0) % Plt Count (150-400) K/uL MPV (7.40-12.00) fL Neut % (Auto) (48.0-80.0) % Lymph % (Auto) (16.0-40.0) % [place] % (Auto) (0.0-15.0) % Eos % (Auto) (0.0-7.0) % Baso % (Auto) (0.0-1.5) % Neut # (Auto) (1.4-5.7) K/uL Lymph # (Auto) (0.6-2.4) K/uL [place] # (Auto) (0.0-0.8) K/uL Eos # (Auto) (0.0-0.7) K/uL Baso # (Auto) (0.0-0.1) K/uL Nucleated RBC % /100WBC Nucleated RBCs # K/uL Sodium 140 (136-145) mmol/L Potassium 2.6 L (3.5-5.1) mmol/L Chloride 105 (98-107) mmol/L Carbon Dioxide 25.5 (21.0-32.0) mmol/L BUN 1 L (7.0-18.0) mg/dL Creatinine 0.5 L (0.6-1.0) mg/dL Est Cr Clr Drug Dosing 142.07 mL/min Estimated GFR (MDRD) > 60.0 ml/min Glucose 89 (74-106) mg/dL Calcium 8.2 L (8.5-10.1) mg/dL Phosphorus (2.6-4.7) mg/dL Magnesium 1.8 (1.8-2.4) mg/dL [place] Results Last 24 Hours: Microbiology 08/13/18 14:00 Urine Culture - Final Urine, Clean Catch MIXED RUSTY >100,000 CFU/ML Med Orders - Current: Current Medications Enoxaparin Sodium (Lovenox) 40 mg SUBCUT Q24H [facility] Last Admin: 08/14/18 11:25 Dose: 40 mg Ceftriaxone Sodium/Dextrose 1 (gm/ Premix) 50 mls @ 100 mls/hr IV Q24H [facility] Last Admin: 08/14/18 14:19 Dose: 100 mls/hr Potassium Chloride 40 meq/ (Sodium Chloride) 1,020 mls @ 125 mls/hr IV Q8H [facility] Magnesium Sulfate 2 gm/ Premix 50 mls @ 50 mls/hr IV ONETIME ONE Stop: 08/15/18 09:03 Ketorolac Tromethamine (Toradol) 30 mg IM Q6H PRN PRN Reason: Pain (moderate 4-6) Lorazepam (Ativan) 0.25 mg IVPUSH Q6H PRN PRN Reason: Nausea Ondansetron HCl (Zofran) 4 mg IVPUSH Q4H PRN PRN Reason: Nausea Last Admin: 08/15/18 03:52 Dose: 4 mg Pantoprazole Sodium (Protonix Iv) 40 mg IV Q12H [facility] Last Admin: 08/14/18 21:17 Dose: 40 mg Sucralfate (Carafate) 1 gm PO QIDACANDBED [facility] Last Admin: 08/14/18 21:17 Dose: 1 gm Discontinued Medications Sodium Chloride (Normal Saline) 1,000 mls @ 999 mls/hr IV STAT ONE Stop: 08/13/18 11:06 Last Admin: 08/13/18 10:26 Dose: 999 mls/hr Potassium Chloride 40 meq/ (Premix) 100 mls @ 25 mls/hr IV ONETIME ONE Stop: 08/13/18 14:51 Last Admin: 08/13/18 11:37 Dose: 25 mls/hr Sodium Chloride (Normal Saline) 1,000 mls @ 125 mls/hr IV STAT ONE Stop: 08/13/18 18:55 Last Admin: 08/13/18 11:37 Dose: 125 mls/hr Potassium Chloride 40 meq/ (Premix) 100 mls @ 25 mls/hr IV ONETIME ONE Stop: 08/13/18 20:38 Last Admin: 08/13/18 17:12 Dose: 25 mls/hr Sodium Chloride (Normal Saline) 1,000 mls @ 100 mls/hr IV ASDIRECTED [facility] Last Admin: 08/14/18 05:41 Dose: 100 mls/hr Potassium Chloride 40 meq/ (Dextrose/Water) 1,020 mls @ 100 mls/hr IV ASDIRECTED [facility] Stop: 08/14/18 18:11 Last Admin: 08/14/18 09:52 Dose: 100 mls/hr Magnesium Sulfate 2 gm/ Premix 50 mls @ 50 mls/hr IV ONETIME ONE Stop: 08/14/18 09:59 Last Admin: 08/14/18 09:36 Dose: 50 mls/hr Potassium Chloride/Sodium Chloride (1/2 Ns With 20 Meq Kcl) 1,000 mls @ 100 mls /hr IV ASDIRECTED [facility] Last Admin: 08/15/18 07:29 Dose: 100 mls/hr Morphine Sulfate (Morphine) 2 mg IVPUSH Q2H PRN PRN Reason: Pain (severe 7-10) Stop: 08/14/18 11:50 Morphine Sulfate (Morphine) 2 mg IVPUSH Q2H PRN PRN Reason: Pain (severe 7-10) Stop: 08/14/18 11:50 Omeprazole (Omeprazole) 40 mg PO ONETIME ONE Stop: 08/14/18 01:07 Last Admin: 08/14/18 04:55 Dose: Not Given Ondansetron HCl (Zofran) 4 mg IVPUSH ONETIME ONE Stop: 08/13/18 10:07 Last Admin: 08/13/18 10:26 Dose: 4 mg Pantoprazole Sodium (Protonix Iv) 40 mg IV Q24H [facility] Last Admin: 08/14/18 09:53 Dose: Not Given Sumatriptan Succinate (Imitrex) 6 mg SUBCUT ONETIME ONE Stop: 08/13/18 11:56 Last Admin: 08/13/18 12:45 Dose: Not Given - Exam General: Alert, Oriented, Cooperative, Mild Distress (covering eyes, helps dizziness, denies headache or eye pain. No neck pain) Neck: Supple Lungs: Clear to Auscultation, Normal Respiratory Effort Cardiovascular: Regular Rate, Regular Rhythm, No Murmurs GI/Abdominal Exam: Normal Bowel Sounds, Soft, Non-Tender, No Organomegaly, No Mass Back Exam: Normal Inspection, Full Range of Motion Extremities: Normal Inspection, Normal Range of Motion, Non-Tender, No Pedal Edema Wound/Incisions: Healing Well Neurological: No New Focal Deficit Psy/Mental Status: Alert, Normal Affect, Normal Mood - Problem List & Annotations (1) Hypernatremia SNOMED Code(s): 958704309 Code(s): E87.0 - HYPEROSMOLALITY AND HYPERNATREMIA Status: Resolved Current Visit: No (2) Hypokalemia SNOMED Code(s): 84042453 Code(s): E87.6 - HYPOKALEMIA Status: Acute Current Visit: Yes (3) Dehydration SNOMED Code(s): 76931873 Code(s): E86.0 - DEHYDRATION Status: Acute Current Visit: Yes (4) Hypomagnesemia SNOMED Code(s): 345613770 Code(s): E83.42 - HYPOMAGNESEMIA Status: Acute Current Visit: No (5) Nausea & vomiting SNOMED Code(s): 52994810 Code(s): R11.2 - NAUSEA WITH VOMITING, UNSPECIFIED Status: Acute Priority : High Current Visit: No Qualifiers: Vomiting type: bilious vomiting Qualified Code(s): R11.14 - Bilious vomiting (6) UTI (urinary tract infection) SNOMED Code(s): 08638714 Code(s): N39.0 - URINARY TRACT INFECTION, SITE NOT SPECIFIED Status: Acute Priority: High Current Visit: No Qualifiers: Urinary tract infection type: acute cystitis Hematuria presence: without hematuria Qualified Code(s): N30.00 - Acute cystitis without hematuria (7) History of gastric bypass SNOMED Code(s): 312142955 Code(s): Z98.84 - BARIATRIC SURGERY STATUS Status: Chronic Current Visit : Yes - Problem List Review Problem List Initiated/Reviewed/Updated: Yes - My Orders Last 24 Hours: My Active Orders 08/14/18 08:49 Communication Order [RC] STAT 08/14/18 09:00 Pantoprazole [ProTONIX IV] 40 mg IV Q12H 08/14/18 09:09 LORazepam [Ativan] 0.25 mg IVPUSH Q6H PRN 08/14/18 11:30 Sucralfate [Carafate] 1 gm PO QIDACANDBED 08/15/18 08:03 Telemetry Monitoring [Cardiac Monitoring] [RC] . DIRECTED 08/15/18 08:04 Magnesium Sulfate/Water [Magnesium Sulfate in Water Premix] 2 gm Premix Bag 1 bag IV ONETIME 08/15/18 08:30 Potassium Chloride 40 meq Sodium Chloride 0.45% 1,000 ml IV Q8H 08/16/18 05:11 BASIC METABOLIC PANEL,BMP [CHEM] AM CBC WITH AUTO DIFF [HEME] AM MAGNESIUM [CHEM] AM - Plan Plan:: This 32 year old female admitted with hypokalemia, hypernatremia secondary to dehydration and gastric bypass. 1. Intractable nausea, vomiting: Mildly improved, but now is very dizzy. Will trial Meclizine, likely secondary to hypokalemia. Had EGD done with surgeon, Dr Crews, in [place], obtained these records and they were reviewed. H pylori biopsy negative. Continue Protonix IV BID. Hold Carafate for now, patient reports after this was started she got dizzy. I spoke with Marcie RN with Dr Crews and Lalita GOMEZ. She will get message to both of these providers regarding admission. Reports they have talked about anti- anxiety medication to possibly see if this would work. We added Ativan yesterday , was not given. Spoke with nursing and will trial this and monitor. Will await Dr Crews or Lalita to call back with any further recommendations. 2. Hypokalemia, hypernatremia, hyperchloremia: Hypernatremia corrected with D5W , potassium dipped to 2.6 today. Will change IV fluids to 1/2 NS with 40 KCL, monitor potassium this afternoon. She does not feel she is able to take potassium orally due to nausea. Replace Mg as well, with 2 gm IV. 3. UTI: UC mixed rusty >100,000. Continue Rocephin. VTE prophylaxis: Lovenox. Dispo: 1-2 days <Roosevelt Blackman - Last Filed: 08/15/18 12:37> - General Info Admission Dx/Problem (Free Text): I have seen and examined to patient independently of Steff Wood CNP. I have discussed the case for care of this patient with her. I have reviewed and approve of the plan of care as outlined by her. Please see orders. - Patient Data Vitals - Most Recent: Last Vital Signs Temp 35.9 C 08/15/18 04:00 Pulse 61 08/15/18 04:00 Resp 16 08/15/18 04:00 BP 100/58 L 08/15/18 04:00 Pulse Ox 96 08/15/18 04:00 I&O - Last 24 Hours: Intake & Output 08/14/18 08/15/18 08/15/18 22:59 06:59 14:59 Intake Total 300 1945 Output Total 500 1150 Balance -200 795 Lab Results Last 24 Hours: Laboratory Results - last 24 hr 08/14/18 08/15/18 08/15/18 Range/Units 13:47 05:16 05:16 WBC 2.93 L (4.0-11.0) K/uL RBC 4.36 (4.30-5.90) M/uL Hgb 11.8 L (12.0-16.0) g/dL Hct 36.4 (36.0-46.0) % MCV 83.5 (80.0-98.0) fL MCH 27.1 (27.0-32.0) pg MCHC 32.4 (31.0-37.0) g/dL RDW Std Deviation 47.2 (28.0-62.0) fl RDW Coeff of Madelyn 16 H (11.0-15.0) % Plt Count 184 (150-400) K/uL MPV 11.90 (7.40-12.00) fL Neut % (Auto) 42.7 L (48.0-80.0) % Lymph % (Auto) 45.7 H (16.0-40.0) % [place] % (Auto) 11.6 (0.0-15.0) % Eos % (Auto) 0.0 (0.0-7.0) % Baso % (Auto) 0.0 (0.0-1.5) % Neut # (Auto) 1.3 L (1.4-5.7) K/uL Lymph # (Auto) 1.3 (0.6-2.4) K/uL [place] # (Auto) 0.3 (0.0-0.8) K/uL Eos # (Auto) 0.0 (0.0-0.7) K/uL Baso # (Auto) 0.0 (0.0-0.1) K/uL Nucleated RBC % 0.0 /100WBC Nucleated RBCs # 0 K/uL Sodium 144 140 (136-145) mmol/L Potassium 3.0 L 2.6 L (3.5-5.1) mmol/L Chloride 109 H 105 (98-107) mmol/L Carbon Dioxide 26.0 25.5 (21.0-32.0) mmol/L BUN 3 L 1 L (7.0-18.0) mg/dL Creatinine 0.5 L 0.5 L (0.6-1.0) mg/dL Est Cr Clr Drug Dosing 142.07 142.07 mL/min Estimated GFR (MDRD) > 60.0 > 60.0 ml/min Glucose 120 H 89 (74-106) mg/dL Calcium 7.9 L 8.2 L (8.5-10.1) mg/dL Magnesium 1.8 (1.8-2.4) mg/dL [place] Results Last 24 Hours: Microbiology 08/13/18 14:00 Urine Culture - Final Urine, Clean Catch MIXED RUSTY >100,000 CFU/ML Med Orders - Current: Current Medications Enoxaparin Sodium (Lovenox) 40 mg SUBCUT Q24H [facility] Last Admin: 08/14/18 11:25 Dose: 40 mg Ceftriaxone Sodium/Dextrose 1 (gm/ Premix) 50 mls @ 100 mls/hr IV Q24H [facility] Last Admin: 08/14/18 14:19 Dose: 100 mls/hr Potassium Chloride 40 meq/ (Sodium Chloride) 1,020 mls @ 125 mls/hr IV Q8H [facility] Last Admin: 08/15/18 09:50 Dose: 125 mls/hr Ketorolac Tromethamine (Toradol) 30 mg IM Q6H PRN PRN Reason: Pain (moderate 4-6) Lorazepam (Ativan) 0.25 mg IVPUSH Q6H PRN PRN Reason: Nausea Last Admin: 08/15/18 09:26 Dose: 0.25 mg Meclizine HCl (Antivert) 25 mg PO TID PRN PRN Reason: Dizziness Last Admin: 08/15/18 09:27 Dose: 25 mg Ondansetron HCl (Zofran) 4 mg IVPUSH Q4H PRN PRN Reason: Nausea Last Admin: 08/15/18 03:52 Dose: 4 mg Pantoprazole Sodium (Protonix Iv) 40 mg IV Q12H [facility] Last Admin: 08/15/18 09:26 Dose: 40 mg Sucralfate (Carafate) 1 gm PO QIDACANDBED [facility] Last Admin: 08/15/18 09:25 Dose: Not Given Discontinued Medications Sodium Chloride (Normal Saline) 1,000 mls @ 999 mls/hr IV STAT ONE Stop: 08/13/18 11:06 Last Admin: 08/13/18 10:26 Dose: 999 mls/hr Potassium Chloride 40 meq/ (Premix) 100 mls @ 25 mls/hr IV ONETIME ONE Stop: 08/13/18 14:51 Last Admin: 08/13/18 11:37 Dose: 25 mls/hr Sodium Chloride (Normal Saline) 1,000 mls @ 125 mls/hr IV STAT ONE Stop: 08/13/18 18:55 Last Admin: 08/13/18 11:37 Dose: 125 mls/hr Potassium Chloride 40 meq/ (Premix) 100 mls @ 25 mls/hr IV ONETIME ONE Stop: 08/13/18 20:38 Last Admin: 08/13/18 17:12 Dose: 25 mls/hr Sodium Chloride (Normal Saline) 1,000 mls @ 100 mls/hr IV ASDIRECTED [facility] Last Admin: 08/14/18 05:41 Dose: 100 mls/hr Potassium Chloride 40 meq/ (Dextrose/Water) 1,020 mls @ 100 mls/hr IV ASDIRECTED [facility] Stop: 08/14/18 18:11 Last Admin: 08/14/18 09:52 Dose: 100 mls/hr Magnesium Sulfate 2 gm/ Premix 50 mls @ 50 mls/hr IV ONETIME ONE Stop: 08/14/18 09:59 Last Admin: 08/14/18 09:36 Dose: 50 mls/hr Potassium Chloride/Sodium Chloride (1/2 Ns With 20 Meq Kcl) 1,000 mls @ 100 mls /hr IV ASDIRECTED [facility] Last Admin: 08/15/18 09:33 Dose: 100 mls/hr Magnesium Sulfate 2 gm/ Premix 50 mls @ 50 mls/hr IV ONETIME ONE Stop: 08/15/18 09:03 Last Admin: 08/15/18 09:26 Dose: 50 mls/hr Morphine Sulfate (Morphine) 2 mg IVPUSH Q2H PRN PRN Reason: Pain (severe 7-10) Stop: 08/14/18 11:50 Morphine Sulfate (Morphine) 2 mg IVPUSH Q2H PRN PRN Reason: Pain (severe 7-10) Stop: 08/14/18 11:50 Omeprazole (Omeprazole) 40 mg PO ONETIME ONE Stop: 08/14/18 01:07 Last Admin: 08/14/18 04:55 Dose: Not Given Ondansetron HCl (Zofran) 4 mg IVPUSH ONETIME ONE Stop: 08/13/18 10:07 Last Admin: 08/13/18 10:26 Dose: 4 mg Pantoprazole Sodium (Protonix Iv) 40 mg IV Q24H [facility] Last Admin: 08/14/18 09:53 Dose: Not Given Sumatriptan Succinate (Imitrex) 6 mg SUBCUT ONETIME ONE Stop: 08/13/18 11:56 Last Admin: 08/13/18 12:45 Dose: Not Given - My Orders Last 24 Hours: My Active Orders 08/15/18 07:28 Admission Status [Patient Status] [ADT] Routine
[2018-08-15] MEDS: Sucralfate Suspension 1 GM/10 ML Cup PO SCH ×4 (09:25→21:25)
[2018-08-15] MEDS: Pantoprazole 40 MG Vial IV SCH ×2 (09:26→21:25)
[2018-08-15] MEDS: LORazepam 2 MG/ML SDV IVPUSH PRN (09:26)
[2018-08-15] MEDS: Meclizine 25 MG Tab PO PRN ×2 (09:27→19:32)
[2018-08-15] MEDS: Potassium Chloride 40 MEQ in Sodium Chloride 0.45% 1,000 ML IV SCH ×2 (09:50→18:52)
[2018-08-15] MEDS: Enoxaparin 40 MG/0.4 ML Syringe SUBCUT SCH (13:45)
[2018-08-15] MEDS: cefTRIAXone 1 GM in Premix Bag 1 BAG IV SCH (15:02)
[2018-08-16] MEDS: Potassium Chloride 40 MEQ in Sodium Chloride 0.45% 1,000 ML IV SCH ×4 (04:42→21:47)
[2018-08-16 05:53] LABS: CHLORIDE,CL 102 mmol/L (98-107); SODIUM,NA 138 mmol/L (136-145)
[2018-08-16] MEDS: Sucralfate Suspension 1 GM/10 ML Cup PO SCH (06:51)
[2018-08-16] MEDS ORDERED: Magnesium Sulfate/Water 2 GM in Premix Bag 1 BAG IV ONE (08:06)
--- NOTE | 2018-08-16 08:24 | PCM.PN ---
<Steff Wood M - Last Filed: 08/16/18 09:52> - General Info Date of Service: 08/16/18 Admission Dx/Problem (Free Text): Hypokalemia, N/V S/P gastric bypass Subjective Update: Feeling improved today. Intermittent nausea. No pain. Feels protonix has helped a lot. Dizziness has improved significantly. Functional Status: Reports: Pain Controlled, Ambulating, Urinating. Denies: Tolerating Diet - Review of Systems General: Reports: Weakness (generalized.). Denies: Fatigue, Malaise, Appetite HEENT: Reports: Other (vertigo improved, slightly still there). Denies: Headaches, Sore Throat Pulmonary: Reports: No Symptoms. Denies: Shortness of Breath, Cough, Sputum Cardiovascular: Reports: No Symptoms. Denies: Chest Pain, Edema Gastrointestinal: Reports: Nausea. Denies: Abdominal Pain, Diarrhea Genitourinary: Reports: No Symptoms. Denies: Dysuria, Frequency, Burning Musculoskeletal: Reports: No Symptoms Skin: Reports: No Symptoms Neurological: Reports: No Symptoms Psychiatric: Reports: No Symptoms - Patient Data Vitals - Most Recent: Last Vital Signs Temp 98.4 F 08/16/18 04:00 Pulse 64 08/16/18 04:00 Resp 14 08/16/18 04:00 BP 94/58 L 08/16/18 04:00 Pulse Ox 97 08/16/18 04:00 Weight - Most Recent: 74.843 kg I&O - Last 24 Hours: Intake & Output 08/15/18 08/16/18 08/16/18 22:59 06:59 14:59 Intake Total 500 2578 Output Total 1250 1600 Balance -750 978 Lab Results Last 24 Hours: Laboratory Results - last 24 hr 08/13/18 08/15/18 08/16/18 Range/Units 10:15 13:11 05:20 WBC 3.20 L (4.0-11.0) K/uL RBC 4.56 (4.30-5.90) M/uL Hgb 12.2 (12.0-16.0) g/dL Hct 37.9 (36.0-46.0) % MCV 83.1 (80.0-98.0) fL MCH 26.8 L (27.0-32.0) pg MCHC 32.2 (31.0-37.0) g/dL RDW Std Deviation 46.2 (28.0-62.0) fl RDW Coeff of Madelyn 15 (11.0-15.0) % Plt Count 185 (150-400) K/uL MPV 11.00 (7.40-12.00) fL Neut % (Auto) 36.2 L (48.0-80.0) % Lymph % (Auto) 51.3 H (16.0-40.0) % Phillips % (Auto) 12.5 (0.0-15.0) % Eos % (Auto) 0.0 (0.0-7.0) % Baso % (Auto) 0.0 (0.0-1.5) % Neut # (Auto) 1.2 L (1.4-5.7) K/uL Lymph # (Auto) 1.6 (0.6-2.4) K/uL Phillips # (Auto) 0.4 (0.0-0.8) K/uL Eos # (Auto) 0.0 (0.0-0.7) K/uL Baso # (Auto) 0.0 (0.0-0.1) K/uL Nucleated RBC % 0.0 /100WBC Nucleated RBCs # 0 K/uL Sodium (136-145) mmol/L Potassium 3.2 L (3.5-5.1) mmol/L Chloride (98-107) mmol/L Carbon Dioxide (21.0-32.0) mmol/L BUN (7.0-18.0) mg/dL Creatinine (0.6-1.0) mg/dL Est Cr Clr Drug Dosing mL/min Estimated GFR (MDRD) ml/min Glucose (74-106) mg/dL Hemoglobin A1c 5.0 (4.5-6.2) % Calcium (8.5-10.1) mg/dL Magnesium (1.8-2.4) mg/dL 08/16/18 Range/Units 05:20 WBC (4.0-11.0) K/uL RBC (4.30-5.90) M/uL Hgb (12.0-16.0) g/dL Hct (36.0-46.0) % MCV (80.0-98.0) fL MCH (27.0-32.0) pg MCHC (31.0-37.0) g/dL RDW Std Deviation (28.0-62.0) fl RDW Coeff of Madelyn (11.0-15.0) % Plt Count (150-400) K/uL MPV (7.40-12.00) fL Neut % (Auto) (48.0-80.0) % Lymph % (Auto) (16.0-40.0) % Phillips % (Auto) (0.0-15.0) % Eos % (Auto) (0.0-7.0) % Baso % (Auto) (0.0-1.5) % Neut # (Auto) (1.4-5.7) K/uL Lymph # (Auto) (0.6-2.4) K/uL Phillips # (Auto) (0.0-0.8) K/uL Eos # (Auto) (0.0-0.7) K/uL Baso # (Auto) (0.0-0.1) K/uL Nucleated RBC % /100WBC Nucleated RBCs # K/uL Sodium 138 (136-145) mmol/L Potassium 3.0 L (3.5-5.1) mmol/L Chloride 102 (98-107) mmol/L Carbon Dioxide 27.9 (21.0-32.0) mmol/L BUN 2 L (7.0-18.0) mg/dL Creatinine 0.4 L (0.6-1.0) mg/dL Est Cr Clr Drug Dosing 177.58 mL/min Estimated GFR (MDRD) > 60.0 ml/min Glucose 87 (74-106) mg/dL Hemoglobin A1c (4.5-6.2) % Calcium 7.9 L (8.5-10.1) mg/dL Magnesium 1.9 (1.8-2.4) mg/dL [place] Results Last 24 Hours: Microbiology 08/13/18 14:00 Urine Culture - Final Urine, Clean Catch MIXED RUSTY >100,000 CFU/ML Med Orders - Current: Current Medications Enoxaparin Sodium (Lovenox) 40 mg SUBCUT Q24H [facility] Last Admin: 08/15/18 13:45 Dose: 40 mg Ceftriaxone Sodium/Dextrose 1 (gm/ Premix) 50 mls @ 100 mls/hr IV Q24H [facility] Last Admin: 08/15/18 15:02 Dose: 100 mls/hr Potassium Chloride 40 meq/ (Sodium Chloride) 1,020 mls @ 125 mls/hr IV Q8H [facility] Last Admin: 08/16/18 04:42 Dose: 125 mls/hr Magnesium Sulfate 2 gm/ Premix 50 mls @ 50 mls/hr IV ONETIME ONE Stop: 08/16/18 09:05 Ketorolac Tromethamine (Toradol) 30 mg IM Q6H PRN PRN Reason: Pain (moderate 4-6) Lorazepam (Ativan) 0.25 mg IVPUSH Q6H PRN PRN Reason: Nausea Last Admin: 08/15/18 09:26 Dose: 0.25 mg Meclizine HCl (Antivert) 25 mg PO TID PRN PRN Reason: Dizziness Last Admin: 08/15/18 19:32 Dose: 25 mg Ondansetron HCl (Zofran) 4 mg IVPUSH Q4H PRN PRN Reason: Nausea Last Admin: 08/15/18 19:31 Dose: 4 mg Pantoprazole Sodium (Protonix Iv) 40 mg IV Q12H [facility] Last Admin: 08/15/18 21:25 Dose: 40 mg Discontinued Medications Sodium Chloride (Normal Saline) 1,000 mls @ 999 mls/hr IV STAT ONE Stop: 08/13/18 11:06 Last Admin: 08/13/18 10:26 Dose: 999 mls/hr Potassium Chloride 40 meq/ (Premix) 100 mls @ 25 mls/hr IV ONETIME ONE Stop: 08/13/18 14:51 Last Admin: 08/13/18 11:37 Dose: 25 mls/hr Sodium Chloride (Normal Saline) 1,000 mls @ 125 mls/hr IV STAT ONE Stop: 08/13/18 18:55 Last Admin: 08/13/18 11:37 Dose: 125 mls/hr Potassium Chloride 40 meq/ (Premix) 100 mls @ 25 mls/hr IV ONETIME ONE Stop: 08/13/18 20:38 Last Admin: 08/13/18 17:12 Dose: 25 mls/hr Sodium Chloride (Normal Saline) 1,000 mls @ 100 mls/hr IV ASDIRECTED [facility] Last Admin: 08/14/18 05:41 Dose: 100 mls/hr Potassium Chloride 40 meq/ (Dextrose/Water) 1,020 mls @ 100 mls/hr IV ASDIRECTED [facility] Stop: 08/14/18 18:11 Last Admin: 08/14/18 09:52 Dose: 100 mls/hr Magnesium Sulfate 2 gm/ Premix 50 mls @ 50 mls/hr IV ONETIME ONE Stop: 08/14/18 09:59 Last Admin: 08/14/18 09:36 Dose: 50 mls/hr Potassium Chloride/Sodium Chloride (1/2 Ns With 20 Meq Kcl) 1,000 mls @ 100 mls /hr IV ASDIRECTED [facility] Last Admin: 08/15/18 09:33 Dose: 100 mls/hr Magnesium Sulfate 2 gm/ Premix 50 mls @ 50 mls/hr IV ONETIME ONE Stop: 08/15/18 09:03 Last Admin: 08/15/18 09:26 Dose: 50 mls/hr Morphine Sulfate (Morphine) 2 mg IVPUSH Q2H PRN PRN Reason: Pain (severe 7-10) Stop: 08/14/18 11:50 Morphine Sulfate (Morphine) 2 mg IVPUSH Q2H PRN PRN Reason: Pain (severe 7-10) Stop: 08/14/18 11:50 Omeprazole (Omeprazole) 40 mg PO ONETIME ONE Stop: 08/14/18 01:07 Last Admin: 08/14/18 04:55 Dose: Not Given Ondansetron HCl (Zofran) 4 mg IVPUSH ONETIME ONE Stop: 08/13/18 10:07 Last Admin: 08/13/18 10:26 Dose: 4 mg Pantoprazole Sodium (Protonix Iv) 40 mg IV Q24H [facility] Last Admin: 08/14/18 09:53 Dose: Not Given Sucralfate (Carafate) 1 gm PO QIDACANDBED [facility] Last Admin: 08/16/18 06:51 Dose: Not Given Sumatriptan Succinate (Imitrex) 6 mg SUBCUT ONETIME ONE Stop: 08/13/18 11:56 Last Admin: 08/13/18 12:45 Dose: Not Given - Exam General: Alert, Oriented, Cooperative, No Acute Distress HEENT: Pupils Equal Lungs: Clear to Auscultation, Normal Respiratory Effort Cardiovascular: Regular Rate, Regular Rhythm GI/Abdominal Exam: Normal Bowel Sounds, Soft, Non-Tender Back Exam: Normal Inspection, Full Range of Motion Extremities: Normal Inspection, Normal Range of Motion, Non-Tender Neurological: No New Focal Deficit Psy/Mental Status: Alert, Normal Affect, Normal Mood - Problem List & Annotations (1) Hypokalemia SNOMED Code(s): 09904590 Code(s): E87.6 - HYPOKALEMIA Status: Acute Current Visit: Yes (2) Dehydration SNOMED Code(s): 99775766 Code(s): E86.0 - DEHYDRATION Status: Acute Current Visit: Yes (3) Hypomagnesemia SNOMED Code(s): 947379423 Code(s): E83.42 - HYPOMAGNESEMIA Status: Acute Current Visit: No (4) Nausea & vomiting SNOMED Code(s): 98756592 Code(s): R11.2 - NAUSEA WITH VOMITING, UNSPECIFIED Status: Acute Priority : High Current Visit: No Qualifiers: Vomiting type: bilious vomiting Qualified Code(s): R11.14 - Bilious vomiting (5) UTI (urinary tract infection) SNOMED Code(s): 67316422 Code(s): N39.0 - URINARY TRACT INFECTION, SITE NOT SPECIFIED Status: Acute Priority: High Current Visit: No Qualifiers: Urinary tract infection type: acute cystitis Hematuria presence: without hematuria Qualified Code(s): N30.00 - Acute cystitis without hematuria (6) History of gastric bypass SNOMED Code(s): 905912612 Code(s): Z98.84 - BARIATRIC SURGERY STATUS Status: Chronic Current Visit : Yes - Problem List Review Problem List Initiated/Reviewed/Updated: Yes - My Orders Last 24 Hours: My Active Orders 08/15/18 08:03 Telemetry Monitoring [Cardiac Monitoring] [RC] Q8H 08/15/18 08:30 Potassium Chloride 40 meq Sodium Chloride 0.45% 1,000 ml IV Q8H 08/15/18 08:45 Meclizine [Antivert] 25 mg PO TID PRN 08/16/18 08:06 Magnesium Sulfate/Water [Magnesium Sulfate in Water Premix] 2 gm Premix Bag 1 bag IV ONETIME - Plan Plan:: This 32 year old female admitted with hypokalemia, hypernatremia secondary to dehydration and gastric bypass. 1. Intractable nausea, vomiting: Continued improvement today, dizziness improved. Feels this was from Carafate, has been refusing this. Will discontinue this now. Continue Protonix BID. Trialed Ativan yesterday, which improved nausea some. Was previously on Amitriptyline for anxiety and Effexor for depression, which she has not been on. She reports she doesn't want to be back on Effexor and will speak with therapist about this and is open to restarting Amitriptyline at some point. Schedule Ativan BID with breakfast and supper and see if this helps with nausea and possible anxiety surrounding food intake. 2. Hypokalemia: Continue 1/2 NS with 40 KCL, potassium 3.0 today. Willing to try potassium orally today. Replace Mg as well, with 2 gm IV. Encouraged to start taking in more food as tolerating, maybe starting back at beginning of bypass diet with purees, smoothies and such due to nausea. Needs to increase dietary intake to help stabilize electrolytes. 3. UTI: UC mixed rusty >100,000. Continue Rocephin. VTE prophylaxis: Lovenox. Dispo: 1-2 days Mother in room today, updated on treatment plan, all questions and concerns discussed. <Roosevelt Blackman - Last Filed: 08/16/18 10:22> - General Info Admission Dx/Problem (Free Text): I have seen and examined to patient independently of Steff Wood CNP. I have discussed the case for care of this patient with her. I have reviewed and approve of the plan of care as outlined by her. Please see orders. - Patient Data Vitals - Most Recent: Last Vital Signs Temp 36.2 C 08/16/18 09:00 Pulse 62 08/16/18 09:00 Resp 16 08/16/18 09:00 BP 116/71 08/16/18 09:00 Pulse Ox 97 08/16/18 09:00 I&O - Last 24 Hours: Intake & Output 08/15/18 08/16/18 08/16/18 22:59 06:59 14:59 Intake Total 500 2578 50 Output Total 1250 1600 Balance -750 978 50 Lab Results Last 24 Hours: Laboratory Results - last 24 hr 08/13/18 08/15/18 08/16/18 Range/Units 10:15 13:11 05:20 WBC 3.20 L (4.0-11.0) K/uL RBC 4.56 (4.30-5.90) M/uL Hgb 12.2 (12.0-16.0) g/dL Hct 37.9 (36.0-46.0) % MCV 83.1 (80.0-98.0) fL MCH 26.8 L (27.0-32.0) pg MCHC 32.2 (31.0-37.0) g/dL RDW Std Deviation 46.2 (28.0-62.0) fl RDW Coeff of Madelyn 15 (11.0-15.0) % Plt Count 185 (150-400) K/uL MPV 11.00 (7.40-12.00) fL Neut % (Auto) 36.2 L (48.0-80.0) % Lymph % (Auto) 51.3 H (16.0-40.0) % Phillips % (Auto) 12.5 (0.0-15.0) % Eos % (Auto) 0.0 (0.0-7.0) % Baso % (Auto) 0.0 (0.0-1.5) % Neut # (Auto) 1.2 L (1.4-5.7) K/uL Lymph # (Auto) 1.6 (0.6-2.4) K/uL Phillips # (Auto) 0.4 (0.0-0.8) K/uL Eos # (Auto) 0.0 (0.0-0.7) K/uL Baso # (Auto) 0.0 (0.0-0.1) K/uL Nucleated RBC % 0.0 /100WBC Nucleated RBCs # 0 K/uL Sodium (136-145) mmol/L Potassium 3.2 L (3.5-5.1) mmol/L Chloride (98-107) mmol/L Carbon Dioxide (21.0-32.0) mmol/L BUN (7.0-18.0) mg/dL Creatinine (0.6-1.0) mg/dL Est Cr Clr Drug Dosing mL/min Estimated GFR (MDRD) ml/min Glucose (74-106) mg/dL Hemoglobin A1c 5.0 (4.5-6.2) % Calcium (8.5-10.1) mg/dL Magnesium (1.8-2.4) mg/dL 08/16/18 Range/Units 05:20 WBC (4.0-11.0) K/uL RBC (4.30-5.90) M/uL Hgb (12.0-16.0) g/dL Hct (36.0-46.0) % MCV (80.0-98.0) fL MCH (27.0-32.0) pg MCHC (31.0-37.0) g/dL RDW Std Deviation (28.0-62.0) fl RDW Coeff of Madelyn (11.0-15.0) % Plt Count (150-400) K/uL MPV (7.40-12.00) fL Neut % (Auto) (48.0-80.0) % Lymph % (Auto) (16.0-40.0) % Phillips % (Auto) (0.0-15.0) % Eos % (Auto) (0.0-7.0) % Baso % (Auto) (0.0-1.5) % Neut # (Auto) (1.4-5.7) K/uL Lymph # (Auto) (0.6-2.4) K/uL Phillips # (Auto) (0.0-0.8) K/uL Eos # (Auto) (0.0-0.7) K/uL Baso # (Auto) (0.0-0.1) K/uL Nucleated RBC % /100WBC Nucleated RBCs # K/uL Sodium 138 (136-145) mmol/L Potassium 3.0 L (3.5-5.1) mmol/L Chloride 102 (98-107) mmol/L Carbon Dioxide 27.9 (21.0-32.0) mmol/L BUN 2 L (7.0-18.0) mg/dL Creatinine 0.4 L (0.6-1.0) mg/dL Est Cr Clr Drug Dosing 177.58 mL/min Estimated GFR (MDRD) > 60.0 ml/min Glucose 87 (74-106) mg/dL Hemoglobin A1c (4.5-6.2) % Calcium 7.9 L (8.5-10.1) mg/dL Magnesium 1.9 (1.8-2.4) mg/dL [place] Results Last 24 Hours: Microbiology 08/13/18 14:00 Urine Culture - Final Urine, Clean Catch MIXED RUSTY >100,000 CFU/ML Med Orders - Current: Current Medications Enoxaparin Sodium (Lovenox) 40 mg SUBCUT Q24H [facility] Last Admin: 08/15/18 13:45 Dose: 40 mg Ceftriaxone Sodium/Dextrose 1 (gm/ Premix) 50 mls @ 100 mls/hr IV Q24H [facility] Last Admin: 08/15/18 15:02 Dose: 100 mls/hr Potassium Chloride 40 meq/ (Sodium Chloride) 1,020 mls @ 125 mls/hr IV Q8H [facility] Last Admin: 08/16/18 08:40 Dose: Not Given Ketorolac Tromethamine (Toradol) 30 mg IM Q6H PRN PRN Reason: Pain (moderate 4-6) Lorazepam (Ativan) 0.25 mg IVPUSH BID@0800,1700 [facility] Meclizine HCl (Antivert) 25 mg PO TID PRN PRN Reason: Dizziness Last Admin: 08/15/18 19:32 Dose: 25 mg Ondansetron HCl (Zofran) 4 mg IVPUSH Q4H PRN PRN Reason: Nausea Last Admin: 08/15/18 19:31 Dose: 4 mg Pantoprazole Sodium (Protonix Iv) 40 mg IV Q12H [facility] Last Admin: 08/16/18 08:47 Dose: 40 mg Discontinued Medications Sodium Chloride (Normal Saline) 1,000 mls @ 999 mls/hr IV STAT ONE Stop: 08/13/18 11:06 Last Admin: 08/13/18 10:26 Dose: 999 mls/hr Potassium Chloride 40 meq/ (Premix) 100 mls @ 25 mls/hr IV ONETIME ONE Stop: 08/13/18 14:51 Last Admin: 08/13/18 11:37 Dose: 25 mls/hr Sodium Chloride (Normal Saline) 1,000 mls @ 125 mls/hr IV STAT ONE Stop: 08/13/18 18:55 Last Admin: 08/13/18 11:37 Dose: 125 mls/hr Potassium Chloride 40 meq/ (Premix) 100 mls @ 25 mls/hr IV ONETIME ONE Stop: 08/13/18 20:38 Last Admin: 08/13/18 17:12 Dose: 25 mls/hr Sodium Chloride (Normal Saline) 1,000 mls @ 100 mls/hr IV ASDIRECTED [facility] Last Admin: 08/14/18 05:41 Dose: 100 mls/hr Potassium Chloride 40 meq/ (Dextrose/Water) 1,020 mls @ 100 mls/hr IV ASDIRECTED [facility] Stop: 08/14/18 18:11 Last Admin: 08/14/18 09:52 Dose: 100 mls/hr Magnesium Sulfate 2 gm/ Premix 50 mls @ 50 mls/hr IV ONETIME ONE Stop: 08/14/18 09:59 Last Admin: 08/14/18 09:36 Dose: 50 mls/hr Potassium Chloride/Sodium Chloride (1/2 Ns With 20 Meq Kcl) 1,000 mls @ 100 mls /hr IV ASDIRECTED [facility] Last Admin: 08/15/18 09:33 Dose: 100 mls/hr Magnesium Sulfate 2 gm/ Premix 50 mls @ 50 mls/hr IV ONETIME ONE Stop: 08/15/18 09:03 Last Admin: 08/15/18 09:26 Dose: 50 mls/hr Magnesium Sulfate 2 gm/ Premix 50 mls @ 50 mls/hr IV ONETIME ONE Stop: 08/16/18 09:05 Last Admin: 08/16/18 08:51 Dose: 50 mls/hr Lorazepam (Ativan) 0.25 mg IVPUSH Q6H PRN PRN Reason: Nausea Last Admin: 08/16/18 08:49 Dose: 0.25 mg Morphine Sulfate (Morphine) 2 mg IVPUSH Q2H PRN PRN Reason: Pain (severe 7-10) Stop: 08/14/18 11:50 Morphine Sulfate (Morphine) 2 mg IVPUSH Q2H PRN PRN Reason: Pain (severe 7-10) Stop: 08/14/18 11:50 Omeprazole (Omeprazole) 40 mg PO ONETIME ONE Stop: 08/14/18 01:07 Last Admin: 08/14/18 04:55 Dose: Not Given Ondansetron HCl (Zofran) 4 mg IVPUSH ONETIME ONE Stop: 08/13/18 10:07 Last Admin: 08/13/18 10:26 Dose: 4 mg Pantoprazole Sodium (Protonix Iv) 40 mg IV Q24H [facility] Last Admin: 08/14/18 09:53 Dose: Not Given Potassium Chloride (Klor-Con 10) 20 meq PO ONETIME ONE Stop: 08/16/18 09:06 Sucralfate (Carafate) 1 gm PO QIDACANDBED [facility] Last Admin: 08/16/18 06:51 Dose: Not Given Sumatriptan Succinate (Imitrex) 6 mg SUBCUT ONETIME ONE Stop: 08/13/18 11:56 Last Admin: 08/13/18 12:45 Dose: Not Given
[2018-08-16] MEDS: Pantoprazole 40 MG Vial IV SCH ×2 (08:47→20:41)
[2018-08-16] MEDS: LORazepam 2 MG/ML SDV IVPUSH PRN (08:49)
[2018-08-16] MEDS ORDERED: Potassium Chloride 10 MEQ Tab.ER PO ONE ×3 (09:05→13:15)
[2018-08-16] MEDS: Enoxaparin 40 MG/0.4 ML Syringe SUBCUT SCH (13:07)
[2018-08-16] MEDS: Ondansetron 4 MG/2 ML SDV IVPUSH PRN ×2 (13:08→20:41)
[2018-08-16] MEDS ORDERED: Potassium Chloride 10% 20 MEQ/15 ML Soln 30 ML UD Cup PO ONE (13:15)
[2018-08-16] MEDS: Meclizine 25 MG Tab PO PRN (13:19)
[2018-08-16] MEDS: cefTRIAXone 1 GM in Premix Bag 1 BAG IV SCH (14:07)
[2018-08-16] MEDS: LORazepam 2 MG/ML SDV IVPUSH SCH (17:36)
[2018-08-17] MEDS: Potassium Chloride 40 MEQ in Sodium Chloride 0.45% 1,000 ML IV SCH ×2 (05:03→10:49)
[2018-08-17 06:18] LABS: CHLORIDE,CL 103 mmol/L (98-107); SODIUM,NA 137 mmol/L (136-145)
[2018-08-17] MEDS: Ondansetron 4 MG/2 ML SDV IVPUSH PRN (06:38)
[2018-08-17] MEDS: LORazepam 2 MG/ML SDV IVPUSH SCH ×2 (09:10→17:27)
[2018-08-17] MEDS: Pantoprazole 40 MG Vial IV SCH ×2 (09:16→22:36)
--- NOTE | 2018-08-17 11:10 | PCM.PN ---
<Steff Wood M - Last Filed: 08/17/18 11:05> - General Info Date of Service: 08/17/18 Admission Dx/Problem (Free Text): Hypokalemia, Intractable N/V Subjective Update: Not feeling well this morning, had 4 emesis overnight. No chest pain or SOB. NO abdominal pain. Functional Status: Reports: Pain Controlled, Tolerating Diet, Ambulating, Urinating - Review of Systems General: Reports: Malaise HEENT: Reports: No Symptoms. Denies: Headaches, Sore Throat Pulmonary: Reports: No Symptoms. Denies: Shortness of Breath Cardiovascular: Reports: No Symptoms. Denies: Chest Pain Gastrointestinal: Reports: Nausea, Vomiting. Denies: Abdominal Pain Genitourinary: Reports: No Symptoms Musculoskeletal: Reports: No Symptoms Skin: Reports: No Symptoms Neurological: Reports: No Symptoms Psychiatric: Reports: No Symptoms - Patient Data Vitals - Most Recent: Last Vital Signs Temp 97.6 F 08/17/18 08:00 Pulse 68 08/17/18 08:00 Resp 18 08/17/18 08:00 BP 115/79 08/17/18 08:00 Pulse Ox 98 08/17/18 08:00 Weight - Most Recent: 74.843 kg I&O - Last 24 Hours: Intake & Output 08/16/18 08/17/18 08/17/18 22:59 06:59 14:59 Intake Total 1598 1997 Output Total 1350 2350 Balance 248 -353 Lab Results Last 24 Hours: Laboratory Results - last 24 hr 08/17/18 Range/Units 04:58 Sodium 137 (136-145) mmol/L Potassium 4.0 (3.5-5.1) mmol/L Chloride 103 (98-107) mmol/L Carbon Dioxide 25.3 (21.0-32.0) mmol/L BUN 1 L (7.0-18.0) mg/dL Creatinine 0.3 L (0.6-1.0) mg/dL Est Cr Clr Drug Dosing 236.78 mL/min Estimated GFR (MDRD) > 60.0 ml/min Glucose 81 (74-106) mg/dL Calcium 8.3 L (8.5-10.1) mg/dL Magnesium 2.0 (1.8-2.4) mg/dL Med Orders - Current: Current Medications Enoxaparin Sodium (Lovenox) 40 mg SUBCUT Q24H [facility] Last Admin: 08/16/18 13:07 Dose: 40 mg Ceftriaxone Sodium/Dextrose 1 (gm/ Premix) 50 mls @ 100 mls/hr IV Q24H [facility] Last Admin: 08/16/18 14:07 Dose: 100 mls/hr Potassium Chloride 40 meq/ (Sodium Chloride) 1,020 mls @ 125 mls/hr IV Q8H [facility] Last Admin: 08/17/18 10:49 Dose: 125 mls/hr Ketorolac Tromethamine (Toradol) 30 mg IM Q6H PRN PRN Reason: Pain (moderate 4-6) Last Admin: 08/16/18 22:47 Dose: 30 mg Ondansetron HCl (Zofran) 4 mg IVPUSH Q4H PRN PRN Reason: Nausea Last Admin: 08/17/18 06:38 Dose: 4 mg Pantoprazole Sodium (Protonix Iv) 40 mg IV Q12H [facility] Last Admin: 08/17/18 09:16 Dose: 40 mg Discontinued Medications Sodium Chloride (Normal Saline) 1,000 mls @ 999 mls/hr IV STAT ONE Stop: 08/13/18 11:06 Last Admin: 08/13/18 10:26 Dose: 999 mls/hr Potassium Chloride 40 meq/ (Premix) 100 mls @ 25 mls/hr IV ONETIME ONE Stop: 08/13/18 14:51 Last Admin: 08/13/18 11:37 Dose: 25 mls/hr Sodium Chloride (Normal Saline) 1,000 mls @ 125 mls/hr IV STAT ONE Stop: 08/13/18 18:55 Last Admin: 08/13/18 11:37 Dose: 125 mls/hr Potassium Chloride 40 meq/ (Premix) 100 mls @ 25 mls/hr IV ONETIME ONE Stop: 08/13/18 20:38 Last Admin: 08/13/18 17:12 Dose: 25 mls/hr Sodium Chloride (Normal Saline) 1,000 mls @ 100 mls/hr IV ASDIRECTED [facility] Last Admin: 08/14/18 05:41 Dose: 100 mls/hr Potassium Chloride 40 meq/ (Dextrose/Water) 1,020 mls @ 100 mls/hr IV ASDIRECTED [facility] Stop: 08/14/18 18:11 Last Admin: 08/14/18 09:52 Dose: 100 mls/hr Magnesium Sulfate 2 gm/ Premix 50 mls @ 50 mls/hr IV ONETIME ONE Stop: 08/14/18 09:59 Last Admin: 08/14/18 09:36 Dose: 50 mls/hr Potassium Chloride/Sodium Chloride (1/2 Ns With 20 Meq Kcl) 1,000 mls @ 100 mls /hr IV ASDIRECTED [facility] Last Admin: 08/15/18 09:33 Dose: 100 mls/hr Magnesium Sulfate 2 gm/ Premix 50 mls @ 50 mls/hr IV ONETIME ONE Stop: 08/15/18 09:03 Last Admin: 08/15/18 09:26 Dose: 50 mls/hr Magnesium Sulfate 2 gm/ Premix 50 mls @ 50 mls/hr IV ONETIME ONE Stop: 08/16/18 09:05 Last Admin: 08/16/18 08:51 Dose: 50 mls/hr Lorazepam (Ativan) 0.25 mg IVPUSH Q6H PRN PRN Reason: Nausea Last Admin: 08/16/18 08:49 Dose: 0.25 mg Lorazepam (Ativan) 0.25 mg IVPUSH BID@0800,1700 [facility] Last Admin: 08/17/18 09:10 Dose: 0.25 mg Meclizine HCl (Antivert) 25 mg PO TID PRN PRN Reason: Dizziness Last Admin: 08/16/18 13:19 Dose: 25 mg Morphine Sulfate (Morphine) 2 mg IVPUSH Q2H PRN PRN Reason: Pain (severe 7-10) Stop: 08/14/18 11:50 Morphine Sulfate (Morphine) 2 mg IVPUSH Q2H PRN PRN Reason: Pain (severe 7-10) Stop: 08/14/18 11:50 Omeprazole (Omeprazole) 40 mg PO ONETIME ONE Stop: 08/14/18 01:07 Last Admin: 08/14/18 04:55 Dose: Not Given Ondansetron HCl (Zofran) 4 mg IVPUSH ONETIME ONE Stop: 08/13/18 10:07 Last Admin: 08/13/18 10:26 Dose: 4 mg Pantoprazole Sodium (Protonix Iv) 40 mg IV Q24H [facility] Last Admin: 08/14/18 09:53 Dose: Not Given Potassium Chloride (Klor-Con 10) 20 meq PO ONETIME ONE Stop: 08/16/18 09:06 Last Admin: 08/16/18 13:13 Dose: Not Given Potassium Chloride (Klor-Con 10) 20 meq PO ONETIME ONE Stop: 08/16/18 13:16 Potassium Chloride (Potassium Chloride) 20 meq PO ONETIME ONE Stop: 08/16/18 13:16 Last Admin: 08/16/18 13:26 Dose: Not Given Potassium Chloride (Klor-Con 10) 20 meq PO ONETIME ONE Stop: 08/16/18 13:16 Last Admin: 08/16/18 13:20 Dose: 20 meq Sucralfate (Carafate) 1 gm PO QIDACANDBED [facility] Last Admin: 08/16/18 06:51 Dose: Not Given Sumatriptan Succinate (Imitrex) 6 mg SUBCUT ONETIME ONE Stop: 08/13/18 11:56 Last Admin: 08/13/18 12:45 Dose: Not Given - Exam General: Alert, Oriented, Cooperative Lungs: Clear to Auscultation, Normal Respiratory Effort Cardiovascular: Regular Rate, Regular Rhythm GI/Abdominal Exam: Normal Bowel Sounds, Soft, Non-Tender, No Organomegaly Extremities: Normal Inspection, Normal Range of Motion, Non-Tender, No Pedal Edema Neurological: No New Focal Deficit Psy/Mental Status: Alert, Normal Affect, Normal Mood - Problem List & Annotations (1) Hypokalemia SNOMED Code(s): 46660560 Code(s): E87.6 - HYPOKALEMIA Status: Acute Current Visit: Yes (2) Dehydration SNOMED Code(s): 61851682 Code(s): E86.0 - DEHYDRATION Status: Acute Current Visit: Yes (3) Hypomagnesemia SNOMED Code(s): 752995384 Code(s): E83.42 - HYPOMAGNESEMIA Status: Acute Current Visit: No (4) Nausea & vomiting SNOMED Code(s): 56468010 Code(s): R11.2 - NAUSEA WITH VOMITING, UNSPECIFIED Status: Acute Priority : High Current Visit: No Qualifiers: Vomiting type: bilious vomiting Qualified Code(s): R11.14 - Bilious vomiting (5) UTI (urinary tract infection) SNOMED Code(s): 93247508 Code(s): N39.0 - URINARY TRACT INFECTION, SITE NOT SPECIFIED Status: Acute Priority: High Current Visit: No Qualifiers: Urinary tract infection type: acute cystitis Hematuria presence: without hematuria Qualified Code(s): N30.00 - Acute cystitis without hematuria (6) History of gastric bypass SNOMED Code(s): 828680789 Code(s): Z98.84 - BARIATRIC SURGERY STATUS Status: Chronic Current Visit : Yes - Problem List Review Problem List Initiated/Reviewed/Updated: Yes - My Orders Last 24 Hours: My Active Orders 08/17/18 09:35 PT Evaluation and Treatment [CONS] Routine 08/17/18 17:00 LORazepam [Ativan] 0.5 mg IVPUSH BID@0800,1700 08/18/18 05:11 BASIC METABOLIC PANEL,BMP [CHEM] AM MG [MAGNESIUM] [CHEM] AM 08/19/18 05:11 BASIC METABOLIC PANEL,BMP [CHEM] AM MG [MAGNESIUM] [CHEM] AM - Plan Plan:: This 32 year old female admitted with hypokalemia, hypernatremia secondary to dehydration and gastric bypass. 1. Intractable nausea, vomiting: Feels poorly today, dizziness back. Continue Protonix BID. Trialed Ativan scheduled, doesn't feel like it did much. Was previously on Amitriptyline for anxiety and Effexor for depression, which she has not been on. She reports she doesn't want to be back on Effexor and will speak with therapist about this and is open to restarting Amitriptyline at some point. Called Dr Crews office, spoke with Marcie GILBERT regarding our concerns regarding intake, nausea and discharge with high potential for another readmission for N/ V and hypokalemia due to poor intake. She will speak with Dr Crews or Lalita GOMEZ and call me back. 2. Hypokalemia: Continue 1/2 NS with 40 KCL, finish bag, then change to 1/2 NS with 20 KCL, potassium 4.0 today. Limited oral intake. Encouraged to start taking in more food as tolerating, maybe starting back at beginning of bypass diet with purees, smoothies and such due to nausea. Needs to increase dietary intake to help stabilize electrolytes. 3. UTI: UC mixed rusty >100,000. treated x 3 days will stop. Full treatment course. VTE prophylaxis: Lovenox. Dispo: 1-2 days Mother in room today, updated on treatment plan, all questions and concerns discussed. <Roosevelt Blackman - Last Filed: 08/17/18 12:17> - General Info Admission Dx/Problem (Free Text): I have seen and examined to patient independently of Steff Wood CNP. I have discussed the case for care of this patient with her. I have reviewed and approve of the plan of care as outlined by her. Please see orders. - Patient Data Vitals - Most Recent: Last Vital Signs Temp 36.4 C 08/17/18 08:00 Pulse 68 08/17/18 08:00 Resp 18 08/17/18 08:00 BP 115/79 08/17/18 08:00 Pulse Ox 98 08/17/18 08:00 I&O - Last 24 Hours: Intake & Output 08/16/18 08/17/18 08/17/18 22:59 06:59 14:59 Intake Total 1598 1997 Output Total 1350 2350 Balance 248 -353 Lab Results Last 24 Hours: Laboratory Results - last 24 hr 08/17/18 Range/Units 04:58 Sodium 137 (136-145) mmol/L Potassium 4.0 (3.5-5.1) mmol/L Chloride 103 (98-107) mmol/L Carbon Dioxide 25.3 (21.0-32.0) mmol/L BUN 1 L (7.0-18.0) mg/dL Creatinine 0.3 L (0.6-1.0) mg/dL Est Cr Clr Drug Dosing 236.78 mL/min Estimated GFR (MDRD) > 60.0 ml/min Glucose 81 (74-106) mg/dL Calcium 8.3 L (8.5-10.1) mg/dL Magnesium 2.0 (1.8-2.4) mg/dL Med Orders - Current: Current Medications Enoxaparin Sodium (Lovenox) 40 mg SUBCUT Q24H [facility] Last Admin: 08/16/18 13:07 Dose: 40 mg Potassium Chloride/Sodium Chloride (1/2 Ns With 20 Meq Kcl) 1,000 mls @ 100 mls /hr IV ASDIRECTED [facility] Ketorolac Tromethamine (Toradol) 30 mg IM Q6H PRN PRN Reason: Pain (moderate 4-6) Last Admin: 08/16/18 22:47 Dose: 30 mg Lorazepam (Ativan) 0.5 mg IVPUSH BID@0800,1700 [facility] Ondansetron HCl (Zofran) 4 mg IVPUSH Q4H PRN PRN Reason: Nausea Last Admin: 08/17/18 06:38 Dose: 4 mg Pantoprazole Sodium (Protonix Iv) 40 mg IV Q12H [facility] Last Admin: 08/17/18 09:16 Dose: 40 mg Discontinued Medications Sodium Chloride (Normal Saline) 1,000 mls @ 999 mls/hr IV STAT ONE Stop: 08/13/18 11:06 Last Admin: 08/13/18 10:26 Dose: 999 mls/hr Potassium Chloride 40 meq/ (Premix) 100 mls @ 25 mls/hr IV ONETIME ONE Stop: 08/13/18 14:51 Last Admin: 08/13/18 11:37 Dose: 25 mls/hr Sodium Chloride (Normal Saline) 1,000 mls @ 125 mls/hr IV STAT ONE Stop: 08/13/18 18:55 Last Admin: 08/13/18 11:37 Dose: 125 mls/hr Ceftriaxone Sodium/Dextrose 1 (gm/ Premix) 50 mls @ 100 mls/hr IV Q24H [facility] Last Admin: 08/16/18 14:07 Dose: 100 mls/hr Potassium Chloride 40 meq/ (Premix) 100 mls @ 25 mls/hr IV ONETIME ONE Stop: 08/13/18 20:38 Last Admin: 08/13/18 17:12 Dose: 25 mls/hr Sodium Chloride (Normal Saline) 1,000 mls @ 100 mls/hr IV ASDIRECTED [facility] Last Admin: 08/14/18 05:41 Dose: 100 mls/hr Potassium Chloride 40 meq/ (Dextrose/Water) 1,020 mls @ 100 mls/hr IV ASDIRECTED [facility] Stop: 08/14/18 18:11 Last Admin: 08/14/18 09:52 Dose: 100 mls/hr Magnesium Sulfate 2 gm/ Premix 50 mls @ 50 mls/hr IV ONETIME ONE Stop: 08/14/18 09:59 Last Admin: 08/14/18 09:36 Dose: 50 mls/hr Potassium Chloride/Sodium Chloride (1/2 Ns With 20 Meq Kcl) 1,000 mls @ 100 mls /hr IV ASDIRECTED [facility] Last Admin: 08/15/18 09:33 Dose: 100 mls/hr Potassium Chloride 40 meq/ (Sodium Chloride) 1,020 mls @ 125 mls/hr IV Q8H [facility] Last Admin: 08/17/18 10:49 Dose: 125 mls/hr Magnesium Sulfate 2 gm/ Premix 50 mls @ 50 mls/hr IV ONETIME ONE Stop: 08/15/18 09:03 Last Admin: 08/15/18 09:26 Dose: 50 mls/hr Magnesium Sulfate 2 gm/ Premix 50 mls @ 50 mls/hr IV ONETIME ONE Stop: 08/16/18 09:05 Last Admin: 08/16/18 08:51 Dose: 50 mls/hr Lorazepam (Ativan) 0.25 mg IVPUSH Q6H PRN PRN Reason: Nausea Last Admin: 08/16/18 08:49 Dose: 0.25 mg Lorazepam (Ativan) 0.25 mg IVPUSH BID@0800,1700 [facility] Last Admin: 08/17/18 09:10 Dose: 0.25 mg Meclizine HCl (Antivert) 25 mg PO TID PRN PRN Reason: Dizziness Last Admin: 08/16/18 13:19 Dose: 25 mg Morphine Sulfate (Morphine) 2 mg IVPUSH Q2H PRN PRN Reason: Pain (severe 7-10) Stop: 08/14/18 11:50 Morphine Sulfate (Morphine) 2 mg IVPUSH Q2H PRN PRN Reason: Pain (severe 7-10) Stop: 08/14/18 11:50 Omeprazole (Omeprazole) 40 mg PO ONETIME ONE Stop: 08/14/18 01:07 Last Admin: 08/14/18 04:55 Dose: Not Given Ondansetron HCl (Zofran) 4 mg IVPUSH ONETIME ONE Stop: 08/13/18 10:07 Last Admin: 08/13/18 10:26 Dose: 4 mg Pantoprazole Sodium (Protonix Iv) 40 mg IV Q24H [facility] Last Admin: 08/14/18 09:53 Dose: Not Given Potassium Chloride (Klor-Con 10) 20 meq PO ONETIME ONE Stop: 08/16/18 09:06 Last Admin: 08/16/18 13:13 Dose: Not Given Potassium Chloride (Klor-Con 10) 20 meq PO ONETIME ONE Stop: 08/16/18 13:16 Potassium Chloride (Potassium Chloride) 20 meq PO ONETIME ONE Stop: 08/16/18 13:16 Last Admin: 08/16/18 13:26 Dose: Not Given Potassium Chloride (Klor-Con 10) 20 meq PO ONETIME ONE Stop: 08/16/18 13:16 Last Admin: 08/16/18 13:20 Dose: 20 meq Sucralfate (Carafate) 1 gm PO QIDACANDBED [facility] Last Admin: 08/16/18 06:51 Dose: Not Given Sumatriptan Succinate (Imitrex) 6 mg SUBCUT ONETIME ONE Stop: 08/13/18 11:56 Last Admin: 08/13/18 12:45 Dose: Not Given
[2018-08-17] MEDS: Sodium Chloride 0.45% with KCl 1,000 ML IV SCH ×2 (13:49→23:44)
[2018-08-17] MEDS: Enoxaparin 40 MG/0.4 ML Syringe SUBCUT SCH (13:59)
--- NOTE | 2018-08-17 14:34 | PCM.SN ---
<Steff Wood M - Last Filed: 08/17/18 14:29> - Free Text/Narrative Note: Kelsey, PT evaluated patient for vestibular concerns. After evaluation she had concerns regarding central vertigo, noticing horizontal and vertical nystagmus. I spoke with Dr New, Neurology, contractor [employer] [facility] at [facility]. She recommended MRI of brain w/wo contrast. She is doesn't feel as though any nutritional concern would be causing this dizziness and would do MRI. Spoke with Radha and her mother Ernesto regarding this and they are both in agreement. I contact Dr Mars Jack's nurse and updated her as well. Will change meds slightly and schedule Zofran 8 mg every 6 hours and trial Reglan 10 mg IV every 8 hours. Mother does not feel comfortable with her going home anytime soon. We discussed goals of current admission. Await MRI currently. <Roosevelt Blackman M - Last Filed: 08/17/18 17:17> - Free Text/Narrative Note: I have seen and examined to patient independently of Steff Wood CNP. I have discussed the case for care of this patient with her. I have reviewed and approve of the plan of care as outlined by her. Please see orders.
[2018-08-17] MEDS: Metoclopramide 10 MG/2 ML SDV IVPUSH SCH ×2 (14:46→22:36)
[2018-08-17] MEDS: Ondansetron 4 MG/2 ML SDV IVPUSH SCH ×2 (14:46→22:36)
[2018-08-17] MEDS ORDERED: Gadobenate Dimeglumine 529 MG/ML 20 ML SDV IVPUSH STA (16:18)
[2018-08-18] MEDS: Ondansetron 4 MG/2 ML SDV IVPUSH SCH ×2 (02:11→08:53)
[2018-08-18 06:23] LABS: CHLORIDE,CL 101 mmol/L (98-107); SODIUM,NA 133 mmol/L (136-145)
[2018-08-18] MEDS: Metoclopramide 10 MG/2 ML SDV IVPUSH SCH (06:39)
[2018-08-18] MEDS: LORazepam 2 MG/ML SDV IVPUSH SCH (07:57)
[2018-08-18] MEDS: Pantoprazole 40 MG Vial IV SCH (08:48)
--- NOTE | 2018-08-18 09:27 | MR ---
INDICATION: Vertigo. TECHNIQUE: Brain and posterior fossa MRI with contrast. The following sequences were obtained: DWI and ADC mapping sequences. 3D T1 weighted sequence. Axial FLAIR, SWI and EDELMIRA T2 weighted sequences of the whole brain. 3D T2-weighted high-resolution sequence of the temporal bones. 3D T1 weighted post-contrast sequence of the whole brain. Gadolinium based contrast agent was used. COMPARISON : Brain MRI from 08/13/2016. FINDINGS: No mass or pathologic intracranial enhancement. Left parietal developmental venous anomaly, an anatomic variant. No diffusion abnormalities. No evidence of recent or prior hemorrhage. No mass effect. The aponte and white matter are normal in signal intensity. There is normal cerebral volume. The configuration of the ventricular system is within normal limits. The sella turcica, its contents and adjacent structures appear normal. All the major intracranial vascular structures demonstrate normal flow-related signal voids and intraluminal enhancement. The membranous labyrinths are normal in appearance, with no signal abnormality or malformation. No mass or pathologic enhancement within the internal auditory canals or the cerebellopontine angle cisterns. The 7th/8th cranial nerve complexes are normal in appearance with no atrophy or signal abnormality. No vessel frankly impinges upon the 7th/8th cranial nerve complexes. The other imaged cranial nerve segments are normal in appearance. The orbital contents are normal. No marrow signal abnormality. Scattered minimal ethmoid air cell mucosal thickening. No signal abnormality within the mastoid air cells. The scalp and other imaged soft tissue structures are normal in appearance. IMPRESSION: 1. No acute intracranial abnormalities, including no evidence of acute infarct. 2. Normal appearance of the posterior fossa structures. No mass within the cerebellopontine angle cisterns or internal auditory canals. No pathologic enhancement along the visualized course of the 7th/8th cranial nerve complexes. The membranous labyrinths of the inner ears are normal in appearance. 3. Remainder of the brain is normal in appearance as well. Dictated by Abelino Roca MD @ Aug 18 2018 9:08AM Signed by Dr. Abelino Roca @ Aug 18 2018 9:26AM
[2018-08-18] MEDS: Sodium Chloride 0.45% with KCl 1,000 ML IV SCH (09:33)
--- NOTE | 2018-08-18 10:04 | PCM.DCSUM1 ---
<Steff Wood M - Last Filed: 08/18/18 10:59> Discharge Summary - Hospital Course Brief History: 32 y/o female s/p bariatric surgery in Mar 2018 who presents today to the ER accompanied by her mother for nausea and vomiting. Patient has been feeling nauseous for the past 4-5 days, poor appetite with intermittent vomiting. No hematemesis. Denies any headache, cough, chest pain, dyspnea, abdominal pain, dysuria, diarrhea, constipation. No recent illness. States that her nausea has been on and off since her surgery. Had upper EGD performed recently about 2 weeks ago which did not show any acute finding. In addition, she tells me she has not taken her antidepressant since feeling nauseous. Did not try anti-nausea medication at home since she states it doesn't work. Denies any alcohol consumption. No illicit drug use. In the ER, she was found to by hypokalemic K 2.8. Now receiving NS IV with KCl. States she still feels nauseous but improved from before. Diagnosis: Stroke: No - Discharge Data Discharge Date: 08/18/18 Discharge Disposition: Home, Self-Care 01 Condition: Stable - Discharge Diagnosis/Problem(s) (1) Hypokalemia SNOMED Code(s): 33611729 ICD Code: E87.6 - HYPOKALEMIA Status: Resolved (2) Dehydration SNOMED Code(s): 65263052 ICD Code: E86.0 - DEHYDRATION Status: Resolved (3) Hypomagnesemia SNOMED Code(s): 578759584 ICD Code: E83.42 - HYPOMAGNESEMIA Status: Acute (4) Nausea & vomiting SNOMED Code(s): 64662766 ICD Code: R11.2 - NAUSEA WITH VOMITING, UNSPECIFIED Status: Acute Priority: High Qualifiers: Vomiting type: bilious vomiting Qualified Code(s): R11.14 - Bilious vomiting (5) UTI (urinary tract infection) SNOMED Code(s): 11711788 ICD Code: N39.0 - URINARY TRACT INFECTION, SITE NOT SPECIFIED Status: Resolved Priority: High Qualifiers: Urinary tract infection type: acute cystitis Hematuria presence: without hematuria Qualified Code(s): N30.00 - Acute cystitis without hematuria (6) History of gastric bypass SNOMED Code(s): 877935842 ICD Code: Z98.84 - BARIATRIC SURGERY STATUS Status: Chronic - Patient Summary/Data Consults: Consultations 08/17/18 09:35 PT Evaluation and Treatment [CONS] Routine - Patient Instructions Diet: Usual Diet as Tolerated Diet, Other: try take in high potassium foods if possible, such as bananas. Activity: As Tolerated Showering/Bathing: May Shower Notify Provider of: Fever, Increased Pain, Swelling and Redness, Drainage, Nausea and/or Vomiting Other/Special Instructions: If you start feeling poorly again, please contact Dr Crews's office. - Discharge Plan *PRESCRIPTION DRUG MONITORING PROGRAM REVIEWED*: Not Applicable *COPY OF PRESCRIPTION DRUG MONITORING REPORT IN PATIENT AUTUMN: Not Applicable Prescriptions/Med Rec: Metoclopramide HCl [Reglan] 10 mg PO TID #30 tablet Omeprazole 20 mg PO BID #60 tablet. Ondansetron [Zofran Odt] 8 mg PO Q6H #40 tab.rapdis Potassium Chloride [Klor-Con 10] 20 meq PO DAILY #10 tab.er Home Medications: Home Meds Metoclopramide HCl [Reglan] 10 mg PO TID #30 tablet 08/18/18 [Rx] Omeprazole 20 mg PO BID #60 tablet. 08/18/18 [Rx] Ondansetron [Zofran Odt] 8 mg PO Q6H #40 tab.rapdis 08/18/18 [Rx] Potassium Chloride [Klor-Con 10] 20 meq PO DAILY #10 tab.er 08/18/18 [Rx] Oxygen Therapy Mode: Room Air Patient Handouts: Potassium chloride tablets, extended-release tablets or capsules, Metoclopramide tablets, Ondansetron tablets, Hypokalemia, Dehydration , Adult, [id number], Omeprazole tablets (OTC) Referrals: Ena Crews MD [Ordering Only Provider] - 08/22/18 2:00 pm (Appointment is with Lalita then you will meet with Eh Scruggs afterwards. Dr Crews is in clinic that day and will be available as well. ) Rebecca Chun PA [Physician Story Analyst] - 08/24/18 1:15 pm (This was not able to made with Trisha due to her being booked for 3 weeks. ) - Discharge Summary/Plan Comment DC Time >30 min.: No Discharge Summary/Plan Comment: Admitting Diagnoses: Intractable N/V Hypokalemia Hypernatremia Discharge Diagnoses: N/V- improved Dizziness UTI- fully treated Other PMH Depression Anxiety S/P gastric bypass Radha was admitted and treated for hypoklaemia dn hypernatremia with IVFs. She was placed on zofran, which helped some. We attempted Carafate due to so GERD like symptoms, but she became dizzy and didn't like this. We continued Protonix BID IV which helped some. I was in contacted with OFELIA Jack to Dr Crews, bariatric surgeon in [place]. We placed her on some Ativan which didn't seem to help much with nausea or improving oral intake. Radha became dizzy day 2 of admission, which was new. This was felt initially related to dehydration and hypokalemia. Once these resolved, dizziness continued. PT was consulted to evaluate, they felt possible central cause. I spoke with Dr New, MRI of brain obtained. This returned negative. PT evaluated her this morning, Dizziness was better and no further nystagmus was noted. She was placed on Zofran 8 mg every 6 hours and Reglan every 8 hours to help with nausea. She was feeling better this morning, one emesis overnight. She is near current baseline with food intake and is ready for discharge. I spoke with Marcie GILBERT regarding close follow up with Dr Crews, this was made with JASON Celis for this coming Tuesday. I will send Reglan and Zofran prescriptions home with her. I will also give her some potassium tabs to take, as she refuses solution for the next 5 days. She was encouraged to contact Dr Crews's office with concern. I spoke with Radha and her mother regarding overal concerns with Radha's nausea and vomiting. I did let them know that if things don't improve they need to be looking into feeding tube or reversal of gastric bypass. She needs to continue taking ZOfran and reglan for a longer period of time to see if these work. She also needs to stay in better contact with Dr Crews's office so they are aware when things are not going well. She will be disharged home today. Today potassium is 4.0 and magnesium is 1.6. I will give some Magnesium IV prior to DC. She is to follow with JASON Celis as scheduled next week. Return to ED or clinic if concerns should arise. - General Info Date of Service: 08/18/18 Admission Dx/Problem (Free Text: Nausea Subjective Update: Feeling improved today, still dizzy intermittently, Antivert not working. Nausea intermittently, still not taking much in. No pain. having BMs. Functional Status: Reports: Pain Controlled, Ambulating, Urinating. Denies: Tolerating Diet - Review of Systems General: Reports: No Symptoms. Denies: Fever, Weakness, Fatigue HEENT: Reports: Other (dizziness) Pulmonary: Reports: No Symptoms. Denies: Shortness of Breath Cardiovascular: Reports: No Symptoms. Denies: Chest Pain Gastrointestinal: Reports: Nausea. Denies: Abdominal Pain Genitourinary: Reports: No Symptoms. Denies: Dysuria, Frequency, Burning Musculoskeletal: Reports: No Symptoms Skin: Reports: No Symptoms Neurological: Reports: No Symptoms Psychiatric: Reports: No Symptoms - Patient Data Vitals - Most Recent: Last Vital Signs Temp 96.8 F 08/18/18 07:44 Pulse 67 08/18/18 07:44 Resp 13 08/18/18 07:44 BP 105/78 08/18/18 07:44 Pulse Ox 96 08/18/18 07:44 Weight - Most Recent: 74.843 kg I&O - Last 24 hours: Intake & Output 08/17/18 08/18/18 08/18/18 22:59 06:59 14:59 Intake Total 1640 1118 Output Total 2300 2000 Balance -660 -882 Lab Results - Last 24 hrs: Laboratory Results - last 24 hr 08/18/18 Range/Units 05:12 Sodium 133 L (136-145) mmol/L Potassium 4.0 (3.5-5.1) mmol/L Chloride 101 (98-107) mmol/L Carbon Dioxide 23.1 (21.0-32.0) mmol/L BUN 1 L (7.0-18.0) mg/dL Creatinine 0.4 L (0.6-1.0) mg/dL Est Cr Clr Drug Dosing 177.58 mL/min Estimated GFR (MDRD) > 60.0 ml/min Glucose 75 (74-106) mg/dL Calcium 8.6 (8.5-10.1) mg/dL Magnesium 1.6 L (1.8-2.4) mg/dL Med Orders - Current: Current Medications Enoxaparin Sodium (Lovenox) 40 mg SUBCUT Q24H [facility] Last Admin: 08/17/18 13:59 Dose: 40 mg Potassium Chloride/Sodium Chloride (1/2 Ns With 20 Meq Kcl) 1,000 mls @ 100 mls /hr IV ASDIRECTED [facility] Last Admin: 08/18/18 09:33 Dose: 100 mls/hr Ketorolac Tromethamine (Toradol) 30 mg IM Q6H PRN PRN Reason: Pain (moderate 4-6) Last Admin: 08/16/18 22:47 Dose: 30 mg Lorazepam (Ativan) 0.5 mg IVPUSH BID@0800,1700 [facility] Last Admin: 08/18/18 07:57 Dose: 0.5 mg Metoclopramide HCl (Reglan) 10 mg IVPUSH Q8H [facility] Last Admin: 08/18/18 06:39 Dose: 10 mg Ondansetron HCl (Zofran) 8 mg IVPUSH Q6H [facility] Last Admin: 08/18/18 08:53 Dose: 8 mg Pantoprazole Sodium (Protonix Iv) 40 mg IV Q12H [facility] Last Admin: 08/18/18 08:48 Dose: 40 mg Discontinued Medications Gadobenate Dimeglumine (Multihance) 15 ml IVPUSH ONETIME STA Stop: 08/17/18 16:19 Last Admin: 08/17/18 16:19 Dose: 15 ml Sodium Chloride (Normal Saline) 1,000 mls @ 999 mls/hr IV STAT ONE Stop: 08/13/18 11:06 Last Admin: 08/13/18 10:26 Dose: 999 mls/hr Potassium Chloride 40 meq/ (Premix) 100 mls @ 25 mls/hr IV ONETIME ONE Stop: 08/13/18 14:51 Last Admin: 08/13/18 11:37 Dose: 25 mls/hr Sodium Chloride (Normal Saline) 1,000 mls @ 125 mls/hr IV STAT ONE Stop: 08/13/18 18:55 Last Admin: 08/13/18 11:37 Dose: 125 mls/hr Ceftriaxone Sodium/Dextrose 1 (gm/ Premix) 50 mls @ 100 mls/hr IV Q24H [facility] Last Admin: 08/16/18 14:07 Dose: 100 mls/hr Potassium Chloride 40 meq/ (Premix) 100 mls @ 25 mls/hr IV ONETIME ONE Stop: 08/13/18 20:38 Last Admin: 08/13/18 17:12 Dose: 25 mls/hr Sodium Chloride (Normal Saline) 1,000 mls @ 100 mls/hr IV ASDIRECTED [facility] Last Admin: 08/14/18 05:41 Dose: 100 mls/hr Potassium Chloride 40 meq/ (Dextrose/Water) 1,020 mls @ 100 mls/hr IV ASDIRECTED [facility] Stop: 08/14/18 18:11 Last Admin: 08/14/18 09:52 Dose: 100 mls/hr Magnesium Sulfate 2 gm/ Premix 50 mls @ 50 mls/hr IV ONETIME ONE Stop: 08/14/18 09:59 Last Admin: 08/14/18 09:36 Dose: 50 mls/hr Potassium Chloride/Sodium Chloride (1/2 Ns With 20 Meq Kcl) 1,000 mls @ 100 mls /hr IV ASDIRECTED [facility] Last Admin: 08/15/18 09:33 Dose: 100 mls/hr Potassium Chloride 40 meq/ (Sodium Chloride) 1,020 mls @ 125 mls/hr IV Q8H [facility] Last Admin: 08/17/18 10:49 Dose: 125 mls/hr Magnesium Sulfate 2 gm/ Premix 50 mls @ 50 mls/hr IV ONETIME ONE Stop: 08/15/18 09:03 Last Admin: 08/15/18 09:26 Dose: 50 mls/hr Magnesium Sulfate 2 gm/ Premix 50 mls @ 50 mls/hr IV ONETIME ONE Stop: 08/16/18 09:05 Last Admin: 08/16/18 08:51 Dose: 50 mls/hr Lorazepam (Ativan) 0.25 mg IVPUSH Q6H PRN PRN Reason: Nausea Last Admin: 08/16/18 08:49 Dose: 0.25 mg Lorazepam (Ativan) 0.25 mg IVPUSH BID@0800,1700 [facility] Last Admin: 08/17/18 09:10 Dose: 0.25 mg Meclizine HCl (Antivert) 25 mg PO TID PRN PRN Reason: Dizziness Last Admin: 08/16/18 13:19 Dose: 25 mg Morphine Sulfate (Morphine) 2 mg IVPUSH Q2H PRN PRN Reason: Pain (severe 7-10) Stop: 08/14/18 11:50 Morphine Sulfate (Morphine) 2 mg IVPUSH Q2H PRN PRN Reason: Pain (severe 7-10) Stop: 08/14/18 11:50 Omeprazole (Omeprazole) 40 mg PO ONETIME ONE Stop: 08/14/18 01:07 Last Admin: 08/14/18 04:55 Dose: Not Given Ondansetron HCl (Zofran) 4 mg IVPUSH ONETIME ONE Stop: 08/13/18 10:07 Last Admin: 08/13/18 10:26 Dose: 4 mg Ondansetron HCl (Zofran) 4 mg IVPUSH Q4H PRN PRN Reason: Nausea Last Admin: 08/17/18 06:38 Dose: 4 mg Pantoprazole Sodium (Protonix Iv) 40 mg IV Q24H [facility] Last Admin: 08/14/18 09:53 Dose: Not Given Potassium Chloride (Klor-Con 10) 20 meq PO ONETIME ONE Stop: 08/16/18 09:06 Last Admin: 08/16/18 13:13 Dose: Not Given Potassium Chloride (Klor-Con 10) 20 meq PO ONETIME ONE Stop: 08/16/18 13:16 Potassium Chloride (Potassium Chloride) 20 meq PO ONETIME ONE Stop: 08/16/18 13:16 Last Admin: 08/16/18 13:26 Dose: Not Given Potassium Chloride (Klor-Con 10) 20 meq PO ONETIME ONE Stop: 08/16/18 13:16 Last Admin: 08/16/18 13:20 Dose: 20 meq Sucralfate (Carafate) 1 gm PO QIDACANDBED [facility] Last Admin: 08/16/18 06:51 Dose: Not Given Sumatriptan Succinate (Imitrex) 6 mg SUBCUT ONETIME ONE Stop: 08/13/18 11:56 Last Admin: 08/13/18 12:45 Dose: Not Given - Exam General: Reports: Alert, Oriented, Cooperative, No Acute Distress Lungs: Reports: Clear to Auscultation, Normal Respiratory Effort Cardiovascular: Reports: Regular Rate, Regular Rhythm GI/Abdominal Exam: Normal Bowel Sounds, Soft, Non-Tender, No Organomegaly, No Distention Extremities: Normal Inspection, Normal Range of Motion Skin: Reports: Warm, Dry Neurological: Reports: No New Focal Deficit Psy/Mental Status: Reports: Alert, Normal Affect, Normal Mood <Roosevelt Blackman - Last Filed: 08/19/18 12:59> Discharge Summary - Hospital Course HPI Initial Comments: I have seen and examined to patient independently of Steff Wood CNP. I have discussed the case for care of this patient with her. I have reviewed and approve of the plan of care as outlined by her. Please see orders. - Patient Summary/Data Consults: Consultations 08/17/18 09:35 PT Evaluation and Treatment [CONS] Routine - Patient Data Vitals - Most Recent: Last Vital Signs Temp 36.1 C 08/18/18 11:24 Pulse 64 08/18/18 11:24 Resp 14 08/18/18 11:24 BP 115/80 08/18/18 11:24 Pulse Ox 99 08/18/18 11:24 Med Orders - Current: Current Medications Discontinued Medications Enoxaparin Sodium (Lovenox) 40 mg SUBCUT Q24H [facility] Last Admin: 08/18/18 11:51 Dose: 40 mg Gadobenate Dimeglumine (Multihance) 15 ml IVPUSH ONETIME STA Stop: 08/17/18 16:19 Last Admin: 08/17/18 16:19 Dose: 15 ml Sodium Chloride (Normal Saline) 1,000 mls @ 999 mls/hr IV STAT ONE Stop: 08/13/18 11:06 Last Admin: 08/13/18 10:26 Dose: 999 mls/hr Potassium Chloride 40 meq/ (Premix) 100 mls @ 25 mls/hr IV ONETIME ONE Stop: 08/13/18 14:51 Last Admin: 08/13/18 11:37 Dose: 25 mls/hr Sodium Chloride (Normal Saline) 1,000 mls @ 125 mls/hr IV STAT ONE Stop: 08/13/18 18:55 Last Admin: 08/13/18 11:37 Dose: 125 mls/hr Ceftriaxone Sodium/Dextrose 1 (gm/ Premix) 50 mls @ 100 mls/hr IV Q24H [facility] Last Admin: 08/16/18 14:07 Dose: 100 mls/hr Potassium Chloride 40 meq/ (Premix) 100 mls @ 25 mls/hr IV ONETIME ONE Stop: 08/13/18 20:38 Last Admin: 08/13/18 17:12 Dose: 25 mls/hr Sodium Chloride (Normal Saline) 1,000 mls @ 100 mls/hr IV ASDIRECTED [facility] Last Admin: 08/14/18 05:41 Dose: 100 mls/hr Potassium Chloride 40 meq/ (Dextrose/Water) 1,020 mls @ 100 mls/hr IV ASDIRECTED [facility] Stop: 08/14/18 18:11 Last Admin: 08/14/18 09:52 Dose: 100 mls/hr Magnesium Sulfate 2 gm/ Premix 50 mls @ 50 mls/hr IV ONETIME ONE Stop: 08/14/18 09:59 Last Admin: 08/14/18 09:36 Dose: 50 mls/hr Potassium Chloride/Sodium Chloride (1/2 Ns With 20 Meq Kcl) 1,000 mls @ 100 [facility]ls [facility] Admin: 08/15/18 09:33 Dose: 100 mls/hr Potassium Chloride 40 meq/ (Sodium Chloride) 1,020 mls @ 125 mls/hr IV Q8H [facility] Last Admin: 08/17/18 10:49 Dose: 125 mls/hr Magnesium Sulfate 2 gm/ Premix 50 mls @ 50 mls/hr IV ONETIME ONE Stop: 08/15/18 09:03 Last Admin: 08/15/18 09:26 Dose: 50 mls/hr Magnesium Sulfate 2 gm/ Premix 50 mls @ 50 mls/hr IV ONETIME ONE Stop: 08/16/18 09:05 Last Admin: 08/16/18 08:51 Dose: 50 mls/hr Potassium Chloride/Sodium Chloride (1/2 Ns With 20 Meq Kcl) 1,000 mls @ 100 mls /hr IV ASDIRECTED [facility] Last Admin: 08/18/18 09:33 Dose: 100 mls/hr Magnesium Sulfate 2 gm/ Premix 50 mls @ 50 mls/hr IV ONETIME ONE Stop: 08/18/18 12:26 Last Admin: 08/18/18 11:51 Dose: 50 mls/hr Ketorolac Tromethamine (Toradol) 30 mg IM Q6H PRN PRN Reason: Pain (moderate 4-6) Last Admin: 08/16/18 22:47 Dose: 30 mg Lorazepam (Ativan) 0.25 mg IVPUSH Q6H PRN PRN Reason: Nausea Last Admin: 08/16/18 08:49 Dose: 0.25 mg Lorazepam (Ativan) 0.25 mg IVPUSH BID@0800,1700 [facility] Last Admin: 08/17/18 09:10 Dose: 0.25 mg Lorazepam (Ativan) 0.5 mg IVPUSH BID@0800,1700 [facility] Last Admin: 08/18/18 07:57 Dose: 0.5 mg Meclizine HCl (Antivert) 25 mg PO TID PRN PRN Reason: Dizziness Last Admin: 08/16/18 13:19 Dose: 25 mg Metoclopramide HCl (Reglan) 10 mg IVPUSH Q8H [facility] Last Admin: 08/18/18 06:39 Dose: 10 mg Morphine Sulfate (Morphine) 2 mg IVPUSH Q2H PRN PRN Reason: Pain (severe 7-10) Stop: 08/14/18 11:50 Morphine Sulfate (Morphine) 2 mg IVPUSH Q2H PRN PRN Reason: Pain (severe 7-10) Stop: 08/14/18 11:50 Omeprazole (Omeprazole) 40 mg PO ONETIME ONE Stop: 08/14/18 01:07 Last Admin: 08/14/18 04:55 Dose: Not Given Ondansetron HCl (Zofran) 4 mg IVPUSH ONETIME ONE Stop: 08/13/18 10:07 Last Admin: 08/13/18 10:26 Dose: 4 mg Ondansetron HCl (Zofran) 4 mg IVPUSH Q4H PRN PRN Reason: Nausea Last Admin: 08/17/18 06:38 Dose: 4 mg Ondansetron HCl (Zofran) 8 mg IVPUSH Q6H [facility] Last Admin: 08/18/18 08:53 Dose: 8 mg Pantoprazole Sodium (Protonix Iv) 40 mg IV Q24H [facility] Last Admin: 08/14/18 09:53 Dose: Not Given Pantoprazole Sodium (Protonix Iv) 40 mg IV Q12H [facility] Last Admin: 08/18/18 08:48 Dose: 40 mg Potassium Chloride (Klor-Con 10) 20 meq PO ONETIME ONE Stop: 08/16/18 09:06 Last Admin: 08/16/18 13:13 Dose: Not Given Potassium Chloride (Klor-Con 10) 20 meq PO ONETIME ONE Stop: 08/16/18 13:16 Potassium Chloride (Potassium Chloride) 20 meq PO ONETIME ONE Stop: 08/16/18 13:16 Last Admin: 08/16/18 13:26 Dose: Not Given Potassium Chloride (Klor-Con 10) 20 meq PO ONETIME ONE Stop: 08/16/18 13:16 Last Admin: 08/16/18 13:20 Dose: 20 meq Sucralfate (Carafate) 1 gm PO QIDACANDBED [facility] Last Admin: 08/16/18 06:51 Dose: Not Given Sumatriptan Succinate (Imitrex) 6 mg SUBCUT ONETIME ONE Stop: 08/13/18 11:56 Last Admin: 08/13/18 12:45 Dose: Not Given
[2018-08-18] MEDS ORDERED: Magnesium Sulfate/Water 2 GM in Premix Bag 1 BAG IV ONE (11:27)
[2018-08-18 11:46] VITALS: BP 115/80
[2018-08-18] MEDS: Enoxaparin 40 MG/0.4 ML Syringe SUBCUT SCH (11:51)
== END 2018-08-18 13:35 | disposition home or self-care (01) | DRG 422 ==
LOC: MW.ED 09:48 → MW.MS 11:21 → OBSVTOIN 08-15 07:28 → MW.MS 08-15 15:56
PROVIDERS: ADMIT Internal Medicine; ATTEND Internal Medicine
DX: E87.6 Hypokalemia (principal); F32.9 Major depressive disorder, single episode, unspecified; F41.9 Anxiety disorder, unspecified; E86.0 Dehydration; E83.42 Hypomagnesemia; Z79.899 Other long term (current) drug therapy; Z98.84 Bariatric surgery status; N30.00 Acute cystitis without hematuria; E87.0 Hyperosmolality and hypernatremia; E87.8 Other disorders of electrolyte and fluid balance, not elsewhere classified
CPT/HCPCS: 36415; 70553; 70553-26; 74018; 74018-26; 80048; 80053; 80061; 80305-QW; 81001; 81025; 83036; 83690; 83735; 84100; 84132; 84443; 85025; 85027; 87086; 93005; 96361; 96365; 96375; 97161-GP; 97530-GP; 99284; 99285-25; A4217; A9270-GY; A9577; C9113; J0696; J1650; J1885; J2060; J2405; J2765; J3475; J3480; J7030; J7040; J7060

== ENCOUNTER 2021-09-20 14:04 | Emergency (ER) | payer BC ==
[2021-09-20] MEDS ORDERED: Sodium Chloride 0.9% 2.5 ML Syringe FLUSH PRN (14:33)
[2021-09-20] MEDS ORDERED: Sodium Chloride 0.9% 1,000 ML IV ONE (14:33)
[2021-09-20] MEDS ORDERED: Sodium Chloride 0.9% 10 ML Syringe FLUSH PRN (14:33)
[2021-09-20 15:19] LABS: CARBON DIOXIDE,CO2 23.6 mmol/L (21.0-32.0); POTASSIUM,K 3.4 mmol/L (3.5-5.1)
[2021-09-20] MEDS ORDERED: Iopamidol 755 MG/ML 500 ML Multipack Bottle IVPUSH STA (15:50)
[2021-09-20] MEDS ORDERED: Morphine 2 MG/ML SYRINGE IVPUSH ONE (17:10)
[2021-09-20] MEDS ORDERED: traMADol 50 MG Tab PO ONE (20:06)
[2021-09-20 20:40] VITALS: BP 122/72; PULSE 82
== END 2021-09-20 20:41 | disposition home or self-care (01) ==
LOC: MW.ED 14:04
DX: T83.32XA Displacement of intrauterine contraceptive device, initial encounter (principal); D64.9 Anemia, unspecified; R22.9 Localized swelling, mass and lump, unspecified; Z20.822 Contact with and (suspected) exposure to COVID-19
CPT/HCPCS: 36415; 74177; 76830; 80053; 81001; 81025; 82105; 82378; 82670; 83520; 83615; 84402; 84403; 85014; 85018; 85025; 86304; 86336; 87086; 87635; 96361; 96374; 99284; A9270; J2270; J3490; J7030; Q9967; U0002

== ENCOUNTER 2021-10-01 12:10 | Inpatient (IN) | payer BC ==
[2021-10-01] MEDS ORDERED: Acetaminophen 325 MG Tab PO PRN (13:53)
[2021-10-01] MEDS ORDERED: Sodium Chloride 0.9% 2.5 ML Syringe FLUSH PRN (13:53)
[2021-10-01] MEDS ORDERED: Ondansetron 4 MG/2 ML SDV IVPUSH PRN (13:53)
[2021-10-01] MEDS ORDERED: Sodium Chloride 0.9% 20 ML SDV IV PRN (13:53)
[2021-10-01] MEDS ORDERED: Acetaminophen/HYDROcodone 325-5 MG Tab PO PRN (13:53)
[2021-10-01] MEDS ORDERED: Sodium Chloride 0.9% 10 ML Syringe FLUSH PRN (13:53)
[2021-10-01 15:29] LABS: CARBON DIOXIDE,CO2 26.9 mmol/L (21.0-32.0); POTASSIUM,K 2.9 mmol/L (3.5-5.1)
[2021-10-01] MEDS: Ibuprofen 600 MG Tab PO PRN (15:44)
[2021-10-01] MEDS: Doxycycline 100 MG in Sodium Chloride 0.9% 100 ML IV SCH (17:45)
[2021-10-01] MEDS: cefOXitin 2 GM in Premix Bag 1 BAG IV SCH (19:04)
[2021-10-01] MEDS: Ketorolac 30 MG/ML SDV IVPUSH PRN (20:53)
[2021-10-02] MEDS: cefOXitin 2 GM in Premix Bag 1 BAG IV SCH ×4 (00:52→18:42)
[2021-10-02] MEDS: Doxycycline 100 MG in Sodium Chloride 0.9% 100 ML IV SCH ×2 (05:12→16:37)
[2021-10-02] MEDS ORDERED: Iron Sucrose Complex 500 MG in Sodium Chloride 0.9% 250 ML IV ONE (06:15)
[2021-10-02 06:29] LABS: CARBON DIOXIDE,CO2 28.2 mmol/L (21.0-32.0); POTASSIUM,K 2.9 mmol/L (3.5-5.1)
[2021-10-02] MEDS ORDERED: diphenhydrAMINE 50 MG/ML SDV IVPUSH ONE (09:45)
[2021-10-02] MEDS ORDERED: Metoclopramide 10 MG/2 ML SDV IVPUSH ONE (09:45)
[2021-10-02] MEDS: Ibuprofen 600 MG Tab PO PRN (15:33)
[2021-10-02] MEDS ORDERED: NS with KCl 40mEq 1,000 ML IV SCH (18:30)
[2021-10-02] MEDS: Ketorolac 30 MG/ML SDV IVPUSH PRN (22:44)
[2021-10-03] MEDS: Calcium Gluconate 10% 1 GM/10 ML SDV IV SCH ×2 (00:19→07:14)
[2021-10-03] MEDS: cefOXitin 2 GM in Premix Bag 1 BAG IV SCH ×4 (00:21→18:35)
[2021-10-03] MEDS: Doxycycline 100 MG in Sodium Chloride 0.9% 100 ML IV SCH ×2 (04:12→16:40)
[2021-10-03 06:42] LABS: CARBON DIOXIDE,CO2 27.3 mmol/L (21.0-32.0); POTASSIUM,K 3.7 mmol/L (3.5-5.1)
[2021-10-03] MEDS: Ketorolac 30 MG/ML SDV IVPUSH PRN (12:11)
[2021-10-03] MEDS ORDERED: Acetaminophen/Butalbital/Caffeine 325-50-40 MG Tab PO ONE (16:18)
[2021-10-03] MEDS ORDERED: Acetaminophen 500 MG Tab PO ONE (16:23)
[2021-10-04] MEDS: cefOXitin 2 GM in Premix Bag 1 BAG IV SCH ×4 (00:08→18:12)
[2021-10-04] MEDS: Doxycycline 100 MG in Sodium Chloride 0.9% 100 ML IV SCH ×2 (04:32→16:25)
[2021-10-04 06:18] LABS: CARBON DIOXIDE,CO2 25.2 mmol/L (21.0-32.0); POTASSIUM,K 3.3 mmol/L (3.5-5.1)
[2021-10-04] MEDS: Ketorolac 30 MG/ML SDV IVPUSH PRN ×2 (14:27→20:36)
[2021-10-05] MEDS: Doxycycline 100 MG in Sodium Chloride 0.9% 100 ML IV SCH (04:15)
[2021-10-05] MEDS: cefOXitin 2 GM in Premix Bag 1 BAG IV SCH ×4 (06:06→11:17)
[2021-10-05 07:49] VITALS: BP 116/67; PULSE 60
[2021-10-05] MEDS: Ketorolac 30 MG/ML SDV IVPUSH PRN (09:11)
== END 2021-10-05 12:30 | disposition home or self-care (01) | DRG 531 ==
LOC: MW.OB 12:10 → OBSVTOIN 13:48
PROVIDERS: ADMIT Obstetrics & Gynecology; ATTEND Obstetrics & Gynecology
PROC: 30233N1 Transfusion of Nonautologous Red Blood Cells into Peripheral Vein, Percutaneous Approach (ICD-10-PCS; principal; 2021-10-01)
DX: N73.9 Female pelvic inflammatory disease, unspecified (principal); N70.92 Oophoritis, unspecified; N70.93 Salpingitis and oophoritis, unspecified; F41.9 Anxiety disorder, unspecified; F32.A Depression, unspecified; D39.11 Neoplasm of uncertain behavior of right ovary; E87.6 Hypokalemia; D50.8 Other iron deficiency anemias; Z98.84 Bariatric surgery status; Z20.822 Contact with and (suspected) exposure to COVID-19
CPT/HCPCS: 36415; 36430; 80053; 83605; 83735; 85025; 85027; 86850; 86900; 86901; 86920; 87040; A9270-GY; J0610; J0694; J1200; J1756; J1885; J2765; J3480; J3490; J7050; P9016; U0002

== ENCOUNTER 2022-01-27 11:13 | Emergency (ER) | payer BC ==
[2022-01-27] MEDS ORDERED: Sodium Chloride 0.9% 1,000 ML IV ONE (12:00)
[2022-01-27] MEDS ORDERED: Ondansetron 4 MG/2 ML SDV IVPUSH ONE (12:00)
[2022-01-27 12:57] LABS: CORONAVIRUS COVID-19 NAA NEGATIVE (NEGATIVE); INFLUENZA A NAA NEGATIVE (NEGATIVE); INFLUENZA B NAA NEGATIVE (NEGATIVE)
[2022-01-27 13:03] LABS: CARBON DIOXIDE,CO2 26.7 mmol/L (21.0-32.0); POTASSIUM,K 3.3 mmol/L (3.5-5.1)
[2022-01-27] MEDS ORDERED: Iopamidol 755 MG/ML 500 ML Multipack Bottle IVPUSH ONE (13:50)
[2022-01-27 15:18] VITALS: BP 95/62; PULSE 69
== END 2022-01-27 15:22 | disposition home or self-care (01) ==
LOC: MW.ED 11:13
DX: K52.9 Noninfective gastroenteritis and colitis, unspecified (principal); Z20.822 Contact with and (suspected) exposure to COVID-19
CPT/HCPCS: 0240U; 36415; 74177; 80053; 81003; 81025; 83690; 85025; 96361; 96374; 99284; J2405; J7030; Q9967

== ENCOUNTER 2022-02-01 07:28 | Emergency (ER) | payer BC ==
[2022-02-01] MEDS ORDERED: Ondansetron 4 MG/2 ML SDV IVPUSH ONE (08:09)
[2022-02-01] MEDS ORDERED: Lactated Ringers 1,000 ML IV ONE (08:09)
[2022-02-01 09:21] LABS: CARBON DIOXIDE,CO2 26.6 mmol/L (21.0-32.0); POTASSIUM,K 2.9 mmol/L (3.5-5.1)
[2022-02-01 11:22] VITALS: BP 109/68; PULSE 71
== END 2022-02-01 11:22 | disposition home or self-care (01) ==
LOC: MW.ED 07:28
DX: R19.7 Diarrhea, unspecified (principal)
CPT/HCPCS: 36415; 80053; 83605; 85025; 87045; 87046; 87324; 87328; 87329; 87449; 87899; 96361; 96374; 99284; J2405; J7120

== ENCOUNTER 2023-01-09 14:33 | Emergency (ER) | payer BC ==
[2023-01-09] MEDS ORDERED: LORazepam 2 MG/ML SDV IVPUSH ONE (15:15)
[2023-01-09] MEDS ORDERED: Sodium Chloride 0.9% 1,000 ML IV ONE (15:15)
[2023-01-09 15:45] LABS: APPEARANCE,URINE CLEAR; BILIRUBIN,URINE NEGATIVE (NEGATIVE); GLUCOSE,URINE NEGATIVE (NEGATIVE); KETONES,URINE 40 mg/dL (NEGATIVE); LEUKOCYTE ESTERASE,URINE NEGATIVE (NEGATIVE); NITRITE,URINE NEGATIVE (NEGATIVE); OCCULT BLOOD,URINE NEGATIVE (NEGATIVE); PROTEIN,URINE NEGATIVE (NEGATIVE); UROBILINOGEN,URINE 0.2 EU/dL (<2.0)
[2023-01-09 15:50] LABS: BASOPHILS ABSOLUTE AUTO 0.03 K/uL (0.00-0.20); BASOPHILS PERCENT AUTO 0.5 % (0.0-1.0); EOSINOPHILS PERCENT AUTO 1.7 % (0.0-6.0); HEMATOCRIT 40.2 % (37.0-47.0); HEMOGLOBIN 13.9 g/dL (12.0-16.0); IMMATURE GRAN ABSOLUTE AUTO 0.02 K/uL (0.00-0.05); IMMATURE GRAN PERCENT AUTO 0.3 % (0.0-0.4); LYMPHOCYTES ABSOLUTE AUTO 1.25 K/uL (1.00-4.80); MEAN CORPUSCULAR HEMOGLOBIN 30.5 pg (28.0-32.0); MEAN CORPUSCULAR HGB CONC 34.6 g/dL (32.0-36.0); MEAN CORPUSCULAR VOLUME 88.2 fL (83.0-99.0); MEAN PLATELET VOLUME 10.1 fL (9.4-12.3); MONOCYTES ABSOLUTE AUTO 0.54 K/uL (0.00-0.80); MONOCYTES PERCENT AUTO 9.1 % (0.0-8.0); NEUTROPHILS ABSOLUTE AUTO 4.02 K/uL (1.80-7.70); NEUTROPHILS PERCENT AUTO 67.4 % (41.0-71.0); PLATELET COUNT,PLT 249 K/uL (150-400); RED BLOOD CELL COUNT 4.56 M/uL (4.10-5.30); WHITE BLOOD CELL COUNT,WBC 5.96 K/uL (3.9-11.3)
[2023-01-09 15:51] LABS: COLOR,URINE DARK YELLOW
[2023-01-09 15:55] LABS: AMPHETAMINES SCREEN, URINE NEGATIVE (CUTOFF=500); BARBITURATE SCREEN,URINE NEGATIVE (CUTOFF=200); BENZODIAZEPINES SCREEN,URINE NEGATIVE (CUTOFF=150); BUPRENORPHINE SCREEN,URINE NEGATIVE (CUTOFF=10); METHADONE SCREEN, URINE NEGATIVE (CUTOFF=200); METHAMPHETAMINES SCREEN, URINE NEGATIVE (CUTOFF=500); OXYCODONE SCREEN,URINE NEGATIVE (CUT0FF=100); PCP SCREEN,URINE NEGATIVE (CUTOFF=25); PROPOXYPHENE SCREEN,URINE NEGATIVE (CUTOFF=300); THC SCREEN,URINE 20 NG/ML NEGATIVE (CUTOFF=50)
[2023-01-09 16:06] LABS: INR 1.03 (0.86-1.11); PTT,PARTIAL THROMBOPLSTIN TIME 25.3 SEC (23.9-30.7)
[2023-01-09 16:22] LABS: A/G RATIO 1.2 (0.9-1.6); ACETAMINOPHEN <2.0 ug/mL; ALANINE AMINOTRANSFERASE,ALT 30 IU/L (14-63); ALBUMIN 4.2 g/dL (3.4-5.0); ALKALINE PHOSPHATASE 48 U/L (46-116); ASPARTATE AMNIOTRANSFERASE,AST 77 IU/L (15-37); BILIRUBIN TOTAL 0.7 mg/dL (0.2-1.0); BLOOD UREA NITROGEN,BUN 10 mg/dL (7.0-18.0); CALCIUM 9.2 mg/dL (8.5-10.1); CARBON DIOXIDE,CO2 24.5 mmol/L (21.0-32.0); CHLORIDE,CL 104 mmol/L (98-107); CREATININE 0.7 mg/dL (0.6-1.0); EST CRCL DRUG DOSING (CG) 92.79 mL/min; GLUCOSE RANDOM 103 mg/dL (74-106); MAGNESIUM 1.9 mg/dL (1.8-2.4); POTASSIUM,K 3.4 mmol/L (3.5-5.1); PROTEIN TOTAL,TP 7.7 g/dL (6.4-8.2); SALICYLATE 0.6 mg/dL (0.0-20.0); SODIUM,NA 141 mmol/L (136-145); TSH ULTRASENSITIVE 2.24 uIU/mL (0.36-3.74)
[2023-01-09 16:25] LABS: ESTIMATED GFR 116 mL/min (>60); ETHANOL BLOOD MEDICAL < 3.0 mg/dL
[2023-01-09 17:10] VITALS: BP 127/86; PULSE 96
== END 2023-01-09 17:08 | disposition home or self-care (01) ==
LOC: MW.ED 14:33
DX: R41.0 Disorientation, unspecified (principal); Z90.710 Acquired absence of both cervix and uterus; Z20.822 Contact with and (suspected) exposure to COVID-19
CPT/HCPCS: 36415; 70450; 80053; 80143; 80179; 80305; 80307; 81003; 83735; 84443; 84703; 85025; 85610; 85730; 87635; 96361; 96374; 99285; J2060; J7030; 99284; U0002